=== PATIENT | female | born 1935 | race Caucasian/White ===

== ENCOUNTER 2017-07-21 16:20 | Inpatient (IN) | payer OTHER ==
[~2017-07-21] VITALS: Ht 165.1 cm; Wt 67.0 kg
[~2017-07-21 16:20] MED LIST: ADVIN25/60 INH; ASPI81TA28 PO; ATEN50TA8 PO; ATOR-22 PO; CALCTAB5 PO; CHOL1000 PO; DOCU100C31 PO; DTRSR/10 PO; FURO-85 PO; GABA-113 PO; LEVO25TA5 PO; MELATAB2 PO; VNTHFA/IN INH; VSC/5 PO
[2017-07-21] MEDS ORDERED: ASPI325T39 PO (16:37)
[2017-07-21] MEDS ORDERED: LPR25 PO (16:37)
[2017-07-21] MEDS ORDERED: PRED10TA PO (16:43)
[2017-07-21] MEDS ORDERED: AZIT250T PO (16:43)
[2017-07-21] MEDS ORDERED: WARF2.5T8 PO (16:43)
--- NOTE | 2017-07-21 16:44 | EMERGENCY ROOM VISIT NOTE ---
History Report prepared by Martin: Kenji Solis Under the Supervision of: Dr. Celio Brown M.D. First contact with patient: 16:26 Chief Complaint: REFERRED BY DOCTOR Stated Complaint: SENT FROM DR OFFICE. LOW SODIUM/HIGH POTASSIUM History of Present Illness The patient is an 82 year old white female with a past medical history of HTN, hyponatremia, stage 3 CKD, and COPD who presents to the ED with a cc of abnormal labs that were discovered prior to arrival. Positive hyponatremia, hyperkalemia. Negative AMS, pain, bowel issues, urinary symptoms, swelling. Per the patient's daughter, the patient was being seen by her PCP earlier today for a routine appt and had blood-work. The blood-work results yielded a sodium of 127, a potassium of 5.8, and a kidney function of 24.9. She was then referred to Dr. Carranza of cardiology after discovering that the patient had afib. She had an echo in the office, and then was referred here for evaluation for the abnormal labs. The patient will be put on Coumadin. Pt takes Levothyroxine and Lasix. 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 Review of Systems See HPI for pertinent positives and negatives. A total of ten systems were reviewed and were otherwise negative. Past Medical & Surgical Medical Problems: (1) CKD (chronic kidney disease), stage III (2) COPD (chronic obstructive pulmonary disease) (3) HLD (hyperlipidemia) (4) HTN (hypertension) (5) Hyponatremia (6) Right Hip DJD (7) Vulvar cancer Surgical Problems: (1) H/O carotid endarterectomy Family History Diabetes mellitus FH: cancer Social History Smoking Status: Former Smoker Drug Use: none Marital Status: Housing Status: lives alone Occupation Status: retired Current/Historical Medications Scheduled Aspirin (Aspirin Ec), 325 MG PO DAILY Atorvastatin (Lipitor), 20 MG PO QPM Azithromycin (Zithromax), 250 MG PO DIRECTED Calcium (Caltrate), 600 MG PO QAM Cholecalciferol (Vitamin D3), 2,000 INTER.UNIT PO DAILY Docusate Sodium (Docusate Sodium), 1 CAP PO BID Fluticasone Prop/Salmeterol (Advair Diskus 250/50 60 Dose), 1 PUFF INH Q12H Furosemide (Lasix), 20 MG PO DAILY Gabapentin (Neurontin), 300 MG PO QPM Levothyroxine Sodium (Levothyroxine Sodium), 25 MCG PO DAILY Melatonin (Melatonin Maximum Strengt), 1 TAB PO HS Metoprolol Tartrate (Lopressor), 25 MG PO BID Oxybutynin Chloride (Oxybutynin Chloride ER), 10 MG PO DAILY Prednisone (Prednisone), 10 MG PO DIRECTED Warfarin Sod (Jantoven), 2.5 MG PO DAILY Miscellaneous Medications Albuterol Hfa (Ventolin Hfa) Allergies Coded Allergies: Oxycodone (Unverified Allergy, Unknown, DIZZY ITCHING, 07/21/17) Simvastatin (Unverified Allergy, Unknown, RASH, 07/21/17) Tramadol (Unverified Allergy, Unknown, DIZZY, 07/21/17) Physical Exam Vital Signs Date Time Temp Pulse Resp B/P (MAP) Pulse Ox O2 Delivery O2 Flow Rate FiO2 07/21/17 18:43 96 20 171/103 96 Room Air 07/21/17 17:05 89 07/21/17 16:23 36.7 94 20 153/81 94 Room Air Physical Exam GENERAL: Awake, alert, well-appearing, NAD, hard of hearing. HENT: Normocephalic, atraumatic. Hearing aid in right ear, connected with metal clip to gown. EYES: Normal conjunctiva. Sclera non-icteric. NECK: Supple. No nuchal rigidity. FROM. RESPIRATORY: CTAB, no rhonchi, wheezing, crackles CARDIAC: Regular rate, irregular rhythm, no MRG ABDOMEN: Soft, NTND, BS+ MSK: No chest wall TTP, trace LE edema julio césar, no asymmetry NEURO: GCS 15, CN 2-12 intact, moves all 4s on command SKIN: No rash or jaundice noted. Medical Decision & Procedures ER Provider Diagnostic Interpretation: X-ray: Per my interpretation, radiologist review. SINGLE VIEW CHEST CLINICAL HISTORY: Hyponatremia. FINDINGS: An AP, portable, upright chest radiograph is compared to study dated 01/07/2016. The examination is degraded by portable technique and patient rotation. The heart is enlarged and there is atherosclerotic calcification of the thoracic aorta. There is mild congestion of the central pulmonary vasculature. Chronic interstitial thickening is similar to previous. No airspace consolidation or large pleural effusion is identified. No pneumothorax is seen. The skeletal structures are osteopenic. Advanced degenerative change is present in the shoulders and thoracic spine. IMPRESSION: 1. Cardiomegaly with mild pulmonary vascular congestion. 2. No airspace consolidation or large pleural effusion is seen. Electronically signed by: Terrell You M.D. 07/21/2017 4:58 PM Dictated Date/Time: 07/21/2017 4:57 PM Laboratory Results 07/21/17 17:05 Red Blood Count 3.62, Mean Corpuscular Volume 89.2, Mean Corpuscular Hemoglobin 31.2, Mean Corpuscular Hemoglobin Concent 35.0, Mean Platelet Volume 9.1, Neutrophils (%) (Auto) 62.7, Lymphocytes (%) (Auto) 22.5, Monocytes (%) (Auto) 10.6, Eosinophils (%) (Auto) 3.7, Basophils (%) (Auto) 0.3, Neutrophils # (Auto ) 3.91, Lymphocytes # (Auto) 1.40, Monocytes # (Auto) 0.66, Eosinophils # (Auto ) 0.23, Basophils # (Auto) 0.02 07/21/17 17:05 Test 07/21/17 17:05 White Blood Count 6.23 K/uL (4.8-10.8) Red Blood Count 3.62 M/uL (4.2-5.4) Hemoglobin 11.3 g/dL (12.0-16.0) Hematocrit 32.3 % (37-47) Mean Corpuscular Volume 89.2 fL (80-100) Mean Corpuscular Hemoglobin 31.2 pg (25-34) Mean Corpuscular Hemoglobin Concent 35.0 g/dl (32-36) Platelet Count 246 K/uL (130-400) Mean Platelet Volume 9.1 fL (7.4-10.4) Neutrophils (%) (Auto) 62.7 % Lymphocytes (%) (Auto) 22.5 % Monocytes (%) (Auto) 10.6 % Eosinophils (%) (Auto) 3.7 % Basophils (%) (Auto) 0.3 % Neutrophils # (Auto) 3.91 K/uL (1.4-6.5) Lymphocytes # (Auto) 1.40 K/uL (1.2-3.4) Monocytes # (Auto) 0.66 K/uL (0.11-0.59) Eosinophils # (Auto) 0.23 K/uL (0-0.5) Basophils # (Auto) 0.02 K/uL (0-0.2) RDW Standard Deviation 43.4 fL (36.4-46.3) RDW Coefficient of Variation 13.1 % (11.5-14.5) Immature Granulocyte % (Auto) 0.2 % Immature Granulocyte # (Auto) 0.01 K/uL (0.00-0.02) Prothrombin Time 10.7 SECONDS (9.0-12.0) Prothromb Time International Ratio 1.0 (0.9-1.1) Activated Partial Thromboplast Time 27.2 SECONDS (21.0-31.0) Partial Thromboplastin Ratio 1.0 Anion Gap 8.0 mmol/L (3-11) Est Creatinine Clear Calc Drug Dose 50.4 ml/min Estimated GFR () 77.3 Estimated GFR (Non- 66.7 BUN/Creatinine Ratio 28.0 (10-20) Osmolality 270 mOsm/kg (280-300) Calcium Level 9.3 mg/dl (8.5-10.1) Phosphorus Level 3.1 mg/dl (2.5-4.9) Magnesium Level 1.8 mg/dl (1.8-2.4) Total Bilirubin 0.4 mg/dl (0.2-1) Direct Bilirubin 0.1 mg/dl (0-0.2) Aspartate Amino Transf (AST/SGOT) 17 U/L (15-37) Alanine Aminotransferase (ALT/SGPT) 15 U/L (12-78) Alkaline Phosphatase 54 U/L (45-117) Pro-B-Type Natriuretic Peptide 6302 pg/ml (0-1800) Total Protein 7.1 gm/dl (6.4-8.2) Albumin 3.4 gm/dl (3.4-5.0) Thyroid Stimulating Hormone (TSH) 2.320 uIu/ml (0.300-4.500) Laboratory results reviewed by me ECG Indication: other (irregularly irregular, ventricular rate) Rate (beats per minute): 88 Rhythm: normal sinus Findings: other (normal QRS interval, no sts changes or TWI) ED Course 1629: Review of EMR: most recent labs here: BUN of 57, creatinine of 1.3, sodium of 142, potassium of 3.6. 1630: The patient was evaluated in room A9B. A complete history and physical exam was performed. 1814: The patient's walk test was 90-93%. 1827: I discussed the patient with Nayana Baker- she will evaluate the patient for further treatment. 1833: Upon reexamination, the patient was resting comfortably. I discussed the test results and treatment plan with her. She expressed understanding and agreement of the treatment plan. The patient will be evaluated for further management. Medical Decision The patient is an 82 year old white female with a past medical history of HTN, hyponatremia, stage 3 CKD, and COPD who presents to the ED with a cc of abnormal labs that were discovered prior to arrival. Positive hyponatremia, hyperkalemia. Negative AMS, pain, bowel issues, urinary symptoms, swelling. Differential diagnosis: SIADH, kidney dysfunction, diuretic use, medication side effect, thyroid disorder, CHF, kidney dysfunction, liver dysfunction Patient was seen and evaluated at the bedside. Patient very well-appearing although hard of hearing. Patient was referred given concern for hyponatremia and hyperkalemia. Blood work was completed. Patient did have an elevated BNP with mild vascular congestion seen on chest x-ray. Patient did have an ambulatory test and her oxygen saturation maintained 90-93%. Patient only had trace lower extremity edema. Patient did have a recent change in medications was was started on metoprolol as well as Coumadin given recent diagnosis of atrial fibrillation. Patient denies any complaints of chest pain or shortness of breath. I spoke with the hospitalist given the concern for the acute change in her sodium and they agreed the patient would benefit from additional workup. Patient admitted Medication Reconcilliation Current Medication List: was personally reviewed by me Blood Pressure Screening Patient's blood pressure: Elevated blood pressure Blood pressure disposition: Referred to PCP Consults Time Called: 1823 Consulting Physician: Nayana Baker Returned Call: 1826 I discussed the patient with Nayana Baker- she will evaluate the patient for further treatment. Impression Primary Impression: Hyponatremia Additional Impression: Atrial fibrillation Scribe Attestation The scribe's documentation has been prepared under my direction and personally reviewed by me in its entirety. I confirm that the note above accurately reflects all work, treatment, procedures, and medical decision making performed by me. Departure Information Dispostion Being Evaluated By Hospitalist Montrell Mcgee M.D. (PCP) Patient Instructions My [facility] Problem Qualifiers Additional Impression: Atrial fibrillation Atrial fibrillation type: unspecified Qualified Codes: I48.91 - Unspecified atrial fibrillation
--- NOTE | 2017-07-21 16:59 | DIAGNOSTIC IMAGING REPORT ---
SINGLE VIEW CHEST CLINICAL HISTORY: Hyponatremia. FINDINGS: An AP, portable, upright chest radiograph is compared to study dated 01/07/2016. The examination is degraded by portable technique and patient rotation. The heart is enlarged and there is atherosclerotic calcification of the thoracic aorta. There is mild congestion of the central pulmonary vasculature. Chronic interstitial thickening is similar to previous. No airspace consolidation or large pleural effusion is identified. No pneumothorax is seen. The skeletal structures are osteopenic. Advanced degenerative change is present in the shoulders and thoracic spine. IMPRESSION: 1. Cardiomegaly with mild pulmonary vascular congestion. 2. No airspace consolidation or large pleural effusion is seen. Electronically signed by: Terrell You M.D. 07/21/2017 4:58 PM Dictated Date/Time: 07/21/2017 4:57 PM
[2017-07-21 17:20] LABS: BASO % 0.3 %; BASO ABS # 0.02 K/uL (0-0.2); COMPLETE YES; EOS % 3.7 %; HEMATOCRIT 32.3 % (37-47); IG% 0.2 %; LYMPH % 22.5 %; MEAN CELL VOLUME 89.2 fL (80-100); MEAN CORPUSCULAR HEMOGLOBIN 31.2 pg (25-34); MEAN PLATELET VOLUME 9.1 fL (7.4-10.4); MONO % 10.6 %; NEUT % 62.7 %; PLATELET COUNT 246 K/uL (130-400); RED BLOOD COUNT 3.62 M/uL (4.2-5.4); WHITE BLOOD COUNT 6.23 K/uL (4.8-10.8)
[2017-07-21 17:32] LABS: PROTHROMBIN TIME (PATIENT) 10.7 SECONDS (9.0-12.0)
[2017-07-21 17:37] LABS: CALCIUM 9.3 mg/dl (8.5-10.1); CREATININE 0.81 mg/dl (0.60-1.20); MAGNESIUM 1.8 mg/dl (1.8-2.4); POTASSIUM 4.6 mmol/L (3.5-5.1)
[2017-07-21 17:49] LABS: PHOSPHORUS 3.1 mg/dl (2.5-4.9); THYROID STIMULATING HORMONE 2.32 uIu/ml (0.300-4.500)
[2017-07-21] MEDS ORDERED: ACETAMINOPHEN 325 MG TAB PO PRN (19:15)
[2017-07-21] MEDS ORDERED: ONDANSETRON INJ 2 MG/ML 2 ML VIAL IV PRN (19:15)
[2017-07-21 19:45] VITALS: BP 169/87; PULSE 99; TEMP 36.7; O2SAT 92; Ht 165.1 cm; Wt 67.0 kg
[2017-07-21] MEDS ORDERED: DOCUSATE SODIUM 100 MG CAP PO PRN (19:45)
--- NOTE | 2017-07-21 20:04 | History and Physical ---
History & Physical Date & Time of Service: Jul 21, 2017 ~ 18:45 Chief Complaint: Sent From Dr Office. Low Sodium/High Potassium Primary Care Physician: Montrell Gloria M.D. History of Present Illness 82 year old female who was referred to the ED by outpatient cardiology for evaluation of hyperkalemia and hyponatremia that was found on outpatient labs. Yesterday during a routine clinic visit with her PCP, patient was found to be atrial fibrillation. Patient had an isolated episode of atrial fibrillation during a stress test last year however has had no further documented episodes. She was evaluated by cardiology today who obtained a routine chemistry panel that showed K+ 5.8 and Na+ 127. Patient reports she has been feeling well recently. She denies any chest pain, palpitations or shortness of breath. Over the past week she has noted an occasional cough productive for clear sputum. She denies lightheadedness, dizziness, diaphoresis, and syncopal events. No abdominal pain, nausea, vomiting, or diarrhea. She denies fever and chills. No urinary symptoms. She denies any weight gain or worsening lower extremity edema. She reports her appetite fluctuates between being good and fair. She denies any dramatic changes in her diet. She reports she drinks two cups of coffee in the morning and about one bottle of water per day. She has been taking all of her medicines as prescribed and denies needing to take any additional Lasix tabs. In the ED, patient's Na+ is 126 and K+ is normal at 4.6. Past Medical/Surgical History Medical Problems: (1) Abnormal echocardiography Permanent Comment: 2016 - EF 60-64%, grade I diastolic dysfunction, mild - mod MR, mild TR Status: Chronic (2) Atrial fibrillation Status: Chronic (3) CKD (chronic kidney disease), stage III Status: Chronic (4) COPD (chronic obstructive pulmonary disease) Status: Chronic (5) HLD (hyperlipidemia) Status: Chronic (6) HTN (hypertension) Status: Chronic (7) Hypothyroidism Status: Chronic (8) Osteoporosis Status: Chronic (9) Vulvar cancer Permanent Comment: Carcinoma in situ, treated with laser Status: Chronic Surgical Problems: (1) H/O carotid endarterectomy Permanent Comment: 2003 Status: Chronic (2) History of total right hip arthroplasty Status: Chronic Family History non contributory due to patient's advanced age Social History Smoking Status: Former Smoker Alcohol Use: occasionally Immunizations History of Influenza Vaccine: Yes Influenza Vaccine Date: Jul 20, 2017 History of Tetanus Vaccine?: Yes Tetanus Immunization Date: Jun 21, 2008 History of Pneumococcal: Yes Pneumococcal Date: Aug 06, 2015 Multi-Drug Resistant Organisms History of MDRO: No Allergies Coded Allergies: Oxycodone (Unverified Allergy, Unknown, DIZZY ITCHING, 07/21/17) Simvastatin (Unverified Allergy, Unknown, RASH, 07/21/17) Tramadol (Unverified Allergy, Unknown, DIZZY, 07/21/17) Home Medications Scheduled Aspirin (Aspirin Ec), 325 MG PO DAILY Atorvastatin (Lipitor), 20 MG PO QPM Azithromycin (Zithromax), 250 MG PO DIRECTED Calcium (Caltrate), 600 MG PO QAM Cholecalciferol (Vitamin D3), 2,000 INTER.UNIT PO DAILY Fluticasone Prop/Salmeterol (Advair Diskus 250/50 60 Dose), 1 PUFF INH Q12H Furosemide (Lasix), 20 MG PO DAILY Gabapentin (Neurontin), 300 MG PO QPM Levothyroxine Sodium (Levothyroxine Sodium), 25 MCG PO DAILY Melatonin (Melatonin Maximum Strengt), 1 TAB PO HS Metoprolol Tartrate (Lopressor), 25 MG PO BID Oxybutynin Chloride (Oxybutynin Chloride ER), 10 MG PO DAILY Prednisone (Prednisone), 10 MG PO DIRECTED Warfarin Sod (Jantoven), 2.5 MG PO DAILY Scheduled PRN Albuterol Hfa (Ventolin Hfa), 2 PUFFS INH QID PRN for SOB/Wheezing Docusate Sodium (Docusate Sodium), 1 CAP PO BID PRN for Constipation Review of Systems ROS per HPI, all other systems reviewed and negative Physical Exam Vital Signs Date Time Temp Pulse Resp B/P (MAP) Pulse Ox O2 Delivery O2 Flow Rate FiO2 07/21/17 19:33 93 20 161/93 94 Room Air 07/21/17 18:43 96 20 171/103 96 Room Air 07/21/17 17:05 89 07/21/17 16:23 36.7 94 20 153/81 94 Room Air General Appearance: no apparent distress Head: normocephalic, atraumatic Eyes: normal inspection, sclerae normal ENT: + pertinent finding ([place]) Neck: supple, no JVD Respiratory/Chest: no respiratory distress, + decreased breath sounds Cardiovascular: normal peripheral pulses, + irregularly irregular (rate controlled), + pertinent finding (trace edema BLLE) Abdomen/GI: normal bowel sounds, non tender, soft Extremities/Musculoskelatal: normal inspection, no calf tenderness Neurologic/Psych: no motor/sensory deficits, alert, normal mood/affect, oriented x 3 Skin: normal color, warm/dry Diagnostics Laboratory Results Results Past 24 Hours Test 07/21/17 17:05 07/21/17 19:19 Range/Units White Blood Count 6.23 4.8-10.8 K/uL Red Blood Count 3.62 4.2-5.4 M/uL Hemoglobin 11.3 12.0-16.0 g/dL Hematocrit 32.3 37-47 % Mean Corpuscular Volume 89.2 80-100 fL Mean Corpuscular Hemoglobin 31.2 25-34 pg Mean Corpuscular Hemoglobin Concent 35.0 32-36 g/dl Platelet Count 246 130-400 K/uL Mean Platelet Volume 9.1 7.4-10.4 fL Neutrophils (%) (Auto) 62.7 % Lymphocytes (%) (Auto) 22.5 % Monocytes (%) (Auto) 10.6 % Eosinophils (%) (Auto) 3.7 % Basophils (%) (Auto) 0.3 % Neutrophils # (Auto) 3.91 1.4-6.5 K/uL Lymphocytes # (Auto) 1.40 1.2-3.4 K/uL Monocytes # (Auto) 0.66 0.11-0.59 K/uL Eosinophils # (Auto) 0.23 0-0.5 K/uL Basophils # (Auto) 0.02 0-0.2 K/uL RDW Standard Deviation 43.4 36.4-46.3 fL RDW Coefficient of Variation 13.1 11.5-14.5 % Immature Granulocyte % (Auto) 0.2 % Immature Granulocyte # (Auto) 0.01 0.00-0.02 K/uL Prothrombin Time 10.7 9.0-12.0 SECONDS Prothromb Time International Ratio 1.0 0.9-1.1 Activated Partial Thromboplast Time 27.2 21.0-31.0 SECONDS Partial Thromboplastin Ratio 1.0 Sodium Level 126 136-145 mmol/L Potassium Level 4.6 3.5-5.1 mmol/L Chloride Level 93 98-107 mmol/L Carbon Dioxide Level 25 21-32 mmol/L Anion Gap 8.0 3-11 mmol/L Blood Urea Nitrogen 23 7-18 mg/dl Creatinine 0.81 0.60-1.20 mg/dl Est Creatinine Clear Calc Drug Dose 50.4 ml/min Estimated GFR () 77.3 Estimated GFR (Non- 66.7 BUN/Creatinine Ratio 28.0 10-20 Random Glucose 100 70-99 mg/dl Osmolality 270 280-300 mOsm/kg Calcium Level 9.3 8.5-10.1 mg/dl Phosphorus Level 3.1 2.5-4.9 mg/dl Magnesium Level 1.8 1.8-2.4 mg/dl Total Bilirubin 0.4 0.2-1 mg/dl Direct Bilirubin 0.1 0-0.2 mg/dl Aspartate Amino Transf (AST/SGOT) 17 15-37 U/L Alanine Aminotransferase (ALT/SGPT) 15 12-78 U/L Alkaline Phosphatase 54 45-117 U/L Pro-B-Type Natriuretic Peptide 6302 0-1800 pg/ml Total Protein 7.1 6.4-8.2 gm/dl Albumin 3.4 3.4-5.0 gm/dl Thyroid Stimulating Hormone (TSH) 2.320 0.300-4.500 uIu/ml Diagnostic Radiology CXR IMPRESSION: 1. Cardiomegaly with mild pulmonary vascular congestion. 2. No airspace consolidation or large pleural effusion is seen. Impression Assessment and Plan HYPOTONIC HYPOVOLEMIC HYPONATREMIA - admit to tele - patient referred from outpatient cardiology office when she was found to be hyponatremic and hyperkalemic on outpatient labs; patient asymptomatic - K+ normal in the ED at 4.6, Na+ 126 - suspect hypovolemia from poor PO intake at times in combination with diuretic use - also supported with elevated BUN - will hold furosemide and give 1L NSS @ 100ml/hr and recheck Na+ 4 hours into infusion - make adjustments accordingly ATRIAL FIBRILLATION - recently diagnosed as an outpatient on routine clinic visit; asymptomatic - patient was to change atenolol to metoprolol - so will start metoprolol tomorrow; also was to start Coumadin so will give first dose tonight - obtain echo DIASTOLIC DYSFUNCTION, MILD VALVULAR DISEASE - echo 2016 - EF 60-64%, grade I diastolic dysfunction, mild - mod MR, mild TR - patient currently with mild dehydration and hyponatremia so holding diuretics - CXR read as mild congestion however no crackles noted on exam HLD - continue statin HYPOTHYROIDISM - continue levothyroxine - TSH WNL DVT PROPHYLAXIS - SQ heparin until INR > 2.0 CODE STATUS - Patient is a full code as per my discussion with her. DISPO - In my clinical judgment this beneficiary meets acute admission criteria, established by [facility], that includes being hospitalized through two midnights. ADDENDUM: I have seen and evaluated the patient and agree with the assessment and plan as stated. Waldemar, DO Level of Care Telemetry Resuscitation Status FULL RESUSCITATION VTE Prophylaxis VTE Risk Assessment Done? Y/N: Yes Risk Level: Moderate Given or contraindicated: Unfractionated heparin SQ
[2017-07-21] MEDS ORDERED: SODIUM CHLORIDE 0.9% 1000ML 1,000 ML IV SCH (21:00)
[2017-07-21] MEDS: FLUTICASONE/SALMETEROL 250/50 (ADVAIR) 14 PUFF/1 INHALER INH SCH (22:42)
[2017-07-21] MEDS: WARFARIN SOD 2.5 MG TAB PO SCH (22:43)
[2017-07-21] MEDS: ATORVASTATIN 20 MG TAB PO SCH (22:43)
[2017-07-21] MEDS: GABAPENTIN 300 MG CAP PO SCH (22:43)
[2017-07-21 23:55] VITALS: BP 156/86; PULSE 99; TEMP 36.6; O2SAT 91
[2017-07-22] VITALS (7 sets, daily range): BP systolic 128–146; BP diastolic 61–79; PULSE 53–102; TEMP 36.6–36.8; O2SAT 90–96
[2017-07-22 00:48] LABS: BUN/CREATININE RATIO 25.5 (10-20); CALCIUM 8.5 mg/dl (8.5-10.1); CREATININE 0.75 mg/dl (0.60-1.20); POTASSIUM 4.3 mmol/L (3.5-5.1)
[2017-07-22] MEDS: HEPARIN SOD 5000 UNIT/0.5 ML CARP SQ SCH ×3 (05:58→21:37)
[2017-07-22] MEDS: LEVOTHYROXINE 25 MCG TAB PO SCH (05:59)
[2017-07-22 07:03] LABS: HEMATOCRIT 31.5 % (37-47); MEAN CELL VOLUME 89.2 fL (80-100); MEAN CORPUSCULAR HEMOGLOBIN 30.6 pg (25-34); MEAN CORPUSCULAR HGB CONC 34.3 g/dl (32-36); PLATELET COUNT 232 K/uL (130-400); RED BLOOD COUNT 3.53 M/uL (4.2-5.4); WHITE BLOOD COUNT 5.59 K/uL (4.8-10.8)
[2017-07-22 07:10] LABS: PROTHROMBIN TIME (PATIENT) 11.2 SECONDS (9.0-12.0)
[2017-07-22 07:27] LABS: BUN/CREATININE RATIO 24.3 (10-20); CALCIUM 8.9 mg/dl (8.5-10.1); CREATININE 0.67 mg/dl (0.60-1.20); POTASSIUM 4.4 mmol/L (3.5-5.1)
[2017-07-22] MEDS: OXYBUTYNIN CHLORIDE 5 MG TABCR PO SCH (08:14)
[2017-07-22] MEDS: CALCIUM 600MG + VIT D 400 IU TAB PO SCH (08:14)
[2017-07-22] MEDS: ASPIRIN 325 MG ECTAB PO SCH (08:14)
[2017-07-22] MEDS: METOPROLOL TARTRATE 25 MG TAB PO SCH ×2 (08:14→21:35)
[2017-07-22] MEDS: FLUTICASONE/SALMETEROL 250/50 (ADVAIR) 14 PUFF/1 INHALER INH SCH ×2 (08:14→21:34)
[2017-07-22] MEDS: CHOLECALCIFEROL 1000 INTER.UNIT TAB PO SCH (08:14)
--- NOTE | 2017-07-22 08:35 | ECHOCARDIOGRAM REPORT ---
*NOTICE TO RECEIVING [employer] This information is strictly Confidential and protected under [place] law. [place] law prohibits you from making any further disclosure of this information unless further disclosure is expressly permitted by the written consent of the person to whom it pertains or is authorized by law. A general authorization for the release of medical or other information is not sufficient for this purpose. Hospital accepts no responsibility if the information is made available to any other person, INCLUDING THE PATIENT. Interpretation Summary * Echocardiogram Report * Name: GRACIELA COWAN Study Date: 07/22/2017 07:26 AM BP: 129/67 mmHg * Patient Location: [facility] HR: 91 * : 1935 (M/d/yyyy) Gender: Female Height: 65 in * Age: 82 yrs Ethnicity: CA Weight: 152 lb * Ordering Physician: Nayana Kahn * Referring Physician: Self, Referred * Performed By: Rocco Johnson RCS * * Reason For Study: A-FIB * BSA: 1.8 m2 * The study was technically difficult. * The study was technically limited. * -- Conclusions -- * The left ventricular wall motion is normal. * The LV Ejection Fraction = 60-65%. * The left atrium is severely dilated. * The right atrium is mildly dilated. * There is mild mitral annular calcification. * There is moderate mitral regurgitation. * There is moderate to severe tricuspid regurgitation. * There is severe pulmonary hypertension. * The pulmonary artery systolic pressure is calculated to be 64 mm Hg. Procedure Details * A complete two-dimensional transthoracic echocardiogram was performed (2D, M-mode, Doppler and color flow Doppler). Left Ventricle * The left ventricle is normal in size. * There is normal left ventricular wall thickness. * Left ventricular systolic function is normal. * Ejection Fraction = 60-65%. * The left ventricular wall motion is normal. Right Ventricle * The right ventricle is normal size. * The right ventricular systolic function is normal as assessed by tricuspid annular plane systolic excursion (TAPSE) (normal >1.5 cm). Atria * The left atrium is severely dilated. * The right atrium is mildly dilated. * There is no evidence of atrial septal defect, but resolution does not allow assessment for a patent foramen ovale. Mitral Valve * There is mild mitral annular calcification. * There is no mitral valve stenosis. * There is moderate mitral regurgitation. Tricuspid Valve * The tricuspid valve is normal. * There is no tricuspid stenosis. * There is moderate to severe tricuspid regurgitation. * There is severe pulmonary hypertension. The pulmonary artery systolic pressure is calculated to be 64 mm Hg. Aortic Valve * The aortic valve is trileaflet. * Aortic stenosis is absent. * There is no significant aortic regurgitation. Pulmonic Valve * The pulmonary valve is not well seen, but the Doppler examination is normal without significant regurgitation or stenosis. Great Vessels * The aortic root and proximal ascending aorta are normal sized. Pericardium/Pleural * There is no pericardial effusion. Great Vessels * Normal inferior vena cava diameter and respiratory variation suggests normal central venous pressure. Left Ventricular Diastolic Function * The LV diastolic function is abnormal bases on left atrial dilatation. MMode 2D Measurements and Calculations IVSd 0.77 cm LVIDd 4.3 cm LVIDs 2.4 cm LVPWd 0.99 cm IVS/LVPW 0.78 FS 42.5 % EDV(Teich) 81.2 ml ESV(Teich) 21.2 ml EF(Teich) 73.9 % EDV(cubed) 77.2 ml ESV(cubed) 14.7 ml EF(cubed) 81.0 % LV mass(C)d 118.2 grams LV mass(C)dI 67.1 grams/m\S\2 SV(Teich) 60.0 ml SI(Teich) 34.1 ml/m\S\2 SV(cubed) 62.5 ml SI(cubed) 35.5 ml/m\S\2 Ao root diam 2.8 cm Ao root area 6.0 cm\S\2 LVOT diam 2.0 cm LVOT area 3.0 cm\S\2 LVAd ap4 25.0 cm\S\2 LVLd ap4 7.3 cm EDV(MOD-sp4) 69.8 ml EDV(sp4-el) 72.7 ml LVAs ap4 13.4 cm\S\2 LVLs ap4 6.0 cm ESV(MOD-sp4) 25.2 ml ESV(sp4-el) 25.4 ml EF(MOD-sp4) 63.8 % EF(sp4-el) 65.1 % LVAd ap2 21.9 cm\S\2 LVLd ap2 7.1 cm EDV(MOD-sp2) 56.8 ml EDV(sp2-el) 57.4 ml LVAs ap2 13.0 cm\S\2 LVLs ap2 6.1 cm ESV(MOD-sp2) 24.2 ml ESV(sp2-el) 23.6 ml EF(MOD-sp2) 57.4 % EF(sp2-el) 58.9 % LVLd %diff -2.46 % EDV(MOD-bp) 62.0 ml LVLs %diff 1.1 % ESV(MOD-bp) 24.9 ml EF(MOD-bp) 59.9 % SV(MOD-sp4) 44.6 ml SI(MOD-sp4) 25.3 ml/m\S\2 SV(MOD-sp2) 32.6 ml SI(MOD-sp2) 18.5 ml/m\S\2 SV(MOD-bp) 37.1 ml SI(MOD-bp) 21.1 ml/m\S\2 SV(sp4-el) 47.3 ml SI(sp4-el) 26.9 ml/m\S\2 SV(sp2-el) 33.8 ml SI(sp2-el) 19.2 ml/m\S\2 Doppler Measurements and Calculations Ao V2 max 135.3 cm/sec Ao max PG 7.3 mmHg Ao max PG (full) 5.8 mmHg KELLEY(V,A) 1.4 cm\S\2 KELLEY(V,D) 1.4 cm\S\2 LV V1 max PG 1.5 mmHg LV V1 max 61.1 cm/sec TR max hoa 358.4 cm/sec
[2017-07-22] MEDS ORDERED: CALCIUM 600MG + VIT D 400 IU TAB PO SCH (09:00)
--- NOTE | 2017-07-22 13:16 | Cardiology Consultation ---
Cardiology Consultation Date of Consultation: Jul 22, 2017 History of Present Illness Lucero Jay is an 82 year old female seen in cardiology consultation per the request of Dr Fernando Milton for the evaluation of atrial fibrillation, tricuspid regurgitation, pulmonary hypertension, and hyponatremia. The patient's primary care provider is Dr Gloria. She lives alone with help from care givers. Her niece who is her POA accompanies her at the bedside. The patient had been seen in cardiology clinic by Dr Katelyn Carranza of our practice yesterday for consultation regarding newly diagnosed atrial fibrillation. On 07/20/17 she was seen in routine follow up by Dr Gloria of family medicine and she was noted to have an irregular heart rhythm on examination. EKG confirmed presence of atrial fibrillation. Patient denies any palpitation or awareness of her heart rate. She had dobutamine stress echo performed as an outpatient last year. At that time stress EKG demonstrated sustained atrial fibrillation which spontaneously converted to normal sinus rhythm by the following day. No further cardiac monitoring or testing was performed. She is extremely hard of hearing. She denies chest discomfort, unusual shortness of breath, lightheadedness, dizziness, syncope, near syncope, lower extremity edema , or claudication. She ambulates with use of a walker. No recent falls or injuries. She had fallen and broke her hip in September,. Hip repair was performed in April,. Dr Carranza recommended labs, a resting transthoracic echocardiogram, and metoprolol. Labs performed included findings of new hyponatremia and also hyperkalemia with a sodium of 127mmol/l and elevated potassium of 5.8. Sodium was 138 in 01/2017. TSH was normal yesterday at 3.04 miu/L. Patient was referred to the hospital for further treatment. Past Medical/Surgical History Problem List: Medical Problems: (1) Abnormal echocardiography (2) Atrial fibrillation (3) CKD (chronic kidney disease), stage III (4) COPD (chronic obstructive pulmonary disease) (5) HLD (hyperlipidemia) (6) HTN (hypertension) (7) Hypothyroidism (8) Osteoporosis (9) Vulvar cancer Surgical Problems: (1) H/O carotid endarterectomy (2) History of total right hip arthroplasty History Social History: Patient lives at home with patent caregivers Family History: Noncontributory. Review Of Systems See above for pertinent positives & negatives. A total of 10 systems reviewed and were otherwise negative. Allergies Coded Allergies: Oxycodone (Unverified Allergy, Unknown, DIZZY ITCHING, 07/21/17) Simvastatin (Unverified Allergy, Unknown, RASH, 07/21/17) Tramadol (Unverified Allergy, Unknown, DIZZY, 07/21/17) Medications Reported Home Medications Medications Dose Route/Sig Max Daily Dose Days Date Category Dose Instructions Jantoven (Warfarin Sodium) 2.5 Mg Tab 2.5 Mg PO DAILY 07/21/17 Reported Prednisone 10 Mg Tab 10 Mg PO DIRECTED 07/21/17 Reported COPD RESCUE KIT Zithromax (Azithromycin) 250 Mg Tab 250 Mg PO DIRECTED 07/21/17 Reported COPD RESCUE KIT Lopressor (Metoprolol Tartrate) 25 Mg Tab 25 Mg PO BID 07/21/17 Reported Aspirin Ec (Aspirin) 325 Mg Tab 325 Mg PO DAILY 07/21/17 Reported Ventolin Hfa (Albuterol) 200 Puffs/64357 Mcg Aers 2 Puffs INH QID PRN 10/19/16 Reported Oxybutynin Chloride ER (Oxybutynin Chloride) 10 Mg Tabcr 10 Mg PO DAILY 10/19/16 Reported Levothyroxine Sodium 25 Mcg Tab 25 Mcg PO DAILY 10/19/16 Reported Melatonin Maximum Strengt (Melatonin) 5 Mg Tab 1 Tab PO HS 30 03/28/16 Reported Neurontin (Gabapentin) 300 Mg Cap 300 Mg PO QPM 03/28/16 Reported Docusate Sodium 100 Mg Cap 1 Cap PO BID PRN 30 03/28/16 Reported Advair Diskus 250/50 60 Dose (Fluticasone Prop/Salmeterol) 1 Ea Aerp 1 Puff INH Q12H 01/07/16 Reported Lasix (Furosemide) 20 Mg Tab 20 Mg PO DAILY 01/07/16 Reported TAKE 20 MG DAILY, MAY TAKE UP TO 60 MG DAILY IF NEEDED Lipitor (Atorvastatin Calcium) 20 Mg Tab 20 Mg PO QPM 01/07/16 Reported Vitamin D3 (Cholecalciferol) 1,000 Unit Tab 2,000 Inter.unit PO DAILY 90 01/07/16 Reported Caltrate (Calcium) 600 Mg Tab 600 Mg PO QAM 01/07/16 Reported Physical Exam Vital Signs (Last 8hrs): Last 8 Hrs Date Time Temp Pulse Resp B/P (MAP) Pulse Ox O2 Delivery O2 Flow Rate FiO2 07/22/17 11:30 36.6 53 18 131/75 (93) 96 07/22/17 08:30 Room Air 07/22/17 07:09 36.7 91 20 134/79 (97) 94 Room Air General Appearance: Alert and Oriented x3. NAD. Hard of hearing Head: Normocephalic Atraumatic. Eyes: PERRLA, EOMI, conjunctiva and sclera clear Neck: Supple. No carotid bruits noted. No JVD. No HJD. Respiratory: Breath sounds clear to auscultation bilaterally. No w/r/r. Cardiovascular: irregular rhythm, 2/6 SM Abdomen: Normal bowel sounds, soft nontender. no abdominal bruits. Extremities: No edema, no clubbing or cyanosis. distal pulses 2/4 bilaterally. Neuro: No focal deficits. Data Last Resulted 07/22/17 06:46 Last Resulted 07/22/17 06:46 Past 24 Hours Test 07/21/17 17:05 07/22/17 06:46 Range/Units Prothromb Time International Ratio 1.0 1.0 0.9-1.1 Prothrombin Time 10.7 11.2 9.0-12.0 SECONDS CXR: per radiology report, mild interstitial edema EKG performed 07/21/17 and reviewed independently: AF at 88 bpm, no significant ST changed. Telemetry reviewed: TTecho performed at [place] on 07/22/17 and reviewed personally by the undersigned: * The left ventricular wall motion is normal. * The LV Ejection Fraction = 60-65%. * The left atrium is severely dilated. * The right atrium is mildly dilated. * There is mild mitral annular calcification. * There is moderate mitral regurgitation. * There is moderate to severe tricuspid regurgitation. * There is severe pulmonary hypertension. * The pulmonary artery systolic pressure is calculated to be 64 mm Hg. Dobutamine stress echocardiography 01/2016, at [facility] [place]: The stress echo is negative for inducible ischemia. Sustained atrial fibrillation was noted during stress and recovery. Patient asymptomatic. Resting Study: The qualitative LV ejection fraction is 60-64% (normal). The left atrium is moderately enlarged. The left ventricular diastolic function is mildly abnormal (grade I). Mild to moderate mitral regurgitation. Mild tricuspid regurgitation is present. The estimated pulmonary artery systolic pressure is 40mm Hg. Assessment & Plan Impression: 82 year old female 1. Newly recognized atrial fibrillation, asymptomatic 2. Normal left ventricular ejection fraction, echocardiogram findings suggestive of diastolic dysfunction, with chart history of mild COPD -The patient's outpatient chart reflects a history of mild COPD. Her current echocardiogram performed today reveals progression of the tricuspid regurgitation which was graded as being mild in 2016 and is now moderate to severe, with mild elevation in the pulmonary artery systolic pressure 40 mmHg in 2016 as compared to 64 mmHg on the present study. -The pulmonary hypertension may be reflective of underlying COPD, versus reflective of chronic diastolic dysfunction with elevated left-sided filling pressures causing elevated right-sided filling pressures. 3. Euvolemic hyponatremia Discussion/recommendation: The patient's potassium was normal on repeat blood work when she came to the hospital, and perhaps this was laboratory error. Hyponatremia persists after receiving IV fluids last evening. At present, although her BNP is elevated and the radiology report describes mild interstitial changes suggestive point edema, the patient does not examine as if she is volume overloaded. I however agree with stopping her IV fluids as I think she will be at risk for volume overload if we continue normal saline. Long-term, I think she would benefit from being on her furosemide, I think this should be held for the time being and we should monitor her sodium. I do not believe she is symptomatic from a hyponatremia standpoint. This appears to of been an incidental laboratory finding when a chemistry panel was performed for further evaluation of her recently diagnosed atrial fibrillation. I agree with Dr. Carranza's plan to place the patient on Coumadin. Although she is frail, walks with walker, she is at significant risk for cardioembolic stroke, and I think a trial of anticoagulation is indicated, and her niece who is her power of litigation attorney associate is agreeable. I have notified our office that her echocardiogram was performed here and it does not need to be scheduled at [facility] as previously planned. Agree with nephrology input regarding hyponatremia. Patient does not require bridge therapy, can just proceed with coumadin initiation. James Gustafson,
--- NOTE | 2017-07-22 13:47 | Progress Note ---
Internal Med Progress Note Date of Service: Jul 22, 2017. Provider Documentation: SUBJECTIVE: patient has difficulty with hearing, use to have functional hearing aids. denies pain. denies shortness of breath OBJECTIVE: General Appearance: no apparent distress Head: normocephalic, atraumatic Eyes: normal inspection, sclerae normal Neck: supple, no JVD Respiratory/Chest: no respiratory distress, + decreased breath sounds Cardiovascular: normal peripheral pulses, + irregularly irregular (rate controlled), trace edema BLLE Abdomen/GI: normal bowel sounds, non tender, soft Extremities: normal inspection, no calf tenderness Neurologic/Psych: no motor/sensory deficits, alert, normal mood/affect, oriented x 3 Skin: normal color, warm/dry ASSESSMENT & PLAN: 82 yo F with history of COPD, atrial fibrillation and recently started on coumadin who was sent from clinic to hospital for evaluation of hyponatremia which was 126 on admission 07/21/17. Lasix was held and patient received IV fluids with normal saline and serum sodium improved to 129. Is clinically euvolemic but had elevated BNP. Because of cardiac history an echo was performed with normal ejection fraction and severe pulmonary hypertension with dilated atria and valvular regurgitation. Cardiology and Nephrology consulted as patient has above cardiac history and was on Lasix at home for diuresis with this hyponatremia. The consensus based on consultation with the specialists is to stop IV fluids, implement fluid restriction, restart Lasix. Will trend serum sodium. Will continue to give coumadin daily and trend INR Echo on this admission The left ventricular wall motion is normal. * The LV Ejection Fraction = 60-65%. * The left atrium is severely dilated. * The right atrium is mildly dilated. * There is mild mitral annular calcification. * There is moderate mitral regurgitation. * There is moderate to severe tricuspid regurgitation. * There is severe pulmonary hypertension. * The pulmonary artery systolic pressure is calculated to be 64 mm Hg. Dobutamine stress echocardiography 01/2016, at [facility] [place]: The stress echo is negative for inducible ischemia. Sustained atrial fibrillation was noted during stress and recovery. Patient asymptomatic. Resting Study: The qualitative LV ejection fraction is 60-64% (normal). The left atrium is moderately enlarged. The left ventricular diastolic function is mildly abnormal (grade I). Mild to moderate mitral regurgitation. Mild tricuspid regurgitation is present. The estimated pulmonary artery systolic pressure is 40mm Hg. HYPOTONIC HYPOVOLEMIC HYPONATREMIA - patient referred from outpatient cardiology office when she was found to be hyponatremic and hyperkalemic on outpatient labs; patient asymptomatic - K+ normal in the ED at 4.6, Na+ 126 - Lasix was held on admission and patient received IV fluids with normal saline and serum sodium improved to 129 - based on consultation with the cardiology and nephrology: stop IV fluids, implement fluid restriction, restart Lasix - monitor electrolytes, serum potassium stable ATRIAL FIBRILLATION -continue coumadin 2.5 mg daily, trend INR -beta lazara DIASTOLIC DYSFUNCTION, VALVULAR REGURGITATION, DILATED ATRIA, SEVERE PULMONARY HTN -restart Lasix HLD - continue statin HYPOTHYROIDISM - continue levothyroxine - TSH WNL DVT PROPHYLAXIS - SQ heparin until INR > 2.0 CODE STATUS - Patient is a full code Disposition: likely discharge home tomorrow if serum sodium remains stable or improves Vital Signs: Date Time Temp Pulse Resp B/P (MAP) Pulse Ox O2 Delivery O2 Flow Rate FiO2 07/22/17 12:00 Room Air 07/22/17 11:30 36.6 53 18 131/75 (93) 96 07/22/17 08:30 Room Air 07/22/17 07:09 36.7 91 20 134/79 (97) 94 Room Air 07/22/17 04:07 36.6 93 20 129/67 (87) 92 Room Air 07/22/17 04:00 Room Air 07/22/17 00:00 Room Air 07/21/17 23:55 36.6 99 20 156/86 (109) 91 Room Air 07/21/17 19:45 36.7 99 22 169/87 92 Room Air 07/21/17 19:33 93 20 161/93 94 Room Air 07/21/17 18:43 96 20 171/103 96 Room Air 07/21/17 17:05 89 07/21/17 16:23 36.7 94 20 153/81 94 Room Air Lab Results: Results Past 24 Hours Test 07/21/17 17:05 07/22/17 00:19 07/22/17 02:25 07/22/17 06:46 Range/Units White Blood Count 6.23 5.59 4.8-10.8 K/uL Red Blood Count 3.62 3.53 4.2-5.4 M/uL Hemoglobin 11.3 10.8 12.0-16.0 g/dL Hematocrit 32.3 31.5 37-47 % Mean Corpuscular Volume 89.2 89.2 80-100 fL Mean Corpuscular Hemoglobin 31.2 30.6 25-34 pg Mean Corpuscular Hemoglobin Concent 35.0 34.3 32-36 g/dl Platelet Count 246 232 130-400 K/uL Mean Platelet Volume 9.1 9.0 7.4-10.4 fL Neutrophils (%) (Auto) 62.7 % Lymphocytes (%) (Auto) 22.5 % Monocytes (%) (Auto) 10.6 % Eosinophils (%) (Auto) 3.7 % Basophils (%) (Auto) 0.3 % Neutrophils # (Auto) 3.91 1.4-6.5 K/uL Lymphocytes # (Auto) 1.40 1.2-3.4 K/uL Monocytes # (Auto) 0.66 0.11-0.59 K/uL Eosinophils # (Auto) 0.23 0-0.5 K/uL Basophils # (Auto) 0.02 0-0.2 K/uL RDW Standard Deviation 43.4 43.0 36.4-46.3 fL RDW Coefficient of Variation 13.1 13.1 11.5-14.5 % Immature Granulocyte % (Auto) 0.2 % Immature Granulocyte # (Auto) 0.01 0.00-0.02 K/uL Prothrombin Time 10.7 11.2 9.0-12.0 SECONDS Prothromb Time International Ratio 1.0 1.0 0.9-1.1 Activated Partial Thromboplast Time 27.2 21.0-31.0 SECONDS Partial Thromboplastin Ratio 1.0 Sodium Level 126 129 129 136-145 mmol/L Potassium Level 4.6 4.3 4.4 3.5-5.1 mmol/L Chloride Level 93 96 97 98-107 mmol/L Carbon Dioxide Level 25 26 24 21-32 mmol/L Anion Gap 8.0 7.0 8.0 3-11 mmol/L Blood Urea Nitrogen 23 19 16 7-18 mg/dl Creatinine 0.81 0.75 0.67 0.60-1.20 mg/dl Est Creatinine Clear Calc Drug Dose 50.4 50.2 56.2 ml/min Estimated GFR () 77.3 84.8 93.6 Estimated GFR (Non- 66.7 73.2 80.7 BUN/Creatinine Ratio 28.0 25.5 24.3 10-20 Random Glucose 100 109 94 70-99 mg/dl Osmolality 270 280-300 mOsm/kg Calcium Level 9.3 8.5 8.9 8.5-10.1 mg/dl Phosphorus Level 3.1 2.5-4.9 mg/dl Magnesium Level 1.8 1.8-2.4 mg/dl Total Bilirubin 0.4 0.2-1 mg/dl Direct Bilirubin 0.1 0-0.2 mg/dl Aspartate Amino Transf (AST/SGOT) 17 15-37 U/L Alanine Aminotransferase (ALT/SGPT) 15 12-78 U/L Alkaline Phosphatase 54 45-117 U/L Pro-B-Type Natriuretic Peptide 6302 0-1800 pg/ml Total Protein 7.1 6.4-8.2 gm/dl Albumin 3.4 3.4-5.0 gm/dl Thyroid Stimulating Hormone (TSH) 2.320 0.300-4.500 uIu/ml Urine Osmolality 361 500-800 mOms/kg Urine Random Sodium 54 mEq/L Urine Random Potassium 38.4 mEq/L Urine Random Chloride 59 mEq/L Test 07/22/17 11:28 Range/Units Osmolality 265 280-300 mOsm/kg
[2017-07-22] MEDS ORDERED: FUROSEMIDE 20 MG TAB PO STA (13:49)
[2017-07-22] MEDS: WARFARIN SOD 2.5 MG TAB PO SCH (16:08)
[2017-07-22] MEDS: GABAPENTIN 300 MG CAP PO SCH (21:34)
[2017-07-22] MEDS: ATORVASTATIN 20 MG TAB PO SCH (21:34)
[2017-07-23 02:25] VITALS: BP 168/86; PULSE 99; TEMP 37; O2SAT 93
[2017-07-23 04:00] VITALS: O2SAT 93
[2017-07-23] MEDS: HEPARIN SOD 5000 UNIT/0.5 ML CARP SQ SCH ×3 (05:54→14:40)
[2017-07-23] MEDS: LEVOTHYROXINE 25 MCG TAB PO SCH (05:55)
[2017-07-23 06:44] LABS: BASO % 0.2 %; BASO ABS # 0.01 K/uL (0-0.2); COMPLETE YES; HEMATOCRIT 31.3 % (37-47); LYMPH % 22.7 %; LYMPH ABS # 1.21 K/uL (1.2-3.4); MEAN CELL VOLUME 90.5 fL (80-100); MEAN CORPUSCULAR HEMOGLOBIN 30.1 pg (25-34); MEAN CORPUSCULAR HGB CONC 33.2 g/dl (32-36); MONO % 10.2 %; NEUT % 63.9 %; PLATELET COUNT 224 K/uL (130-400); RED BLOOD COUNT 3.46 M/uL (4.2-5.4); WHITE BLOOD COUNT 5.32 K/uL (4.8-10.8)
[2017-07-23 07:02] LABS: INR 1.1 (0.9-1.1); PROTHROMBIN TIME (PATIENT) 11.9 SECONDS (9.0-12.0)
[2017-07-23 07:17] VITALS: BP 166/84; PULSE 98; TEMP 37; O2SAT 93
[2017-07-23 07:28] LABS: BUN/CREATININE RATIO 19.1 (10-20); CALCIUM 8.5 mg/dl (8.5-10.1); CREATININE 0.75 mg/dl (0.60-1.20); POTASSIUM 4.1 mmol/L (3.5-5.1)
[2017-07-23 07:30] LABS: ALB/GLOB RATIO 0.9 (0.9-2)
[2017-07-23] MEDS: FLUTICASONE/SALMETEROL 250/50 (ADVAIR) 14 PUFF/1 INHALER INH SCH (07:53)
[2017-07-23] MEDS: METOPROLOL TARTRATE 25 MG TAB PO SCH (07:53)
[2017-07-23] MEDS: OXYBUTYNIN CHLORIDE 5 MG TABCR PO SCH (07:54)
[2017-07-23] MEDS: ASPIRIN 325 MG ECTAB PO SCH (07:54)
[2017-07-23] MEDS: CALCIUM 600MG + VIT D 400 IU TAB PO SCH (07:54)
[2017-07-23] MEDS: CHOLECALCIFEROL 1000 INTER.UNIT TAB PO SCH (07:54)
--- NOTE | 2017-07-23 08:13 | NEPHROLOGY CONSULTATION ---
DATE OF CONSULTATION: 07/23/2017 DATE OF CONSULTATION: 07/23/2017 ATTENDING OF RECORD: Dr. Milton. REASON FOR CONSULTATION: Hyponatremia. HISTORY OF PRESENT ILLNESS: This is 82-year-old female who has history of pulmonary hypertension with mild to moderate MR and pulmonary systolic pressure of 40 who is on Lasix as an outpatient and lives alone and had outpatient lab work showing a potassium of 5.8 and a sodium level 127. In the ER, sodium was 126. The patient's Lasix was held and patient was given a liter of fluids. The patient is feeling better now and inquiring about going home. Sodium level went from 126 up to 129. Thyroid levels were good at 2.3. Urine osms were in the 300s. PAST MEDICAL HISTORY: Afib, CKD stage III with a creatinine under 1, COPD, hypertension, hypothyroidism, history of vulvar carcinoma in situ, pulmonary hypertension. 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 FAMILY HISTORY: No renal disease in family. SOCIAL HISTORY: Former smoker, occasional alcohol, no drugs. Lives alone but has help. HOME MEDICATIONS: Significant for Lasix 20 mg daily. REVIEW OF SYSTEMS: No diarrhea or constipation. No shortness of breath with exertion. No chest pain. No headaches. No lightheadedness. No swelling. No rash or itching. The patient relatively asymptomatic and states she feels good. CURRENT MEDICATIONS: Lasix 20 mg a day, aspirin 325 mg daily, vitamin D 2000 units daily, Lopressor 25 mg p.o. b.i.d., Ditropan 10 mg daily, Caltrate 1 tab daily, Synthroid 25 mcg daily, heparin 5000 units subQ q. 8, Lipitor 20 mg daily, Advair inhaler twice a day, Neurontin 300 mg at night, Coumadin 2.5 mg daily. PHYSICAL EXAMINATION: VITAL SIGNS: Temperature 37, pulse 99, respiratory rate 16, blood pressure is 168/86 this morning, satting 93% on room air. GENERAL: Awake, alert, oriented x3, hard of hearing. EYES: No scleral icterus. EARS, NOSE, THROAT: Moist mucous membranes. NECK: Supple. PULMONARY: Clear to auscultation. CARDIAC: 2/6 systolic murmur with ectopy. ABDOMEN: Bowel sounds positive, soft, nontender. EXTREMITIES: No clubbing, cyanosis or edema. NEUROLOGICALLY: Nonfocal. DERMATOLOGIC: No rash or ulcers noted. LABORATORY DATA: Pending for today. Last sodium 129, potassium 4.4, chloride 97, bicarbonate is 24, BUN 16, creatinine 0.67. Serum osmolality was low at 265. Calcium is 8.9. White count is 5.3, H&H 10 and 31, platelet count is 224. Chest x-ray showed cardiomegaly with mild pulmonary vascular congestion. ASSESSMENT AND PLAN: Hyponatremia. Difficult to tram operator volume status in this elderly female. To me she looks euvolemic. However, patient came in on low dose Lasix 20 mg a day to help with her pulmonary hypertension and severe TR with moderate MR, however, does not have edema in her legs. No abdominal distention. Perhaps she may have had an element of volume depletion given the urine osm is above 300 which improved with normal saline. However, difficult situation given her significant poor cardiac echo findings and the need to optimize her heart as best as possible. Would like to discuss further with cardiology. Currently on low dose Lasix 20 mg a day and currently recommending a 1500 mL fluid restriction. Given the severity of her pulmonary hypertension would expect some swelling in her lower extremities and make me think that she may be on the dry side. We will see what her sodium levels are this morning. Ideally would see if we could lower the dose of Lasix from 20 mg a day to 20 mg every other day with concomitant fluid restriction to see if we can keep the sodium levels up while still optimizing the heart. However, if medically necessary to continue the Lasix, would do so in the setting of 1500 mL fluid restriction and follow labs as an outpatient. If sodium levels are stable at 129 to 130 today okay from the renal standpoint to be discharged with repeat BMP next week to follow sodium levels. However, I feel that the patient did present with an element of volume depletion and from a sodium standpoint would likely benefit from stopping the diuretic if possible, although a complicated situation as we all agree. Appreciate consultation.
[2017-07-23] MEDS ORDERED: FUROSEMIDE 20 MG TAB PO SCH (09:00)
[2017-07-23 11:18] VITALS: BP 165/79; PULSE 107; TEMP 36.8; O2SAT 95
--- NOTE | 2017-07-23 15:03 | Progress Note ---
Internal Med Progress Note Date of Service: Jul 23, 2017. Provider Documentation: SUBJECTIVE: patient denies chest pain or shortness of breath. patient's family niece at the bedside Ms. Wallace [phone] who also collaborates that patient did not have head trauma and is the same mental status baseline despite hyponatremia. OBJECTIVE: General Appearance: no apparent distress Head: normocephalic, atraumatic Eyes: normal inspection, sclerae normal Neck: supple, no JVD Respiratory/Chest: no respiratory distress, clear to auscultation Cardiovascular: normal peripheral pulses, + irregularly irregular (rate controlled), trace edema BLLE Abdomen/GI: normal bowel sounds, non tender, soft Extremities: normal inspection, no calf tenderness Neurologic/Psych: no motor/sensory deficits, alert, normal mood/affect, oriented x 3 Skin: normal color, warm/dry ASSESSMENT & PLAN: 82 yo F with history of COPD, atrial fibrillation and recently started on coumadin who was sent from clinic to hospital for evaluation of hyponatremia which was 126 on admission 07/21/17. Lasix was held and patient received IV fluids with normal saline and serum sodium improved to 129. Is clinically euvolemic but had elevated BNP. Because of cardiac history an echo was performed with normal ejection fraction and severe pulmonary hypertension with dilated atria and valvular regurgitation. Cardiology and Nephrology consulted as patient has above cardiac history and was on Lasix at home for diuresis with this hyponatremia. The consensus based on initial consultation with the specialists is to stop IV fluids, implement fluid restriction, restart Lasix. Subsequently stable serum soidum 129. Echo on this admission The left ventricular wall motion is normal. * The LV Ejection Fraction = 60-65%. * The left atrium is severely dilated. * The right atrium is mildly dilated. * There is mild mitral annular calcification. * There is moderate mitral regurgitation. * There is moderate to severe tricuspid regurgitation. * There is severe pulmonary hypertension. * The pulmonary artery systolic pressure is calculated to be 64 mm Hg. Dobutamine stress echocardiography 01/2016, at [facility] [place]: The stress echo is negative for inducible ischemia. Sustained atrial fibrillation was noted during stress and recovery. Patient asymptomatic. Resting Study: The qualitative LV ejection fraction is 60-64% (normal). The left atrium is moderately enlarged. The left ventricular diastolic function is mildly abnormal (grade I). Mild to moderate mitral regurgitation. Mild tricuspid regurgitation is present. The estimated pulmonary artery systolic pressure is 40mm Hg. HYPOTONIC HYPOVOLEMIC HYPONATREMIA - patient referred from outpatient cardiology office when she was found to be hyponatremic and hyperkalemic on outpatient labs; patient asymptomatic - K+ normal in the ED at 4.6, Na+ 126 - Lasix was held on admission and patient received IV fluids with normal saline and serum sodium improved to 129 - based on consultation with the cardiology and nephrology: stop IV fluids, implement fluid restriction, restart Lasix - monitor electrolytes, serum potassium stable at 129 -as per nephrology consult on 07/23/17: Currently on low dose Lasix 20 mg a day and currently recommending a 1500 mL fluid restriction. Ideally would lower the dose of Lasix from 20 mg a day to 20 mg every other day with concomitant fluid restriction to see if we can keep the sodium levels up while still optimizing the heart. However, if medically necessary to continue the Lasix, would do so in the setting of 1500 mL fluid restriction and follow labs as an outpatient. If sodium levels are stable at 129 to 130 today okay from the renal standpoint to be discharged with repeat BMP next week to follow sodium levels. ATRIAL FIBRILLATION -continue coumadin 2.5 mg daily, trend INR -beta lazara DIASTOLIC DYSFUNCTION, VALVULAR REGURGITATION, DILATED ATRIA, SEVERE PULMONARY HTN -restart Lasix HLD - continue statin HYPOTHYROIDISM - continue levothyroxine - TSH WNL DVT PROPHYLAXIS - SQ heparin until INR > 2.0 while inpatient CODE STATUS - Patient is a full code Disposition: discharge home with follow up to primary medical doctor for further followup of serum sodium and titration of diuresis [facility], Montrell Trivedi MD [phone] on Thursday at 10:45 AM other discharge appointments: 07/24/2017 6:15 PM [facility] 2:15 PM Montrell Alarcon PA-C Cardiology, [facility] Vital Signs: Date Time Temp Pulse Resp B/P (MAP) Pulse Ox O2 Delivery O2 Flow Rate FiO2 07/23/17 12:00 Room Air 07/23/17 11:18 36.8 107 18 165/79 (107) 95 07/23/17 08:00 Room Air 07/23/17 07:17 37.0 98 18 166/84 (111) 93 07/23/17 04:00 93 Room Air 07/23/17 02:25 37.0 99 16 168/86 (113) 93 Room Air 07/22/17 23:59 93 Room Air 07/22/17 23:45 36.8 102 20 128/61 (83) 93 Room Air 07/22/17 20:00 Room Air 07/22/17 19:00 93 18 143/76 (98) 94 Room Air 07/22/17 16:00 Room Air 07/22/17 15:45 36.7 84 20 146/71 (96) 90 Room Air Lab Results: Results Past 24 Hours Test 07/22/17 18:31 07/23/17 06:23 Range/Units Urine Osmolality 322 500-800 mOms/kg Urine Random Sodium 73 mEq/L White Blood Count 5.32 4.8-10.8 K/uL Red Blood Count 3.46 4.2-5.4 M/uL Hemoglobin 10.4 12.0-16.0 g/dL Hematocrit 31.3 37-47 % Mean Corpuscular Volume 90.5 80-100 fL Mean Corpuscular Hemoglobin 30.1 25-34 pg Mean Corpuscular Hemoglobin Concent 33.2 32-36 g/dl Platelet Count 224 130-400 K/uL Mean Platelet Volume 9.0 7.4-10.4 fL Neutrophils (%) (Auto) 63.9 % Lymphocytes (%) (Auto) 22.7 % Monocytes (%) (Auto) 10.2 % Eosinophils (%) (Auto) 3.0 % Basophils (%) (Auto) 0.2 % Neutrophils # (Auto) 3.40 1.4-6.5 K/uL Lymphocytes # (Auto) 1.21 1.2-3.4 K/uL Monocytes # (Auto) 0.54 0.11-0.59 K/uL Eosinophils # (Auto) 0.16 0-0.5 K/uL Basophils # (Auto) 0.01 0-0.2 K/uL RDW Standard Deviation 43.5 36.4-46.3 fL RDW Coefficient of Variation 13.2 11.5-14.5 % Immature Granulocyte % (Auto) 0.0 % Immature Granulocyte # (Auto) 0.00 0.00-0.02 K/uL Prothrombin Time 11.9 9.0-12.0 SECONDS Prothromb Time International Ratio 1.1 0.9-1.1 Sodium Level 129 136-145 mmol/L Potassium Level 4.1 3.5-5.1 mmol/L Chloride Level 97 98-107 mmol/L Carbon Dioxide Level 24 21-32 mmol/L Anion Gap 8.0 3-11 mmol/L Blood Urea Nitrogen 14 7-18 mg/dl Creatinine 0.75 0.60-1.20 mg/dl Est Creatinine Clear Calc Drug Dose 50.2 ml/min Estimated GFR () 84.8 Estimated GFR (Non- 73.2 BUN/Creatinine Ratio 19.1 10-20 Random Glucose 90 70-99 mg/dl Calcium Level 8.5 8.5-10.1 mg/dl Total Bilirubin 0.5 0.2-1 mg/dl Aspartate Amino Transf (AST/SGOT) 12 15-37 U/L Alanine Aminotransferase (ALT/SGPT) 11 12-78 U/L Alkaline Phosphatase 45 45-117 U/L Total Protein 6.0 6.4-8.2 gm/dl Albumin 2.9 3.4-5.0 gm/dl Globulin 3.1 2.5-4.0 gm/dl Albumin/Globulin Ratio 0.9 0.9-2
--- NOTE | 2017-07-23 15:24 | Discharge Instructions ---
Discharge Instructions Date of Service Jul 23, 2017. Admission Reason for Admission: Hyponatremia Discharge Discharge Diagnosis / Problem: hyponatramia, atrialfibrillation on coumadin, pulmonary hypertension Discharge Goals Goal(s): Prevent Disease Progression Activity Recommendations Activity Limitations: per Instructions/Follow-up section Lifting Limitations: until after follow-up appointment Exercise/Sports Limitations: until after follow-up appointment Shower/Bathe: no limitations . Instructions / Follow-Up Instructions / Follow-Up Disposition: discharge home with follow up to primary medical doctor for further followup of serum sodium and titration of diuresis [facility] [phone] on Thursday at 10:45 AM other discharge appointments: 07/24/2017 6:[address] [facility] 08/06/2017 2:15 PM Montrell Alarcon PA-C Cardiology, [facility] Please seek medical attention if patient develops confusion, shortness of breath , chest pain, vomiting Current Hospital Diet Patient's current hospital diet: AHA Diet (Heart Healthy) Discharge Diet Recommended Diet: AHA Diet (Heart Healthy) Pending Studies Studies pending at discharge: no Laboratory Results 07/23/17 06:23 Red Blood Count 3.46, Mean Corpuscular Volume 90.5, Mean Corpuscular Hemoglobin 30.1, Mean Corpuscular Hemoglobin Concent 33.2, Mean Platelet Volume 9.0, Neutrophils (%) (Auto) 63.9, Lymphocytes (%) (Auto) 22.7, Monocytes (%) (Auto) 10.2, Eosinophils (%) (Auto) 3.0, Basophils (%) (Auto) 0.2, Neutrophils # (Auto ) 3.40, Lymphocytes # (Auto) 1.21, Monocytes # (Auto) 0.54, Eosinophils # (Auto ) 0.16, Basophils # (Auto) 0.01 07/23/17 06:23 Test 07/21/17 17:05 07/22/17 02:25 07/22/17 11:28 07/22/17 18:31 Activated Partial Thromboplast Time 27.2 SECONDS (21.0-31.0) Partial Thromboplastin Ratio 1.0 Phosphorus Level 3.1 mg/dl (2.5-4.9) Magnesium Level 1.8 mg/dl (1.8-2.4) Direct Bilirubin 0.1 mg/dl (0-0.2) Pro-B-Type Natriuretic Peptide 6302 pg/ml (0-1800) Thyroid Stimulating Hormone (TSH) 2.320 uIu/ml (0.300-4.500) Urine Random Sodium 54 mEq/L 73 mEq/L Urine Random Potassium 38.4 mEq/L Urine Random Chloride 59 mEq/L Osmolality 265 mOsm/kg (280-300) Urine Osmolality 322 mOms/kg (500-800) Test 07/23/17 06:23 White Blood Count 5.32 K/uL (4.8-10.8) Red Blood Count 3.46 M/uL (4.2-5.4) Hemoglobin 10.4 g/dL (12.0-16.0) Hematocrit 31.3 % (37-47) Mean Corpuscular Volume 90.5 fL (80-100) Mean Corpuscular Hemoglobin 30.1 pg (25-34) Mean Corpuscular Hemoglobin Concent 33.2 g/dl (32-36) Platelet Count 224 K/uL (130-400) Mean Platelet Volume 9.0 fL (7.4-10.4) Neutrophils (%) (Auto) 63.9 % Lymphocytes (%) (Auto) 22.7 % Monocytes (%) (Auto) 10.2 % Eosinophils (%) (Auto) 3.0 % Basophils (%) (Auto) 0.2 % Neutrophils # (Auto) 3.40 K/uL (1.4-6.5) Lymphocytes # (Auto) 1.21 K/uL (1.2-3.4) Monocytes # (Auto) 0.54 K/uL (0.11-0.59) Eosinophils # (Auto) 0.16 K/uL (0-0.5) Basophils # (Auto) 0.01 K/uL (0-0.2) RDW Standard Deviation 43.5 fL (36.4-46.3) RDW Coefficient of Variation 13.2 % (11.5-14.5) Immature Granulocyte % (Auto) 0.0 % Immature Granulocyte # (Auto) 0.00 K/uL (0.00-0.02) Prothrombin Time 11.9 SECONDS (9.0-12.0) Prothromb Time International Ratio 1.1 (0.9-1.1) Anion Gap 8.0 mmol/L (3-11) Est Creatinine Clear Calc Drug Dose 50.2 ml/min Estimated GFR () 84.8 Estimated GFR (Non- 73.2 BUN/Creatinine Ratio 19.1 (10-20) Calcium Level 8.5 mg/dl (8.5-10.1) Total Bilirubin 0.5 mg/dl (0.2-1) Aspartate Amino Transf (AST/SGOT) 12 U/L (15-37) Alanine Aminotransferase (ALT/SGPT) 11 U/L (12-78) Alkaline Phosphatase 45 U/L (45-117) Total Protein 6.0 gm/dl (6.4-8.2) Albumin 2.9 gm/dl (3.4-5.0) Globulin 3.1 gm/dl (2.5-4.0) Albumin/Globulin Ratio 0.9 (0.9-2) Medical Emergencies . Who to Call and When: Medical Emergencies: If at any time you feel your situation is an emergency, please call 911 immediately. . Non-Emergent Contact Non-Emergency issues call your: Primary Care Provider . . "Provider Documentation" section prepared by Izaiah Milton. . VTE Core Measure Inpt VTE Proph given/why not?: Unfractionated heparin SQ
--- NOTE | 2017-07-23 15:26 | Discharge Summary ---
Discharge Summary Date of Service Jul 23, 2017. Discharge Summary Admission Date: Jul 21, 2017 at 19:10 Discharge Date: Jul 23, 2017 Discharge Disposition: Home Principal Diagnosis: hyponatremia, atrial fibrillation on Coumadin, pulmonary hypertension Procedures: transthoracic echo Consultations: nephrology, cardiology Medication Reconciliation Continued Medications: Albuterol Hfa (Ventolin Hfa) 200 Puffs/76125 Mcg Aers 2 PUFFS INH QID PRN for SOB/Wheezing, #18 Aspirin (Aspirin Ec) 325 Mg Tab 325 MG PO DAILY Atorvastatin (Lipitor) 20 Mg Tab 20 MG PO QPM, TAB Azithromycin (Zithromax) 250 Mg Tab 250 MG PO DIRECTED, #4 TAB COPD RESCUE KIT Calcium (Caltrate) 600 Mg Tab 600 MG PO QAM, TAB Cholecalciferol (Vitamin D3) 1,000 Unit Tab 2000 INTER.UNIT PO DAILY for 90 Days, TAB 3 Refills Docusate Sodium (Docusate Sodium) 100 Mg Cap 1 CAP PO BID PRN for Constipation for 30 Days, #60 CAP Fluticasone Prop/Salmeterol (Advair Diskus 250/50 60 Dose) 1 Ea Aerp 1 PUFF INH Q12H, INHALER Furosemide (Lasix) 20 Mg Tab 20 MG PO DAILY TAKE 20 MG DAILY, MAY TAKE UP TO 60 MG DAILY IF NEEDED Gabapentin (Neurontin) 300 Mg Cap 300 MG PO QPM, CAP Levothyroxine Sodium (Levothyroxine Sodium) 25 Mcg Tab 25 MCG PO DAILY, #90 Melatonin (Melatonin Maximum Strengt) 5 Mg Tab 1 TAB PO HS for 30 Days, #30 TAB Metoprolol Tartrate (Lopressor) 25 Mg Tab 25 MG PO BID, #60 Oxybutynin Chloride (Oxybutynin Chloride ER) 10 Mg Tabcr 10 MG PO DAILY, #90 Prednisone (Prednisone) 10 Mg Tab 10 MG PO DIRECTED, TAB COPD RESCUE KIT Warfarin Sod (Jantoven) 2.5 Mg Tab 2.5 MG PO DAILY, TAB Admission Information HPI (per Admitting provider): 82 year old female who was referred to the ED by outpatient cardiology for evaluation of hyperkalemia and hyponatremia that was found on outpatient labs. Yesterday during a routine clinic visit with her PCP, patient was found to be atrial fibrillation. Patient had an isolated episode of atrial fibrillation during a stress test last year however has had no further documented episodes. She was evaluated by cardiology today who obtained a routine chemistry panel that showed K+ 5.8 and Na+ 127. Patient reports she has been feeling well recently. She denies any chest pain, palpitations or shortness of breath. Over the past week she has noted an occasional cough productive for clear sputum. She denies lightheadedness, dizziness, diaphoresis, and syncopal events. No abdominal pain, nausea, vomiting, or diarrhea. She denies fever and chills. No urinary symptoms. She denies any weight gain or worsening lower extremity edema. She reports her appetite fluctuates between being good and fair. She denies any dramatic changes in her diet. She reports she drinks two cups of coffee in the morning and about one bottle of water per day. She has been taking all of her medicines as prescribed and denies needing to take any additional Lasix tabs. In the ED, patient's Na+ is 126 and K+ is normal at 4.6. Physical Exam (per Admitting): General Appearance: no apparent distress Head: normocephalic, atraumatic Eyes: normal inspection, sclerae normal ENT: + pertinent finding (CHILKOOT) Neck: supple, no JVD Respiratory/Chest: no respiratory distress, + decreased breath sounds Cardiovascular: normal peripheral pulses, + irregularly irregular (rate controlled), + pertinent finding (trace edema BLLE) Abdomen/GI: normal bowel sounds, non tender, soft Extremities/Musculoskelatal: normal inspection, no calf tenderness Neurologic/Psych: no motor/sensory deficits, alert, normal mood/affect, oriented x 3 Skin: normal color, warm/dry Hospital Course 82 yo F with history of COPD, atrial fibrillation and recently started on coumadin who was sent from clinic to hospital for evaluation of hyponatremia which was 126 on admission 07/21/17. Lasix was held and patient received IV fluids with normal saline and serum sodium improved to 129. Is clinically euvolemic but had elevated BNP. Because of cardiac history an echo was performed with normal ejection fraction and severe pulmonary hypertension with dilated atria and valvular regurgitation. Cardiology and Nephrology consulted as patient has above cardiac history and was on Lasix at home for diuresis with this hyponatremia. The consensus based on initial consultation with the specialists is to stop IV fluids, implement fluid restriction, restart Lasix. Subsequently stable serum soidum 129. Echo on this admission The left ventricular wall motion is normal. * The LV Ejection Fraction = 60-65%. * The left atrium is severely dilated. * The right atrium is mildly dilated. * There is mild mitral annular calcification. * There is moderate mitral regurgitation. * There is moderate to severe tricuspid regurgitation. * There is severe pulmonary hypertension. * The pulmonary artery systolic pressure is calculated to be 64 mm Hg. Dobutamine stress echocardiography 01/2016, at [facility] [place]: The stress echo is negative for inducible ischemia. Sustained atrial fibrillation was noted during stress and recovery. Patient asymptomatic. Resting Study: The qualitative LV ejection fraction is 60-64% (normal). The left atrium is moderately enlarged. The left ventricular diastolic function is mildly abnormal (grade I). Mild to moderate mitral regurgitation. Mild tricuspid regurgitation is present. The estimated pulmonary artery systolic pressure is 40mm Hg. HYPOTONIC HYPOVOLEMIC HYPONATREMIA - patient referred from outpatient cardiology office when she was found to be hyponatremic and hyperkalemic on outpatient labs; patient asymptomatic - K+ normal in the ED at 4.6, Na+ 126 - Lasix was held on admission and patient received IV fluids with normal saline and serum sodium improved to 129 - based on consultation with the cardiology and nephrology: stop IV fluids, implement fluid restriction, restart Lasix - monitor electrolytes, serum potassium stable at 129 -as per nephrology consult on 07/23/17: Currently on low dose Lasix 20 mg a day and currently recommending a 1500 mL fluid restriction. Ideally would lower the dose of Lasix from 20 mg a day to 20 mg every other day with concomitant fluid restriction to see if we can keep the sodium levels up while still optimizing the heart. However, if medically necessary to continue the Lasix, would do so in the setting of 1500 mL fluid restriction and follow labs as an outpatient. If sodium levels are stable at 129 to 130 today okay from the renal standpoint to be discharged with repeat BMP next week to follow sodium levels. ATRIAL FIBRILLATION -continue coumadin 2.5 mg daily, trend INR -beta lazara DIASTOLIC DYSFUNCTION, VALVULAR REGURGITATION, DILATED ATRIA, SEVERE PULMONARY HTN -restart Lasix HLD - continue statin HYPOTHYROIDISM - continue levothyroxine - TSH WNL DVT PROPHYLAXIS - SQ heparin until INR > 2.0 while inpatient CODE STATUS - Patient is a full code Disposition: discharge home with follow up to primary medical doctor for further followup of serum sodium and titration of diuresis [facility], Montrell S, MD [phone] on Thursday at 10:45 AM other discharge appointments: 07/24/2017 6:15 PM [facility] [place] 08/06/2017 2:15 PM Montrell Alarcon PA-C Cardiology, [facility] Total time spent on discharge = This includes examination of the patient, discharge planning, medication reconciliation, and communication with other providers. Discharge Instructions Disposition: discharge home with follow up to primary medical doctor for further followup of serum sodium and titration of diuresis [facility], Montrell Alvarez MD [phone] on Thursday at 10:45 AM other discharge appointments: 07/24/2017 6:15 PM [facility] [place] [facility] [place] 08/06/2017 2:15 PM Montrell Alarcon PA-C Cardiology, [facility] Please seek immediate medical attenion if patient develops confusion, shortness of breath, chest pain, vomiting
[2017-07-23 15:47] VITALS: BP 171/77; PULSE 95; TEMP 36.8; O2SAT 92
[2017-07-23 16:08] VITALS: BP 156/88
[2017-07-23] MEDS: WARFARIN SOD 2.5 MG TAB PO SCH (16:14)
== END 2017-07-23 17:03 | disposition home or self-care (01) | DRG 641 ==
LOC: C.EDB 16:21 → C.MED 19:10 → ENRESERV 19:20
PROVIDERS: ADMIT Hospitalist; ATTEND Hospitalist
DX: E87.1 Hypo-osmolality and hyponatremia (principal); I48.91 Unspecified atrial fibrillation; I12.9 Hypertensive chronic kidney disease with stage 1 through stage 4 chronic kidney disease, or unspecified chronic kidney disease; N18.3 Chronic kidney disease, stage 3 (moderate); E03.9 Hypothyroidism, unspecified; J44.9 Chronic obstructive pulmonary disease, unspecified; E78.5 Hyperlipidemia, unspecified; Z87.891 Personal history of nicotine dependence; Z79.82 Long term (current) use of aspirin; Z79.01 Long term (current) use of anticoagulants; Z80.9 Family history of malignant neoplasm, unspecified; Z83.3 Family history of diabetes mellitus

== ENCOUNTER → 2017-07-30 | Outpatient (CLI) | payer OTHER ==
[~2017-07-30] MED LIST changes: +ASPI325T39 PO; -ASPI81TA28 PO; -ATEN50TA8 PO; +AZIT250T PO; +LPR25 PO; +PRED10TA PO; -VSC/5 PO; +WARF2.5T8 PO
--- NOTE | 2017-07-30 12:29 | MAMMOGRAPHY REPORT ---
BILATERAL DIGITAL SCREENING MAMMOGRAM WITH CAD: 07/30/2017 TECHNIQUE: Current study was also evaluated with a Computer Aided Detection (CAD) system. Bilateral CC and MLO views were obtained. COMPARISON: Comparison is made to exams dated: 07/29/2016 mammogram, 07/25/2015 mammogram, 07/24/2014 m ammogram, 07/21/2013 mammogram, 07/01/2012 mammogram, and 06/30/2011 mammogram - [facility] enter. BREAST COMPOSITION: The tissue of both breasts is heterogeneously dense, which may obscure small mas ses. FINDINGS: No suspicious masses, calcifications, or areas of architectural distortion are noted in ei ther breast. There has been no significant interval change compared to prior exams. Scattered bilater al benign-appearing calcifications are not significantly changed. Focal asymmetry in the right upper outer quadrant is stable compared to multiple prior exams. Nodular asymmetry in the left superior p osterior breast on the MLO view is similar to prior exams including the 2007 and 2010 exams. IMPRESSION: ACR BI-RADS CATEGORY 2: BENIGN There is no mammographic evidence of malignancy. A 1 year screening mammogram is recommended. The pa tient will receive written notification of the results. Approximately 10% of breast cancers are not detected with mammography. A negative mammographic report should not delay biopsy if a clinically suggestive mass is present. Starla Harding M.D. /:07/30/2017 09:33:09 Rail Assembler: Aby VICENTE)([place]), [facility] letter sent: Normal 1/2 BI-RADS Code: ACR BI-RADS Category 2: Benign
== END | disposition home or self-care (01) ==
LOC: C.MAMM 08:49
PROVIDERS: ATTEND Family Medicine
DX: Z12.31 Encounter for screening mammogram for malignant neoplasm of breast (principal)

== ENCOUNTER → 2017-10-28 | Outpatient (CLI) | payer OTHER ==
[~2017-10-28] MED LIST changes: +ACET-1256 PO; +ASPI81TA28 PO; +CMD/25 PO; +FURO20TA PO; +LIDO16CR TOP; +LORA-741 PO; +METO100T14 PO; +WARF5TAB7 PO
[2017-10-28 09:15] LABS: INR 1.8 (0.9-1.1)
== END | disposition home or self-care (01) ==
LOC: C.LABSPEC 08:50
PROVIDERS: ATTEND Pharmacist Pharmacist Clinician (PhC)/ Clinical Pharmacy Specialist
DX: I48.91 Unspecified atrial fibrillation (principal)

== ENCOUNTER → 2017-11-11 | Outpatient (CLI) | payer OTHER ==
[~2017-11-11] MED LIST changes: -ACET-1256 PO; -ASPI81TA28 PO; -CMD/25 PO; -FURO20TA PO; -LIDO16CR TOP; -LORA-741 PO; -METO100T14 PO; -WARF5TAB7 PO
[2017-11-11 08:55] LABS: INR 1.5 (0.9-1.1)
--- NOTE | 2017-11-20 08:36 | CODING QUERY NO DIAGNOSIS ---
TREATMENT RENDERED WITHOUT A DIAGNOSIS : 1935 To promote full compliance with coding requirements relating to patient care, physician participation is requested in all cases of wine bottle inspector uncertainty. Please assist us with providing a diagnosis/symptom for the test(s) below: A diagnosis/symptom was not documented on your Order. A valid diagnosis/symptom is required to bill all insurances. Please remember that we are unable to code a diagnosis of rule out, probable, possible, questionable, or suspected. Tests that require a diagnosis: DOS: 11/11/17 * PROTHROMBIN TIME PRO DIAGNOSIS: Provider Signature: Date: Provider Name: Thank you Zayra Leroy [employer] Once completed, please kindly fax back to [phone] For questions please call [phone]
== END | disposition home or self-care (01) ==
LOC: C.LABSPEC 08:15
PROVIDERS: ATTEND Family Medicine
DX: I48.91 Unspecified atrial fibrillation (principal)

== ENCOUNTER → 2017-11-25 | Outpatient (CLI) | payer OTHER ==
[2017-11-25 10:25] LABS: INR 1.4 (0.9-1.1)
== END | disposition home or self-care (01) ==
LOC: C.LABSPEC 09:03
PROVIDERS: ATTEND Family Medicine
DX: I48.91 Unspecified atrial fibrillation (principal)

== ENCOUNTER → 2017-12-09 | Outpatient (CLI) | payer OTHER ==
[2017-12-09 08:49] LABS: INR 1.6 (0.9-1.1)
== END | disposition home or self-care (01) ==
LOC: C.LABSPEC 08:10
PROVIDERS: ATTEND Family Medicine
DX: I48.91 Unspecified atrial fibrillation (principal)

== ENCOUNTER → 2017-12-16 | Outpatient (CLI) | payer OTHER ==
[2017-12-16 10:37] LABS: INR 2.8 (0.9-1.1)
== END ==
LOC: C.LABSPEC 10:01
PROVIDERS: ATTEND Family Medicine
DX: I48.91 Unspecified atrial fibrillation (principal); Z79.01 Long term (current) use of anticoagulants

== ENCOUNTER → 2017-12-23 | Outpatient (CLI) | payer OTHER ==
[~2017-12-23] MED LIST changes: +ACET-1256 PO; +ASPI81TA28 PO; +CMD/25 PO; +FURO20TA PO; +LIDO16CR TOP; +LORA-741 PO; +METO100T14 PO; +WARF5TAB7 PO
[2017-12-23 08:37] LABS: INR 3.7 (0.9-1.1)
== END | disposition home or self-care (01) ==
LOC: C.LABSPEC 07:40
PROVIDERS: ATTEND Family Medicine
DX: I48.91 Unspecified atrial fibrillation (principal)

== ENCOUNTER → 2018-01-06 | Outpatient (CLI) | payer OTHER ==
[2018-01-06 09:26] LABS: INR 8.4 (0.9-1.1)
--- NOTE | 2018-01-21 06:59 | CODING QUERY MEDICAL NECESSITY ---
SUPPORTING DIAGNOSIS NEEDED A supporting diagnosis is required for the test/procedure performed on this patient in order for us to be reimbursed by the patient's insurance. Please provide a supporting diagnosis for the following test/procedure listed below next to the test name along with your signature. *If there is no additional diagnosis for this patient that would support the following test/procedure please document that below next to the test/procedure. Test(s)/Procedure(s) that require a supporting diagnosis: DOS: 01/06/18 * PT/INR DIAGNOSIS: Provider Signature: Date: Thank you Lauren [place] [employer] Once completed, please kindly fax back to [phone] For questions please call [phone]
== END | disposition home or self-care (01) ==
LOC: C.LABSPEC 08:36
PROVIDERS: ATTEND Family Medicine
DX: I48.91 Unspecified atrial fibrillation (principal)

== ENCOUNTER 2018-01-08 08:45 | Emergency (ER) | payer OTHER ==
[~2018-01-08] VITALS: Ht 162.6 cm; Wt 65.0 kg
[~2018-01-08 08:45] MED LIST changes: -ACET-1256 PO; -ASPI81TA28 PO; -CMD/25 PO; -FURO20TA PO; -LIDO16CR TOP; -LORA-741 PO; -METO100T14 PO; -WARF5TAB7 PO
[2018-01-08 08:53] VITALS: TEMP 37.4; Ht 162.6 cm; Wt 65.0 kg
[2018-01-08] MEDS ORDERED: SODIUM CHLORIDE 0.9% 500ML 500 ML IV STA (08:59)
--- NOTE | 2018-01-08 09:05 | EMERGENCY ROOM VISIT NOTE ---
History Report prepared by Martin: Triny Green Under the Supervision of: Dr. Billy Trujillo M.D. 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 As per nursing staff, she does not know why she is here and denies having any pain. She is from [facility]. When asked, she denies any wrist pain. She is accompanied by her niece who reports that she was "totally out of it" and was having a difficult time eating," so [facility] called her. She also notes she was also told her aunt has a high Coumadin level. 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 Review of Systems See HPI for pertinent positives & negatives. A total of 10 systems reviewed and were otherwise negative. Past Medical & Surgical Medical Problems: (1) Abnormal echocardiography (2) Atrial fibrillation (3) CKD (chronic kidney disease), stage III (4) COPD (chronic obstructive pulmonary disease) (5) HLD (hyperlipidemia) (6) HTN (hypertension) (7) Hypothyroidism (8) Osteoporosis (9) Vulvar cancer Surgical Problems: (1) H/O carotid endarterectomy (2) History of total right hip arthroplasty Family History Diabetes mellitus FH: cancer Social History Smoking Status: Former Smoker Housing Status: lives alone Current/Historical Medications Scheduled Aspirin (Aspirin Ec), 81 MG PO DAILY Atorvastatin (Lipitor), 20 MG PO QPM Azithromycin (Zithromax), 250 MG PO DIRECTED Cholecalciferol (Vitamin D3), 1,000 INTER.UNIT PO DAILY Fluticasone Prop/Salmeterol (Advair Diskus 250/50 60 Dose), 1 PUFF INH Q12H Furosemide (Lasix), 20 MG PO Q2D Gabapentin (Neurontin), 300 MG PO QPM Levothyroxine Sodium (Levothyroxine Sodium), 25 MCG PO DAILY Lorazepam (Ativan), 0.5 MG PO BID Melatonin (Melatonin Maximum Strengt), 5 MG PO HS Metoprolol Tartrate (Lopressor) (Lopressor), 100 MG PO BID Oxybutynin Chloride (Oxybutynin Chloride ER), 10 MG PO DAILY Prednisone (Prednisone), 10 MG PO DIRECTED Warfarin Sod (Jantoven), 5 MG PO DAILY Scheduled PRN Albuterol Hfa (Ventolin Hfa), 2 PUFFS INH QID PRN for SOB/Wheezing Allergies Coded Allergies: Oxycodone (Unverified Allergy, Unknown, DIZZY ITCHING, 01/08/18) Simvastatin (Unverified Allergy, Unknown, RASH, 01/08/18) Tramadol (Unverified Allergy, Unknown, DIZZY, 01/08/18) Physical Exam Vital Signs Date Time Temp Pulse Resp B/P (MAP) Pulse Ox O2 Delivery O2 Flow Rate FiO2 01/08/18 11:15 88 16 119/60 96 Room Air 01/08/18 10:33 87 16 133/66 94 Room Air 01/08/18 09:41 94 Room Air 01/08/18 09:41 94 Room Air 01/08/18 09:41 96 16 111/62 94 Room Air 84 121/69 92 118/70 01/08/18 09:10 85 01/08/18 08:53 37.4 86 16 97/60 94 Room Air Physical Exam GENERAL: Awake, alert, well-appearing, in no acute distress HENT: Normocephalic, atraumatic. Oropharynx unremarkable. EYES: Normal conjunctiva. Sclera non-icteric. NECK: Supple. No nuchal rigidity. FROM. No JVD. RESPIRATORY: Clear to auscultation. CARDIAC: Regular rate, normal rhythm. Extremities warm and well perfused. Pulses equal. ABDOMEN: Soft, non-distended. No tenderness to palpation. No rebound or guarding. No masses. RECTAL: Deferred. MUSCULOSKELETAL: Chest examination reveals no tenderness. The back is symmetrical on inspection without obvious abnormality. There is no CVA tenderness to palpation. No joint edema. LOWER EXTREMITIES: Calves are equal size bilaterally and non-tender. No edema. No discoloration. NEURO: Neurovascularly intact. SKIN: Contusion to the left wrist area. Good ROM, no pain, no tenderness. Medical Decision & Procedures ER Provider Diagnostic Interpretation: Radiology results as stated below per my review and radiologist interpretation: HEAD WITHOUT CONTRAST (CT) CT DOSE: 537.48 mGy.cm HISTORY: Mental status change. Confusion. Pt c/o AMS TECHNIQUE: Multiaxial CT images of the head were performed without the use of intravenous contrast. A dose lowering technique was utilized adhering to the principles of ALARA. Comparison: None. Findings: Moderate mucosal thickening visualized components of the right maxillary sinus.. Surgical placement of a right antral window. Opacified left mastoid air cells. Right mastoid is clear. The calvarium and skull base are intact. The ventricles and sulci are within normal limits. There is no mass, hematoma, midline shift, or acute infarct. Impression: 1. No acute intracranial abnormality. 2. Moderate mucosal thickening right maxillary sinus. 3. Opacified left mastoid air cells. SINGLE VIEW CHEST CLINICAL HISTORY: Change in mental status. Fall. FINDINGS: An AP, portable, upright chest radiograph is compared to study dated 07/21/2017. The examination is degraded by portable technique and patient rotation. The heart is enlarged and there is atherosclerotic calcification of the thoracic aorta. The pulmonary vasculature is noncongested. There are low lung volumes and bibasilar atelectasis. No airspace consolidation or large pleural effusion is identified. No pneumothorax is seen. The skeletal structures are osteopenic. Advanced arthritic change is seen in the shoulders and thoracic spine. IMPRESSION: 1. Cardiomegaly with no acute cardiopulmonary abnormality. 2. Low lung volumes with bibasilar atelectasis. Electronically signed by: Terrell You M.D. 01/08/2018 9:49 AM Dictated Date/Time: 01/08/2018 9:48 AM L WRIST MIN 3 VIEWS ROUTINE CLINICAL HISTORY: Pt c/o left wrist pain COMPARISON: None. DISCUSSION: Severe degenerative change of the intercarpal joints primarily at the base of the thumb and distal navicular. Mild soft tissue edema. No evidence for fracture or dislocation. IMPRESSION: Significant degenerative change primarily at the intercarpal and first carpometacarpal joint. No acute bony abnormality. Soft tissue edema. The above report was generated using voice recognition software. It may contain grammatical, syntax or spelling errors. Electronically signed by: Montrell De Dios M.D. 01/08/2018 9:54 AM Dictated Date/Time: 01/08/2018 9:50 AM Laboratory Results 01/08/18 08:55 Red Blood Count 4.16, Mean Corpuscular Volume 81.3, Mean Corpuscular Hemoglobin 26.4, Mean Corpuscular Hemoglobin Concent 32.5, Mean Platelet Volume 8.9, Neutrophils (%) (Auto) 81.7, Lymphocytes (%) (Auto) 9.4, Monocytes (%) (Auto) 7.9, Eosinophils (%) (Auto) 0.6, Basophils (%) (Auto) 0.1, Neutrophils # (Auto) 10.64, Lymphocytes # (Auto) 1.22, Monocytes # (Auto) 1.03, Eosinophils # (Auto) 0.08, Basophils # (Auto) 0.01 01/08/18 08:55 Test 01/08/18 08:55 01/08/18 09:12 01/08/18 10:10 01/08/18 10:15 White Blood Count 13.02 K/uL (4.8-10.8) Red Blood Count 4.16 M/uL (4.2-5.4) Hemoglobin 11.0 g/dL (12.0-16.0) Hematocrit 33.8 % (37-47) Mean Corpuscular Volume 81.3 fL (80-100) Mean Corpuscular Hemoglobin 26.4 pg (25-34) Mean Corpuscular Hemoglobin Concent 32.5 g/dl (32-36) Platelet Count 277 K/uL (130-400) Mean Platelet Volume 8.9 fL (7.4-10.4) Neutrophils (%) (Auto) 81.7 % Lymphocytes (%) (Auto) 9.4 % Monocytes (%) (Auto) 7.9 % Eosinophils (%) (Auto) 0.6 % Basophils (%) (Auto) 0.1 % Neutrophils # (Auto) 10.64 K/uL (1.4-6.5) Lymphocytes # (Auto) 1.22 K/uL (1.2-3.4) Monocytes # (Auto) 1.03 K/uL (0.11-0.59) Eosinophils # (Auto) 0.08 K/uL (0-0.5) Basophils # (Auto) 0.01 K/uL (0-0.2) RDW Standard Deviation 50.1 fL (36.4-46.3) RDW Coefficient of Variation 16.7 % (11.5-14.5) Immature Granulocyte % (Auto) 0.3 % Immature Granulocyte # (Auto) 0.04 K/uL (0.00-0.02) Prothrombin Time 45.2 SECONDS (9.0-12.0) Prothromb Time International Ratio 4.4 (0.9-1.1) Anion Gap 5.0 mmol/L (3-11) Est Creatinine Clear Calc Drug Dose 32.9 ml/min Estimated GFR () 53.4 Estimated GFR (Non- 46.1 BUN/Creatinine Ratio 16.5 (10-20) Calcium Level 8.6 mg/dl (8.5-10.1) Total Bilirubin 0.7 mg/dl (0.2-1) Direct Bilirubin 0.2 mg/dl (0-0.2) Aspartate Amino Transf (AST/SGOT) 14 U/L (15-37) Alanine Aminotransferase (ALT/SGPT) 16 U/L (12-78) Alkaline Phosphatase 60 U/L (45-117) Total Creatine Kinase 27 U/L (26-192) Creatine Kinase MB 1.0 ng/ml (0.5-3.6) Creatine Kinase MB Ratio 3.7 (0-3.0) Troponin I < 0.015 ng/ml (0-0.045) Total Protein 6.5 gm/dl (6.4-8.2) Albumin 2.7 gm/dl (3.4-5.0) Thyroid Stimulating Hormone (TSH) 2.600 uIu/ml (0.300-4.500) Bedside Glucose 115 mg/dl (70-90) Influenza Type A Antigen Neg for Influ A (NEG) Influenza Type B Antigen Neg for Influ B (NEG) Urine Color YELLOW Urine Appearance CLEAR (CLEAR) Urine pH 7.5 (4.5-7.5) Urine Specific [place] 1.013 (1.000-1.030) Urine Protein NEG (NEG) Urine Glucose (UA) NEG (NEG) Urine Ketones NEG (NEG) Urine Occult Blood NEG (NEG) Urine Nitrite NEG (NEG) Urine Bilirubin NEG (NEG) Urine Urobilinogen NEG (NEG) Urine Leukocyte Esterase NEG (NEG) Labs reviewed by ED physician. 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 The patient was evaluated in room B2. A complete history and physical examination was performed. 0859: Sodium Chloride 500 ml @ 999 mls/hr IV 1100: Upon reexamination the patient is agreeable. I discussed results and treatment plan with the patient. She verbalizes agreement and understanding. The patient is ready for discharge. Medical Decision Differential diagnosis: Etiologies such as metabolic, infection, hypo/hyperglycemia, electrolyte abnormalities, cardiac sources, intracerebral event, toxicologic, neurologic, as well as others were entertained. This is an 82-year-old female who was sent in from her group home over concerns of an altered mental status. Upon arrival to the emergency department the patient's niece is here who notes that the patient is at her baseline. The patient is complaining of a bruise to her left wrist. X-rays do not show any evidence of fracture. Patient also does not have any evidence of a UTI she was given a liter fluid here in the emergency department. Repeat examination revealed improvement in the patient's symptoms. I recommended the patient follow-up with her primary care physician. I do feel she is well enough to be discharged back. Patient and family were in agreement with the treatment plan. Medication Reconcilliation Current Medication List: was personally reviewed by me Blood Pressure Screening Patient's blood pressure: Low blood pressure Blood pressure disposition: Did not require urgent referral Impression Primary Impression: Dehydration Additional Impression: Supratherapeutic INR Scribe Attestation The scribe's documentation has been prepared under my direction and personally reviewed by me in its entirety. I confirm that the note above accurately reflects all work, treatment, procedures, and medical decision making performed by me. Departure Information Dispostion Home / Self-Care Referrals [facility] (PCP) Forms HOME CARE DOCUMENTATION FORM, IMPORTANT VISIT INFORMATION, WORK / SCHOOL INSTRUCTIONS Patient Instructions My [facility] Additional Instructions Hold Coumadin for two days Follow up with DR Atwood's office for continued wrist pain You have been examined and treated today on an emergency basis only. This is not a substitute for, or an effort to provide, complete comprehensive medical care. It is impossible to recognize and treat all injuries or illnesses in a single emergency department visit. It is therefore important that you follow up closely with your PCP. Call as soon as possible for an appointment. Thank you for your time and consideration. I look forward to speaking with you again soon. Please don't hesitate to call us if you have any questions. Problem Qualifiers
[2018-01-08 09:20] LABS: BASO % 0.1 %; BASO ABS # 0.01 K/uL (0-0.2); EOS % 0.6 %; EOS ABS # 0.08 K/uL (0-0.5); HEMATOCRIT 33.8 % (37-47); IG# 0.04 K/uL (0.00-0.02); LYMPH % 9.4 %; LYMPH ABS # 1.22 K/uL (1.2-3.4); MEAN CELL VOLUME 81.3 fL (80-100); MEAN CORPUSCULAR HEMOGLOBIN 26.4 pg (25-34); MEAN CORPUSCULAR HGB CONC 32.5 g/dl (32-36); MEAN PLATELET VOLUME 8.9 fL (7.4-10.4); MONO % 7.9 %; MONO ABS # 1.03 K/uL (0.11-0.59); NEUT % 81.7 %; NEUT ABS # 10.64 K/uL (1.4-6.5); PLATELET COUNT 277 K/uL (130-400); RED CELL DISTRIBUTION WIDTH CV 16.7 % (11.5-14.5); RED CELL DISTRIBUTION WIDTH SD 50.1 fL (36.4-46.3); WHITE BLOOD COUNT 13.02 K/uL (4.8-10.8)
[2018-01-08] MEDS ORDERED: METO100T14 PO (09:27)
[2018-01-08] MEDS ORDERED: LORA-741 PO (09:27)
[2018-01-08] MEDS ORDERED: ASPI81TA28 PO (09:27)
[2018-01-08] MEDS ORDERED: WARF5TAB7 PO (09:27)
--- NOTE | 2018-01-08 09:32 | DIAGNOSTIC IMAGING REPORT ---
HEAD WITHOUT CONTRAST (CT) CT DOSE: 537.48 mGy.cm HISTORY: Mental status change. Confusion. Pt c/o AMS TECHNIQUE: Multiaxial CT images of the head were performed without the use of intravenous contrast. A dose lowering technique was utilized adhering to the principles of ALARA. Comparison: None. Findings: Moderate mucosal thickening visualized components of the right maxillary sinus.. Surgical placement of a right antral window. Opacified left mastoid air cells. Right mastoid is clear. The calvarium and skull base are intact. The ventricles and sulci are within normal limits. There is no mass, hematoma, midline shift, or acute infarct. Impression: 1. No acute intracranial abnormality. 2. Moderate mucosal thickening right maxillary sinus. 3. Opacified left mastoid air cells. The above report was generated using voice recognition software. It may contain grammatical, syntax or spelling errors. Electronically signed by: Montrell De Dios M.D. 01/08/2018 9:31 AM Dictated Date/Time: 01/08/2018 9:29 AM
[2018-01-08 09:35] LABS: BLOOD UREA NITROGEN 18 mg/dl (7-18); GLUCOSE 103 mg/dl (70-99)
[2018-01-08 09:36] LABS: ALBUMIN 2.7 gm/dl (3.4-5.0); ALT/SGPT 16 U/L (12-78); CALCIUM 8.6 mg/dl (8.5-10.1); CARBON DIOXIDE 28 mmol/L (21-32); POTASSIUM 4.4 mmol/L (3.5-5.1); SODIUM 127 mmol/L (136-145)
[2018-01-08 09:41] VITALS: O2SAT 94
[2018-01-08 09:42] LABS: INR 4.4 (0.9-1.1)
[2018-01-08 09:46] LABS: ALKALINE PHOSPHATASE 60 U/L (45-117); AST/SGOT 14 U/L (15-37); TOTAL PROTEIN 6.5 gm/dl (6.4-8.2)
--- NOTE | 2018-01-08 09:50 | DIAGNOSTIC IMAGING REPORT ---
SINGLE VIEW CHEST CLINICAL HISTORY: Change in mental status. Fall. FINDINGS: An AP, portable, upright chest radiograph is compared to study dated 07/21/2017. The examination is degraded by portable technique and patient rotation. The heart is enlarged and there is atherosclerotic calcification of the thoracic aorta. The pulmonary vasculature is noncongested. There are low lung volumes and bibasilar atelectasis. No airspace consolidation or large pleural effusion is identified. No pneumothorax is seen. The skeletal structures are osteopenic. Advanced arthritic change is seen in the shoulders and thoracic spine. IMPRESSION: 1. Cardiomegaly with no acute cardiopulmonary abnormality. 2. Low lung volumes with bibasilar atelectasis. Electronically signed by: Terrell You M.D. 01/08/2018 9:49 AM Dictated Date/Time: 01/08/2018 9:48 AM
--- NOTE | 2018-01-08 09:55 | DIAGNOSTIC IMAGING REPORT ---
L WRIST MIN 3 VIEWS ROUTINE CLINICAL HISTORY: Pt c/o left wrist pain COMPARISON: None. DISCUSSION: Severe degenerative change of the intercarpal joints primarily at the base of the thumb and distal navicular. Mild soft tissue edema. No evidence for fracture or dislocation. IMPRESSION: Significant degenerative change primarily at the intercarpal and first carpometacarpal joint. No acute bony abnormality. Soft tissue edema. The above report was generated using voice recognition software. It may contain grammatical, syntax or spelling errors. Electronically signed by: Montrell De Dios M.D. 01/08/2018 9:54 AM Dictated Date/Time: 01/08/2018 9:50 AM
[2018-01-08 10:50] LABS: INFLUENZA B ANTIGEN Neg for Influ B (NEG)
[2018-01-08 11:15] VITALS: BP 119/60; PULSE 88; O2SAT 96
[2018-01-09] MEDS ORDERED: LIDO16CR TOP (05:57)
[2018-01-09] MEDS ORDERED: CMD/25 PO (05:58)
[2018-01-09] MEDS ORDERED: ACET-1256 PO (06:02)
[2018-01-09] MEDS ORDERED: FURO20TA PO (06:03)
== END 2018-01-08 11:27 | disposition home or self-care (01) ==
LOC: EDBD 08:45 → C.EDB 08:46
DX: E86.0 Dehydration (principal); R79.1 Abnormal coagulation profile; I48.91 Unspecified atrial fibrillation; N18.3 Chronic kidney disease, stage 3 (moderate); J44.9 Chronic obstructive pulmonary disease, unspecified; E78.5 Hyperlipidemia, unspecified; I12.9 Hypertensive chronic kidney disease with stage 1 through stage 4 chronic kidney disease, or unspecified chronic kidney disease; E03.9 Hypothyroidism, unspecified; M81.0 Age-related osteoporosis without current pathological fracture; Z85.44 Personal history of malignant neoplasm of other female genital organs; Z83.3 Family history of diabetes mellitus; Z80.9 Family history of malignant neoplasm, unspecified; Z87.891 Personal history of nicotine dependence; Z79.82 Long term (current) use of aspirin; Z79.01 Long term (current) use of anticoagulants; Z79.899 Other long term (current) drug therapy; Z88.5 Allergy status to narcotic agent; Z88.8 Allergy status to other drugs, medicaments and biological substances
CPT/HCPCS: 29125; P9612

== ENCOUNTER 2018-01-09 03:53 | Emergency (ER) | payer OTHER ==
[~2018-01-09] VITALS: Ht 165.1 cm; Wt 67.9 kg
[2018-01-09 03:53] VITALS: Ht 165.1 cm; Wt 67.9 kg
[~2018-01-09 03:53] MED LIST changes: +ASPI81TA28 PO; +LORA-741 PO; +METO100T14 PO; +WARF5TAB7 PO
--- NOTE | 2018-01-09 04:11 | EMERGENCY ROOM VISIT NOTE ---
History Report prepared by Martin: Amandeep Beyer Under the Supervision of: Dr. Theo Jones M.D. First contact with patient: 03:59 Chief Complaint: FALL Stated Complaint: FALL History of Present Illness The patient is a 82 year old female who presents to the Emergency Room with complaints of head injury s/p mechanical fall that began 2 hours ago. Per EMS, the nursing staff had seen the patient at midnight and stated that the patient was fine. They state that her fall must have occurred between midnight and 0200. The patient states that she was going to get up out of bed and change her watch, but missed a chair and struck the back of her head on the corner of a night stand. Rather than call for help, she grabbed a pillow and slept on the ground. Of note, the patient's blood thinner were stopped yesterday because her INR was 4.5. The patient was admitted yesterday for altered mental status felt to be due to dehydration. She denies hip pain, leg pain, bruising on her buttocks, SOB, and double vision. Source of History: patient, EMS, nursing staff Onset: 2 hours ago Position: head Quality: other (bleeding laceration) Timing: constant Associated Symptoms: No SOB Note: Patient denies hip pain, leg pain, bruising on her buttocks, and double vision. Review of Systems See HPI for pertinent positives & negatives. A total of 10 systems reviewed and were otherwise negative. Past Medical & Surgical Medical Problems: (1) Abnormal echocardiography (2) Atrial fibrillation (3) CKD (chronic kidney disease), stage III (4) COPD (chronic obstructive pulmonary disease) (5) HLD (hyperlipidemia) (6) HTN (hypertension) (7) Hypothyroidism (8) Osteoporosis (9) Vulvar cancer Surgical Problems: (1) H/O carotid endarterectomy (2) History of cataract surgery (3) History of total right hip arthroplasty Family History Diabetes mellitus FH: cancer Social History Smoking Status: Never Smoker Housing Status: lives alone Current/Historical Medications Scheduled Aspirin (Aspirin Ec), 81 MG PO DAILY Atorvastatin (Lipitor), 20 MG PO QPM Cholecalciferol (Vitamin D3), 1,000 INTER.UNIT PO DAILY Fluticasone Prop/Salmeterol (Advair Diskus 250/50 60 Dose), 1 PUFF INH Q12H Furosemide (Lasix), 20 MG PO Q2D Gabapentin (Neurontin), 300 MG PO QPM Levothyroxine Sodium (Levothyroxine Sodium), 25 MCG PO DAILY Melatonin (Melatonin Maximum Strengt), 5 MG PO HS Metoprolol Tartrate (Lopressor) (Lopressor), 100 MG PO BID Oxybutynin Chloride (Oxybutynin Chloride ER), 10 MG PO DAILY Warfarin Sod (Jantoven), 5 MG PO DAILY Warfarin Sod (Coumadin), 2.5 MG PO 2XWK Scheduled PRN Acetaminophen (Tylenol), 1,000 MG PO Q6 PRN for Pain or Fever Albuterol Hfa (Ventolin Hfa), 2 PUFFS INH QID PRN for SOB/Wheezing Azithromycin (Zithromax), 250 MG PO DIRECTED PRN for copd rescue kit Furosemide (Lasix), 20 MG PO DAILY PRN for wt gain >3 lb in 24 hours Lidocaine (Aspercreme W/Lidocaine), 1 APPLN TOP TID PRN for Pain Lorazepam (Ativan), 0.5 MG PO BID PRN for Anxiety/Agitation Prednisone (Prednisone), 10 MG PO DIRECTED PRN for copd rescue kit Allergies Coded Allergies: Oxycodone (Unverified Allergy, Unknown, DIZZY ITCHING, 01/09/18) Simvastatin (Unverified Allergy, Unknown, RASH, 01/09/18) Tramadol (Unverified Allergy, Unknown, DIZZY, 01/09/18) Physical Exam Vital Signs Date Time Temp Pulse Resp B/P (MAP) Pulse Ox O2 Delivery O2 Flow Rate FiO2 01/09/18 06:35 37.1 103 17 118/65 92 01/09/18 05:54 103 118/65 92 Room Air 01/09/18 03:53 37.1 117 17 140/78 93 Room Air Physical Exam GENERAL: Patient is elderly appearing and in no acute distress. EYES: No scleral icterus, unremarkable pupils. HENT: Large hematoma of right posterior scalp with overlying 2.5 cm laceration that is actively bleeding. Mucous membranes moist, no nasal congestion. NECK: No masses appreciated, no meningismus, trachea is midline. RESPIRATORY: No dyspnea. Clear to auscultation and equal bilaterally. No wheeze , no rhonchi. CARDIOVASCULAR: Regular rate and rhythm. No murmurs, rubs, gallops appreciated. GASTROINTESTINAL: Abdomen soft, nontender, no peritonitis. Bowel sounds positive. No masses appreciated. BACK: No midline tenderness, no CVA tenderness EXTREMITIES: Normal motion all extremities, no cyanosis, no edema. NEUROLOGIC: Hard of hearing, otherwise normal. Alert and oriented, no acute motor or sensory deficits, no focal weakness, cranial nerves grossly intact. SKIN: Bruising over left wrist with wrist brace in place. No rash, no jaundice, no diaphoresis. Medical Decision & Procedures ER Provider Diagnostic Interpretation: [facility] Radiologist Read: Images and Reads Reviewed by Me: CT HEAD: Comparison is made to prior CT head on 01/08/2018. No acute intracranial abnormality identified. New right posterior scalp hematoma and laceration with interval placement of skin ford. No skull fracture. Bilateral lens implants. Fluid opacification of the left mastoid air cells. This is stable compared to prior exam. Stable mucosal thickening in the hypoplastic right maxillary sinus with similar hyperostosis of the sinus post. Atherosclerotic calcifications of the intracranial vasculature. Radiologist: Alejandra Green M.D. CT C SPINE: No acute traumatic abnormality identified. Multilevel degenerative changes of the cervical spine. Emphysematous changes in the lung apices. Atherosclerotic ossifications in the carotid arteries. Radiologist: Alejandra Green M.D. Procedure Location: right posterior scalp Total length: 2cm Complexity: simple Verbal consent was obtained after the risks and benefits were explained, including but not limited to bleeding, scarring, infection, pain, and bone/joint /nerve damage. At this time, the risks of the procedure are less than the risks of NOT performing the procedure. A time out was taken and the correct patient and site identified. The skin was prepped with betadine. Copious irrigation was performed using saline and betadine. The skin was re-prepped with Betadine. The wound was explored for foreign bodies and none found. There was a large hematoma underneath laceration with continuous venous bleeding. Examination revealed no injury to deep structures such as tendons, bone, or significant blood vessels. Debridement was not performed. The wound edges were approximated using 10 ford. Hemaderm applied to area, abd over, and then compression with devang wrap. Hemostasis achieved. Wound care instructions and signs and symptoms of infection reviewed with the patient's daughter. No complications and the patient tolerated the procedure well. ED Course 0359: The patient was evaluated in room B7. A complete history and physical exam was performed. 0414: I placed 7 ford on the back of the patient's scalp laceration She continues to bleed. 0422: I checked on the patient and she is bleeding through her dressing. 0530: I wrapped the patient's laceration with a compression dressing. 0600: Reevaluated the patient. Discussed results and discharge instructions: She verbalized understanding and agreement. The patient is ready for discharge. Medical Decision 82 yr old female arrives for evaluation of posterior scalp laceration. She tripped and fell getting object off night stand this morning. Large hematoma over posterior scalp with 2 cm laceration which is bleeding quite a bit consistent with her INR that was 4.4 earlier in the evening. After second attempt able to control bleeding with ford, hemostatic agent and compression (compression held until CT negative). CT head/cervical negative fortunately. Patient neuro intact. Daughter agrees she is at her baseline. She is happy and in no distress. Monitored for several hours without any issues. Given cessation of bleeding I feel that reversal INR not indicated at this time. Given she has close monitoring at senior living I feel she does not require obs here for head injury while on INR. She has no evidence of other fractures/ injuries on full examination. She has no TTP of abdomen, no respiratory issues and she is quite comfortable. I have advised she have follow up with PCP in next few days for repeat evaluation, and given labs earlier today repeat some of these per PCP. [place] out in 10 days. Discussed compression if further bleeding, etc. Reviewed at length symptoms requiring RTED and risks of delayed bleeding in patient on coumadin with head injury. Head Trauma GCS Score: 15 Medication Reconcilliation Current Medication List: was personally reviewed by me Blood Pressure Screening Patient's blood pressure: Normal blood pressure Blood pressure disposition: Did not require urgent referral Impression Primary Impression: Fall Additional Impressions: Occipital scalp laceration Traumatic hematoma of scalp Supratherapeutic INR Head injury, closed Scribe Attestation The scribe's documentation has been prepared under my direction and personally reviewed by me in its entirety. I confirm that the note above accurately reflects all work, treatment, procedures, and medical decision making performed by me. Departure Information Dispostion Home / Self-Care Referrals Tommy Gallego,Stef (PCP) Patient Instructions My [facility] Additional Instructions [place] will need to be removed in 10 days. Leave Dressing in place for the next 12-24 hours. The gently remove. Expect some bleeding to occur. The area can be gently washed with soap and water. Monitor for evidence of infection and return if fevers, swelling, drainage, redness or other concerning symptoms develop. Post head injury it is important to keep well hydrated and eat well. Avoid further falls/injury thus it may be necessary to use Wheel Chair the next few days. Follow up with Primary Provider in a few days for recheck. Call 911 if altered mental status, stroke like symptoms, seizures, difficulty breathing or other concerns. Bandage can be adjusted if it becomes uncomfortable. Problem Qualifiers
[2018-01-09] MEDS ORDERED: LIDO16CR TOP (05:57)
[2018-01-09] MEDS ORDERED: CMD/25 PO (05:58)
--- NOTE | 2018-01-09 05:59 | DIAGNOSTIC IMAGING REPORT ---
HEAD WITHOUT CONTRAST (CT) CLINICAL HISTORY: 82 years-old Female with posterior head injury on coumadin. Acute posterior head injury TECHNIQUE: Multiple axial CT images of the head were obtained without contrast. A dose lowering technique was utilized adhering to the principles of ALARA. CT DOSE: 1048.15 mGy.cm COMPARISON: CT head 01/08/2018. FINDINGS: No acute intracranial hemorrhage, midline shift, intracranial mass, hydrocephalus, territorial ischemia or abnormal extra-axial collection. Mild atrophy. Ill-defined areas of low-attenuation within the subcortical and periventricular white matter suggests chronic microvascular ischemic changes. Cerebral vascular calcifications are seen at the level of the skull base. The calvarium is intact. Large left mastoid effusion with mastoid air cells completely opacified. Note is also noted within the left middle ear cavity. Marked bony wall thickening of the right maxillary sinus with right maxillary volume loss. Mucosal thickening of the right maxillary sinus is noted along with mild right frontal and bilateral ethmoid sinus disease. Posterior right parietal scalp hematoma measures 4.1 x 0.7 cm with overlying skin ford and foci of subcutaneous emphysema compatible with laceration. No opaque foreign body. IMPRESSION: 1. No acute intracranial abnormality or calvarial fracture. 2. 4.1 cm right posterior parietal scalp hematoma with laceration and skin ford. No opaque foreign body. The above report was generated using voice recognition software. It may contain grammatical, syntax or spelling errors. Electronically signed by: Nikolay Jaramillo M.D. 01/09/2018 5:58 AM Dictated Date/Time: 01/09/2018 5:54 AM
[2018-01-09] MEDS ORDERED: ACET-1256 PO (06:02)
[2018-01-09] MEDS ORDERED: FURO20TA PO (06:03)
[2018-01-09 06:35] VITALS: BP 118/65; PULSE 103; TEMP 37.1; O2SAT 92
--- NOTE | 2018-01-09 06:53 | DIAGNOSTIC IMAGING REPORT ---
CERVICAL SPINE W/O CLINICAL HISTORY: 82 years-old Female with posterior head injury on coumadin. Acute head injury status post fall COMPARISON: CT head of same day. TECHNIQUE: Multiple axial CT images of the cervical spine were obtained without contrast. A dose lowering technique was utilized adhering to the principles of ALARA. FINDINGS: The bones appear moderately demineralized. No acute fracture or subluxation is identified. Large left mastoid effusion with fluid also noted within the left middle ear cavity. Right mastoid air cells are clear. Multilevel intervertebral disc space narrowing, moderate to severe at C3-C4 through C6-C7. Multilevel moderate endplate spurring with moderate to severe left-sided facet arthrosis at C2-C3 and C3-C4. Multilevel moderate facet arthropathy. 2 mm anterolisthesis C3 on C4 is likely secondary to long-standing facet disease. No definite high-grade central canal narrowing identified. There is severe left-sided foraminal stenosis at C3-C4 and severe right foraminal narrowing at C4-C5 and severe bilateral foraminal narrowing at C5-C6. Emphysematous changes of the imaged lung apices. 4 mm pleural-based solid nodule of the apical posterior segment left upper lobe. Atherosclerosis of the carotid bulbs, right greater than left. IMPRESSION: 1. No acute cervical spine fracture identified. 2. 2 mm anterolisthesis C3 on C4 is likely secondary to long-standing facet arthrosis. There is multilevel intervertebral disc space narrowing, endplate spurring and facet arthropathy as above. 3. Emphysema with 4 mm pleural-based solid nodule of the apical posterior segment left upper lobe. 4. Large left mastoid effusion with fluid also seen within the left middle ear cavity. Correlate clinically to exclude otomastoiditis. The above report was generated using voice recognition software. It may contain grammatical, syntax or spelling errors. Electronically signed by: Nikolay Jaramillo M.D. 01/09/2018 6:51 AM Dictated Date/Time: 01/09/2018 6:45 AM
== END 2018-01-09 06:36 | disposition home or self-care (01) ==
LOC: EDBD 03:53 → C.EDB 03:55
DX: S01.01XA Laceration without foreign body of scalp, initial encounter (principal); R79.1 Abnormal coagulation profile; W06.XXXA Fall from bed, initial encounter; W22.09XA Striking against other stationary object, initial encounter; I48.91 Unspecified atrial fibrillation; I12.9 Hypertensive chronic kidney disease with stage 1 through stage 4 chronic kidney disease, or unspecified chronic kidney disease; N18.3 Chronic kidney disease, stage 3 (moderate); J44.9 Chronic obstructive pulmonary disease, unspecified; E78.5 Hyperlipidemia, unspecified; E03.9 Hypothyroidism, unspecified; M81.0 Age-related osteoporosis without current pathological fracture; Z85.44 Personal history of malignant neoplasm of other female genital organs; Z96.641 Presence of right artificial hip joint; Z98.49 Cataract extraction status, unspecified eye; Z98.890 Other specified postprocedural states; Z83.3 Family history of diabetes mellitus; Z79.01 Long term (current) use of anticoagulants; Z79.82 Long term (current) use of aspirin; Z79.899 Other long term (current) drug therapy

== ENCOUNTER → 2018-01-13 | Outpatient (CLI) | payer OTHER ==
[~2018-01-13] MED LIST changes: +ACET-1256 PO; -ASPI325T39 PO; -CALCTAB5 PO; +CMD/25 PO; -DOCU100C31 PO; +FURO20TA PO; +LIDO16CR TOP; -LPR25 PO; -WARF2.5T8 PO
[2018-01-13 10:45] LABS: INR 1.3 (0.9-1.1)
== END | disposition home or self-care (01) ==
LOC: C.LABSPEC 10:14
PROVIDERS: ATTEND Family Medicine
DX: I48.91 Unspecified atrial fibrillation (principal)

== ENCOUNTER 2018-01-19 11:54 | Emergency (ER) | payer OTHER ==
[2018-01-19 11:57] VITALS: BP 124/80; PULSE 80; TEMP 36.5; O2SAT 94; Ht 165.1 cm
--- NOTE | 2018-01-19 12:44 | EMERGENCY ROOM VISIT NOTE ---
History First contact with patient: 12:04 Chief Complaint: SUTURE/STAPLE REMOVAL Stated Complaint: REMOVE FORD Nursing Triage Summary: patient fell 10 days ago here to have ford removed. she refused to have hair washed. very large matted area of dry blood on the scalp. History of Present Illness The patient is a 82 year old female who presents to the Emergency Room with her daughter for staple removal from a scalp laceration that was repaired in our department 11 days ago. The patient denies any other symptoms, headache or neck pain. Review of Systems Noncontributory Past Medical/Surgical History Medical Problems: (1) Abnormal echocardiography (2) Atrial fibrillation (3) CKD (chronic kidney disease), stage III (4) COPD (chronic obstructive pulmonary disease) (5) HLD (hyperlipidemia) (6) HTN (hypertension) (7) Hypothyroidism (8) Osteoporosis (9) Vulvar cancer Surgical Problems: (1) H/O carotid endarterectomy (2) History of cataract surgery (3) History of total right hip arthroplasty Family History Diabetes mellitus FH: cancer Social History Smoking Status: Former Smoker Housing Status: lives alone Current/Historical Medications Scheduled Aspirin (Aspirin Ec), 81 MG PO DAILY Atorvastatin (Lipitor), 20 MG PO QPM Cholecalciferol (Vitamin D3), 1,000 INTER.UNIT PO DAILY Fluticasone Prop/Salmeterol (Advair Diskus 250/50 60 Dose), 1 PUFF INH Q12H Furosemide (Lasix), 20 MG PO Q2D Gabapentin (Neurontin), 300 MG PO QPM Levothyroxine Sodium (Levothyroxine Sodium), 25 MCG PO DAILY Melatonin (Melatonin Maximum Strengt), 5 MG PO HS Metoprolol Tartrate (Lopressor) (Lopressor), 100 MG PO BID Oxybutynin Chloride (Oxybutynin Chloride ER), 10 MG PO DAILY Warfarin Sod (Jantoven), 5 MG PO DAILY Warfarin Sod (Coumadin), 2.5 MG PO 2XWK Scheduled PRN Acetaminophen (Tylenol), 1,000 MG PO Q6 PRN for Pain or Fever Albuterol Hfa (Ventolin Hfa), 2 PUFFS INH QID PRN for SOB/Wheezing Azithromycin (Zithromax), 250 MG PO DIRECTED PRN for copd rescue kit Furosemide (Lasix), 20 MG PO DAILY PRN for wt gain >3 lb in 24 hours Lidocaine (Aspercreme W/Lidocaine), 1 APPLN TOP TID PRN for Pain Lorazepam (Ativan), 0.5 MG PO BID PRN for Anxiety/Agitation Prednisone (Prednisone), 10 MG PO DIRECTED PRN for copd rescue kit Physical Exam Vital Signs Date Time Temp Pulse Resp B/P (MAP) Pulse Ox O2 Delivery O2 Flow Rate FiO2 01/19/18 11:57 36.5 80 18 124/80 94 Room Air Physical Exam HEENT: Examination of the occiput shows a heavily crusted scab. After nursing staff was able to clean all dried blood off of the wound, there is no underlying erythema, fluctuance or drainage. All ford were removed without any complications or diastases. Medical Decision & Procedures ED Course Additional verbal wound care instructions were provided to the patient and daughter. Medical Decision Impression Primary Impression: Encounter for removal of ford Additional Impression: Occipital scalp laceration Departure Information Referrals Montrell Gloria M.D. (PCP) Patient Instructions [facility] Problem Qualifiers Additional Impression: Occipital scalp laceration Encounter type: subsequent encounter Qualified Codes: S01.01XD - Laceration without foreign body of scalp, subsequent encounter
== END 2018-01-19 12:49 | disposition home or self-care (01) ==
LOC: C.EDB 11:56 → C.EDD 12:49
DX: S01.01XD Laceration without foreign body of scalp, subsequent encounter (principal); X58.XXXD Exposure to other specified factors, subsequent encounter; I48.91 Unspecified atrial fibrillation; I12.9 Hypertensive chronic kidney disease with stage 1 through stage 4 chronic kidney disease, or unspecified chronic kidney disease; N18.3 Chronic kidney disease, stage 3 (moderate); J44.9 Chronic obstructive pulmonary disease, unspecified; E78.5 Hyperlipidemia, unspecified; E03.9 Hypothyroidism, unspecified; M81.0 Age-related osteoporosis without current pathological fracture; Z85.44 Personal history of malignant neoplasm of other female genital organs; Z96.641 Presence of right artificial hip joint; Z87.891 Personal history of nicotine dependence; Z79.82 Long term (current) use of aspirin; Z79.01 Long term (current) use of anticoagulants; Z83.3 Family history of diabetes mellitus

== ENCOUNTER → 2018-01-20 | Outpatient (CLI) | payer OTHER ==
[2018-01-20 09:34] LABS: INR 2.3 (0.9-1.1)
== END | disposition home or self-care (01) ==
LOC: C.LABSPEC 08:56
PROVIDERS: ATTEND Family Medicine
DX: I48.91 Unspecified atrial fibrillation (principal)

== ENCOUNTER → 2018-01-27 | Outpatient (CLI) | payer OTHER ==
[2018-01-27 10:30] LABS: INR 3.8 (0.9-1.1)
== END | disposition home or self-care (01) ==
LOC: C.LABSPEC 09:55
PROVIDERS: ATTEND Family Medicine
DX: I48.91 Unspecified atrial fibrillation (principal)

== ENCOUNTER → 2018-02-03 | Outpatient (CLI) | payer OTHER | END | disposition home or self-care (01) | LOC: C.LABSPEC 09:37 | PROVIDERS: ATTEND Family Medicine | DX: I48.91 Unspecified atrial fibrillation (principal) ==

== ENCOUNTER → 2018-02-24 | Outpatient (CLI) | payer OTHER ==
[2018-02-24 09:51] LABS: BLOOD UREA NITROGEN 26 mg/dl (7-18); CARBON DIOXIDE 28 mmol/L (21-32); GLUCOSE 72 mg/dl (70-99); POTASSIUM 4.6 mmol/L (3.5-5.1); SODIUM 132 mmol/L (136-145)
== END | disposition home or self-care (01) ==
LOC: C.LABSPEC 08:57
PROVIDERS: ATTEND Family Medicine
DX: I48.91 Unspecified atrial fibrillation (principal); E55.9 Vitamin D deficiency, unspecified; I10 Essential (primary) hypertension

== ENCOUNTER → 2018-03-03 | Outpatient (CLI) | payer OTHER ==
[2018-03-03 09:44] LABS: INR 2.2 (0.9-1.1)
== END | disposition home or self-care (01) ==
LOC: C.LABSPEC 08:32
PROVIDERS: ATTEND Family Medicine
DX: I48.91 Unspecified atrial fibrillation (principal)

== ENCOUNTER → 2018-03-17 | Outpatient (CLI) | payer OTHER ==
[2018-03-17 09:30] LABS: INR 2.7 (0.9-1.1)
== END | disposition home or self-care (01) ==
LOC: C.LABSPEC 08:50
PROVIDERS: ATTEND Family Medicine
DX: I48.91 Unspecified atrial fibrillation (principal)

== ENCOUNTER → 2018-05-26 | Outpatient (CLI) | payer OTHER ==
[2018-05-26 09:05] LABS: INR 4.9 (0.9-1.1)
== END | disposition home or self-care (01) ==
LOC: C.LABSPEC 08:34
PROVIDERS: ATTEND Family Medicine
DX: Z01.89 Encounter for other specified special examinations (principal)

== ENCOUNTER → 2018-06-09 | Outpatient (CLI) | payer OTHER ==
[2018-06-09 10:16] LABS: INR 3.7 (0.9-1.1)
== END | disposition home or self-care (01) ==
LOC: C.LABSPEC 08:37
PROVIDERS: ATTEND Family Medicine
DX: I48.91 Unspecified atrial fibrillation (principal)

== ENCOUNTER → 2018-06-23 | Outpatient (CLI) | payer OTHER ==
[2018-06-23 08:40] LABS: INR 2.6 (0.9-1.1)
== END | disposition home or self-care (01) ==
LOC: C.LABSPEC 08:06
PROVIDERS: ATTEND Family Medicine
DX: I48.91 Unspecified atrial fibrillation (principal); Z79.01 Long term (current) use of anticoagulants

== ENCOUNTER 2018-12-25 00:12 | Inpatient (IN) ==
[2018-12-25 00:40] LABS: Basophils # (auto) 0.01 K/uL (0-0.2); Basophils % (auto) 0.1 %; Eosinophils # (auto) 0.24 K/uL (0-0.5); Eosinophils % (auto) 3.4 %; Hematocrit (blood only) 37.1 % (37-47); Immature Granulocytes # (auto) 0.01 K/uL (0.00-0.02); Immature Granulocytes % (auto) 0.1 %; Lymphocytes # (auto) 1.14 K/uL (1.2-3.4); Lymphocytes % (auto) 16.1 %; Mean Corpuscular Hgb Conc 32.3 g/dL (32-36); Mean Corpuscular Volume 101.4 fL (80-100); Mean Platelet Volume 10.1 fL (7.4-10.4); Monocytes # (auto) 0.53 K/uL (0.11-0.59); Monocytes % (auto) 7.5 %; Neutrophils # (auto) 5.16 K/uL (1.4-6.5); Neutrophils % (auto) 72.8 %; Platelet Count 175 K/uL (130-400); RDW Coefficient of Variation 14.9 % (11.5-14.5); Red Blood Count 3.66 M/uL (4.2-5.4); White Blood Count 7.09 K/uL (4.8-10.8)
[2018-12-25 00:57] LABS: Alanine Aminotransferase 27 U/L (12-78); Albumin Level 3.6 gm/dl (3.4-5.0); Aspartate Aminotransferase 29 U/L (15-37); BUN Creatinine Ratio 20.4 (10-20); Blood Urea Nitrogen 19 mg/dl (7-18); Calcium 8.7 mg/dl (8.5-10.1); Carbon Dioxide 26 mmol/L (21-32); Chloride 103 mmol/L (98-107); Creatinine Clr Calc Pharmacy 39.4 ml/min; Est GFR (African American) 64.1; Est GFR (Non-African American) 55.3; Glucose 120 mg/dl (70-99); Potassium 4.8 mmol/L (3.5-5.1); Sodium 135 mmol/L (136-145)
[2018-12-25 00:59] LABS: INR 3.5 (0.9-1.1); Partial Thromboplastin Ratio 1.4; Prothrombin Time 32.6 Seconds (9.0-12.0)
[2018-12-25 01:02] LABS: Alkaline Phosphatase 72 U/L (45-117); Globulin 3.7 gm/dl (2.5-4.0); Total Protein 7.3 gm/dl (6.4-8.2); Troponin I < 0.015 ng/ml (0-0.045)
[2018-12-25 01:24] LABS: Influenza A virus by PCR Neg for Influ A (Neg); Influenza B virus by PCR Neg for Influ B (Neg)
[2018-12-25] MEDS ORDERED: DEXAMETHASONE **PF** INJ 10 MG/ML VIAL IV ONE (01:24)
[2018-12-25] MEDS ORDERED: FUROSEMIDE 40 MG/4 ML VIAL IV STA (01:24)
[2018-12-25] MEDS ORDERED: ALBUT/IPRATROP 3MG/0.5MG NEB 3 ML VIAL NEB STA (01:24)
--- NOTE | 2018-12-25 02:38 | Emergency Department Note ---
Entered by Miriam Booker acting as a scribe for History of Present Illness General Chief complaint: Shortness of Breath/Dyspnea Time Seen by Provider: 12/25/18 00:14 Source: patient History of Present Illness Onset (ago): hour(s) (today) Location: chest Pain Consistency: + other (worsening) Quality: + other (shortness of breath) Associated symptoms: + other (positive runny nose; negative pain); no cough and no fever/chills The patient is a 83 year old female who presents to the Emergency Room with complaints of worsening shortness of breath that began today. The patient denies cough, fever, and pain. The patient states that she has had runny nose today. The patient states that she does not use her oxygen at home. The patient' s history and physical are limited secondary to hearing. Home Medications Home Medications Medication Instructions Recorded Confirmed Type acetaminophen [Tylenol Extra 1,000 mg PO AMPM 07/11/18 12/25/18 History Strength] acetaminophen [Tylenol Extra 1,000 mg PO BID PRN MDD 3000 07/11/18 12/25/18 History Strength] GRAM/24 HOURS albuterol sulfate [Ventolin HFA] 2 puff INHALATION QID PRN 07/11/18 12/25/18 History aspirin 81 mg PO DAILY 07/11/18 12/25/18 History atorvastatin 20 mg PO DAILY 07/11/18 12/25/18 History cholecalciferol (vitamin D3) 1,000 unit PO DAILY 07/11/18 12/25/18 History fluticasone-salmeterol [Advair 1 inh INHALATION Q12H 07/11/18 12/25/18 History Diskus] food supplemt, lactose-reduced 1 btl PO BID 07/11/18 12/25/18 History [Ensure] gabapentin 300 mg PO HS 07/11/18 12/25/18 History levothyroxine 25 mcg PO DAILYBB 07/11/18 12/25/18 History melatonin 5 mg PO HS 07/11/18 12/25/18 History metoprolol tartrate 100 mg PO BID 07/11/18 12/25/18 History prednisone 10 mg PO DIRECTED PRN 07/11/18 12/25/18 History propylene glycol [Systane Balance] 1 drp OPB BID 07/11/18 12/25/18 History carbamide peroxide [Debrox] 5 - 10 drp OTIC (EAR) DAILY PRN 12/25/18 12/25/18 History furosemide [Lasix] 20 mg PO DAILY PRN 12/25/18 12/25/18 History lidocaine HCl [Aspercreme 1 applic TOPICAL TID PRN 12/25/18 12/25/18 History (lidocaine)] warfarin 2.5 mg PO 6XWK 12/25/18 12/25/18 History warfarin 5 mg PO WK 12/25/18 12/25/18 History Allergies Allergy/AdvReac Type Severity Reaction Status Date / Time oxycodone Allergy Intermediate DIZZY Verified 12/25/18 01:04 ITCHING tramadol Allergy Intermediate DIZZY Verified 12/25/18 01:04 simvastatin Allergy Mild RASH Verified 12/25/18 01:04 Past Med/Surg History Family History Other No pertinent family history Social History marital status: / Current Living Situation: Jail Current Living Situation Comment: [facility] Feels Safe at Home: Yes Smoking Status: Current every day smoker Hx Alcohol Use: No Hx Substance Use: No Beliefs That Will Affect Care: None Preferred Language: Lithuanian Communication Ability: Impaired Visual Impairment: Limited Hearing Ability: Hard of Hearing Review of Systems The patient's history and physical are limited secondary to hearing. Physical Exam Vital Signs Vital Signs - 24 hr 12/25/18 00:17 12/25/18 00:20 12/25/18 00:22 Temperature 36.4 C L Temperature Source Oral Sepsis Recent Fever Within 48 Hours No Sepsis Action Taken by Nursing No Action Required Pulse Rate 93 H 100 H 97 H Pulse Rate from SpO2 Sensor 94 H 95 H Respiratory Rate 21 20 16 Respiratory Effort / Characteristics Non-Labored Spontaneous Respiratory Depth Normal Respiratory Pattern Regular Blood Pressure 172/115 H 156/85 H Blood Pressure Mean 134 108 Pulse Oximetry 99 92 99 Oxygen Delivery Method Room Air Oxygen Flow Rate 12/25/18 00:30 12/25/18 00:31 12/25/18 00:33 Temperature Temperature Source Sepsis Recent Fever Within 48 Hours Sepsis Action Taken by Nursing Pulse Rate 91 H Pulse Rate from SpO2 Sensor 96 H Respiratory Rate 18 19 Respiratory Effort / Characteristics Non-Labored Spontaneous Respiratory Depth Normal Respiratory Pattern Regular Blood Pressure Blood Pressure Mean Pulse Oximetry 100 99 Oxygen Delivery Method Nasal Cannula Nasal Cannula Oxygen Flow Rate 3 12/25/18 01:00 12/25/18 01:29 12/25/18 01:30 Temperature Temperature Source Sepsis Recent Fever Within 48 Hours Sepsis Action Taken by Nursing Pulse Rate 103 H 89 97 H Pulse Rate from SpO2 Sensor 102 H 90 97 H Respiratory Rate 26 H 15 14 Respiratory Effort / Characteristics Respiratory Depth Respiratory Pattern Blood Pressure 168/91 H Blood Pressure Mean 116 Pulse Oximetry 98 99 99 Oxygen Delivery Method Oxygen Flow Rate 12/25/18 02:04 Temperature Temperature Source Sepsis Recent Fever Within 48 Hours Sepsis Action Taken by Nursing Pulse Rate Pulse Rate from SpO2 Sensor Respiratory Rate Respiratory Effort / Characteristics Respiratory Depth Respiratory Pattern Blood Pressure Blood Pressure Mean Pulse Oximetry 87 L Oxygen Delivery Method Room Air Oxygen Flow Rate GENERAL: Awake, alert, well-appearing, in no distress. Extremely hard of hearing. HENT: Normocephalic, atraumatic. Oropharynx unremarkable. EYES: Normal conjunctiva. Sclera non-icteric. NECK: Supple. No nuchal rigidity. RESPIRATORY: Coarse lung sounds, diminished bases. Normal respiratory effort. CARDIAC: Normal rate. Normal rhythm. Extremities warm and well perfused. GI: Soft, non-distended. No tenderness to palpation. No rebound or guarding. RECTAL: Deferred. MUSCULOSKELETAL: Atraumatic. Chest examination reveals no tenderness. LOWER EXTREMITIES: Calves are equal size bilaterally and non-tender. Trace bilateral pedal edema. NEURO: Normal sensorium. No sensory or motor deficits noted. No facial droop. SKIN: Warm and dry. No rash or jaundice noted. Course 0020: Past medical records reviewed. The patient was evaluated in room C9, and a complete history and physical examination were performed. 0212: I discussed the case with the patient's facility, and they state that the patient does not wear oxygen at home. 0241: I discussed the case with Dr. Maria Del Rosario Mondragon who will further evaluate the patient. Consultations Consultation #1: I discussed the case with Dr. Maria Del Rosario Mondragon who will further evaluate the patient. Time: 02:41 Administered Medications Discontinued Medications Albuterol (Duoneb) 3 ml NEB NOW STA Stop: 12/25/18 01:25 Last Admin: 12/25/18 01:29 Dose: 3 ml Dexamethasone Sodium Phosphate (Decadron Pf) 5 mg IV NOW ONE Stop: 12/25/18 01:25 Last Admin: 12/25/18 01:29 Dose: 5 mg Furosemide (Lasix) 40 mg IV NOW STA Stop: 12/25/18 01:25 Last Admin: 12/25/18 01:29 Dose: 40 mg Medical Decision Making Differential Diagnosis Differential diagnosis: Etiologies such as infections, reactive airway disease, COPD, pneumonia, pleural effusion, pulmonary edema, ARDS, pneumothorax, CHF, cardiac ischemia, cardiac tamponade, dysrhythmia, anemia, pulmonary embolism, musculoskeletal, gastrointestinal process, as well as others were entertained. Medical Records Attestation: I reviewed the patient's medical records. Home Medications Current Medication List: was personally reviewed by me Laboratory Data Attestation: I reviewed the patient's lab results. Result diagrams: 12/25/18 00:29 12/25/18 00:29 Lab Results 12/25/18 12/25/18 12/25/18 Range/Units 00:24 00:29 00:29 WBC 7.09 (4.8-10.8) K/uL RBC 3.66 L (4.2-5.4) M/uL Hgb 12.0 (12.0-16.0) g/dL Hct 37.1 (37-47) % MCV 101.4 H (80-100) fL MCH 32.8 (25-34) pg MCHC 32.3 (32-36) g/dL RDW Std Deviation 55.0 H (36.4-46.3) fL RDW Coeff of Tru 14.9 H (11.5-14.5) % Plt Count 175 (130-400) K/uL MPV 10.1 (7.4-10.4) fL Immature Gran % (Auto) 0.1 % Neut % (Auto) 72.8 % Lymph % (Auto) 16.1 % Steele % (Auto) 7.5 % Eos % (Auto) 3.4 % Baso % (Auto) 0.1 % Immature Gran # (Auto) 0.01 (0.00-0.02) K/uL Neut # (Auto) 5.16 (1.4-6.5) K/uL Lymph # (Auto) 1.14 L (1.2-3.4) K/uL Steele # (Auto) 0.53 (0.11-0.59) K/uL Eos # (Auto) 0.24 (0-0.5) K/uL Baso # (Auto) 0.01 (0-0.2) K/uL PT 32.6 H (9.0-12.0) Seconds INR 3.5 H (0.9-1.1) APTT 39.0 H (21.0-31.0) Seconds PTT Ratio 1.4 Sodium (136-145) mmol/L Potassium (3.5-5.1) mmol/L Chloride (98-107) mmol/L Carbon Dioxide (21-32) mmol/L Anion Gap (3-11) BUN (7-18) mg/dl Creatinine (0.6-1.2) mg/dl Est Cr Clr Drug Dosing ml/min Est GFR ( Amer) Est GFR (Non-Af Amer) BUN/Creatinine Ratio (10-20) Glucose (70-99) mg/dl Calcium (8.5-10.1) mg/dl Total Bilirubin (0.2-1) mg/dl AST (15-37) U/L ALT (12-78) U/L Alkaline Phosphatase (45-117) U/L Troponin I (0-0.045) ng/ml Total Protein (6.4-8.2) gm/dl Albumin (3.4-5.0) gm/dl Globulin (2.5-4.0) gm/dl Albumin/Globulin Ratio (0.9-2) Influenza Type A (PCR) Neg for Influ A (Neg) Influenza Type B (PCR) Neg for Influ B (Neg) 12/25/18 Range/Units 00:29 WBC (4.8-10.8) K/uL RBC (4.2-5.4) M/uL Hgb (12.0-16.0) g/dL Hct (37-47) % MCV (80-100) fL MCH (25-34) pg MCHC (32-36) g/dL RDW Std Deviation (36.4-46.3) fL RDW Coeff of Tru (11.5-14.5) % Plt Count (130-400) K/uL MPV (7.4-10.4) fL Immature Gran % (Auto) % Neut % (Auto) % Lymph % (Auto) % Steele % (Auto) % Eos % (Auto) % Baso % (Auto) % Immature Gran # (Auto) (0.00-0.02) K/uL Neut # (Auto) (1.4-6.5) K/uL Lymph # (Auto) (1.2-3.4) K/uL Steele # (Auto) (0.11-0.59) K/uL Eos # (Auto) (0-0.5) K/uL Baso # (Auto) (0-0.2) K/uL PT (9.0-12.0) Seconds INR (0.9-1.1) APTT (21.0-31.0) Seconds PTT Ratio Sodium 135 L (136-145) mmol/L Potassium 4.8 (3.5-5.1) mmol/L Chloride 103 (98-107) mmol/L Carbon Dioxide 26 (21-32) mmol/L Anion Gap 6.0 (3-11) BUN 19 H (7-18) mg/dl Creatinine 0.94 (0.6-1.2) mg/dl Est Cr Clr Drug Dosing 39.4 ml/min Est GFR ( Amer) 64.1 Est GFR (Non-Af Amer) 55.3 BUN/Creatinine Ratio 20.4 H (10-20) Glucose 120 H (70-99) mg/dl Calcium 8.7 (8.5-10.1) mg/dl Total Bilirubin 1.0 (0.2-1) mg/dl AST 29 (15-37) U/L ALT 27 (12-78) U/L Alkaline Phosphatase 72 (45-117) U/L Troponin I < 0.015 (0-0.045) ng/ml Total Protein 7.3 (6.4-8.2) gm/dl Albumin 3.6 (3.4-5.0) gm/dl Globulin 3.7 (2.5-4.0) gm/dl Albumin/Globulin Ratio 1.0 (0.9-2) Influenza Type A (PCR) (Neg) Influenza Type B (PCR) (Neg) Imaging Data Attestation: I personally reviewed and interpreted this imaging study as follows : My Impression: CHEST X-RAY: Evidence of bilateral small pleural effusions. Slight CHF. Edema. No acute bony injuries. No pneumothorax. ECG Data Attestation: I personally reviewed and interpreted this ECG as follows: Indication: SOB/dyspnea Rate (beats per minute): 100 Rhythm: atrial fibrillation Findings: + other (normal axis ); no ST depression and no ST elevation Blood Pressure Blood Pressure Findings: Elevated blood pressure Blood Pressure Disposition: further management by hospitalist FERNANDO Narrative Patient is an 83-year-old female presenting today complaining of some shortness of breath. Endorses some URI symptoms. Denies significant pain. EKG and troponin were completed and reassuring and I doubt this is acute TX or ACS. Rate controlled A. fib. X-ray obtained to evaluate for possible pneumonia or fluid overload or pneumothorax. This was negative. Flu testing was sent along with basic laboratory studies. INR elevated 3.5. Patient was 92% on room air and is on anticoagulation lowering my suspicion for PE. Does have orders for oxygen at her personal care facility but not normally using it. Feel that she could use this for comfort. Does have a history of COPD. Some slight wheeze. No significant leukocytosis is noted. Kidney function appears at baseline without significant electrolyte abnormality. Chest x-ray does show some evidence of increased pulmonary vasculature and effusions concern for slight fluid overload. Given additional dose of diuretic here with some effect. Particular with any positioning or movement she does become hypoxic. Discussed with the personal fdc and she is not on oxygen her order on oxygen there. Given this will discussed with the hospital observation overnight for improvement of her respiratory status and diuresis. Impression & Plan Pulmonary edema, SOB (shortness of breath), Hypoxia Discharge Plan Visit Data Chief Complaint: Shortness of Breath/Dyspnea ED Provider: Noel Spicer Discharge Problem: Pulmonary edema, SOB (shortness of breath), Hypoxia Patient Disposition: Being Evaluated by Hospitalist Forms Stand Alone Forms: My [facility] [employer] Prescriptions Prescriptions: No Action fluticasone-salmeterol [Advair Diskus] 250-50 mcg/dose Blister With Device 1 inh INHALATION Q12H RF: 0 prednisone 10 mg Tablet 10 mg PO DIRECTED PRN (Reason: RESCUE KIT) RF: 0 atorvastatin 20 mg Tablet 20 mg PO DAILY RF: 0 metoprolol tartrate 100 mg Tablet 100 mg PO BID RF: 0 aspirin 81 mg Tablet,Delayed Release (Dr/Ec) 81 mg PO DAILY RF: 0 acetaminophen [Tylenol Extra Strength] 500 mg Tablet 1,000 mg PO AMPM RF: 0 acetaminophen [Tylenol Extra Strength] 500 mg Tablet 1,000 mg PO BID MDD 3000 GRAM/24 HOURS PRN (Reason: Fever Or Pain) RF: 0 levothyroxine 25 mcg Tablet 25 mcg PO DAILYBB RF: 0 gabapentin 300 mg Capsule 300 mg PO HS RF: 0 albuterol sulfate [Ventolin HFA] 90 mcg/actuation Hfa Aerosol Inhaler 2 puff INHALATION QID PRN (Reason: Shortness Of Breath) RF: 0 cholecalciferol (vitamin D3) 1,000 unit Capsule 1,000 unit PO DAILY RF: 0 food supplemt, lactose-reduced [Ensure] Liquid 1 btl PO BID RF: 0 melatonin 5 mg Tablet 5 mg PO HS RF: 0 propylene glycol [Systane Balance] 0.6 % Drops 1 drp OPB BID RF: 0 furosemide [Lasix] 40 mg Tablet 20 mg PO DAILY PRN (Reason: >5 LB WT GAIN) RF: 0 warfarin 2.5 mg Tablet 2.5 mg PO 6XWK RF: 0 warfarin 5 mg Tablet 5 mg PO WK RF: 0 carbamide peroxide [Debrox] 6.5 % Drops 5 - 10 drp OTIC (EAR) DAILY PRN (Reason: WAX BUILD UP) RF: 0 lidocaine HCl [Aspercreme (lidocaine)] 4 % Cream 1 applic TOPICAL TID PRN (Reason: Pain) RF: 0 [facility]errals [facility] - The scribe's documentation has been prepared under my direction and personally reviewed by me in its entirety. I confirm that the note above accurately reflects all work, treatment, procedures, and medical decision making performed by me.
--- NOTE | 2018-12-25 04:41 | History and Physical Report ---
DATE OF ADMISSION: 12/25/2018 CHIEF COMPLAINT: Shortness of breath. HISTORY OF PRESENT ILLNESS: This is an 83-year-old female with past medical history significant for COPD; hypothyroidism; hyperlipidemia; chronic atrial fibrillation, Coumadin was stopped because of her fall risk, but seems to be restarted again; chronic kidney disease stage III; carotid stenosis; renal hypertension; urge incontinence; Alzheimer dementia, who lives at [facility]. She was brought in because of shortness of breath. The patient is very hard to hear. Have to write on a paper and she can understand, she answers back appropriately. She states after supper she felt short of breath and she was also having cough with some whitish phlegm. Denies any fever, chills. No chest pain, no nausea, no vomiting, no abdominal pain, no headaches. Appetite is okay. Sleeps okay. Mostly wheelchair bound. Sometimes can walk with a walker. Normal bowel and bladder movements. No blood in the stools, no black stools. No burning micturition. The patient received nebs and Lasix in the ER and right now she is feeling better, hemodynamically stable. Initially was saturating only 82% on room air. She has oxygen at her personal halfway to use it as needed, but mostly does not use it. ALLERGIES: OXYCODONE, ACETAMINOPHEN, SIMVASTATIN, TRAMADOL. PAST MEDICAL HISTORY: As mentioned above. PAST SURGICAL HISTORY: Resection of the vulvar lesion, left carotid endarterectomy. MEDICATIONS: The patient is on Tylenol 1000 mg b.i.d., Lasix 20 mg p.o. daily, vitamin D 2000 units p.o. daily, levothyroxine 25 mcg p.o. daily, Advair Diskus 250/50 mcg 1 puff b.i.d., Lipitor 20 mg p.o. daily, lidocaine 4% cream as directed, Ensure 1 bottle b.i.d. propylene glycol 0.6% ophthalmic solution 1 drop into both eyes b.i.d., albuterol 2 puffs every 4 hours p.r.n., Lopressor 100 mg p.o. b.i.d., aspirin enteric coated 81 mg p.o. daily, melatonin 5 mg p.o. at bedtime. FAMILY HISTORY: Significant for brother had lung cancer, sister has breast cancer, grandmother paternal has diabetes. SOCIAL HISTORY: , currently living at [facility]. Quit smoking in 1996, smoked average 1 pack a day for 44 years. Alcohol, occasional beer. No drug use. REVIEW OF SYSTEMS: As per HPI. Rest of review of systems negative. PHYSICAL EXAMINATION: GENERAL: The patient is old and frail, not in acute distress, very hard to hear. VITAL SIGNS: Temperature 36.4, pulse 97, respiratory rate 14, blood pressure 168/91, and oxygen 87% room air. HEENT: No pallor, no icterus. Pupils equal, round, and reactive to light. NECK: No JVD, no neck masses, no carotid bruit. CARDIOVASCULAR: S1, S2 heard, regular rate and rhythm, no murmur, no gallop. RESPIRATORY SYSTEM: Normal AP diameter. No accessory muscle use. Mild bibasilar crackles. No wheezing. ABDOMEN: Soft, bowel sounds present. Nontender. No distention. CENTRAL NERVOUS SYSTEM: Cranial nerves II-XII grossly intact. Nonfocal. EXTREMITIES: Bilateral lower extremity, pedal edema +1 present, no erythema seen. LABORATORIES: WBC 7, hemoglobin 12, hematocrit 37.1, platelets 175. PT 32.6, INR 3.5, APTT 39. Sodium 135, potassium 4.8, chloride 103, bicarbonate 26, BUN 19, creatinine 0.9, serum glucose 120, calcium 8.7, total bilirubin 1, AST 29, ALT 27, alkaline phosphatase 102, troponin I less than 0.015. Influenza A and B PCR negative. IMAGING DATA: Chest x-ray, mild pulmonary congestion, mild bilateral pleural effusion seen. EKG: Atrial fibrillation with rate of 100, no acute ST changes seen. ASSESSMENT AND PLAN: This 83-year-old female presents with shortness of breath. 1. Shortness of breath, most likely [id number] diastolic congestive heart failure. Received IV Lasix in the ER. We will place on IV Lasix 20 b.i.d. Daily weights, I's and O's. Follow echocardiogram. Consult cardiology in a.m. for adjustment of her medications. 2. History of chronic obstructive pulmonary disease. Patient is supposed to use oxygen as needed, but not using. May need two step prior to discharge. Continue home inhalers and nebs p.r.n. seems stable 3. History of atrial fibrillation, rate under control, on Lopressor. back on Coumadin. INR is 3.5. We will follow the PT/INR. 4. History of hyperlipidemia, on statin. 5. History of hypertension, on Lopressor. We will monitor the blood pressure. 6. History of hypothyroidism, on Synthroid. 7. History of dementia. Will monitor for delirium. 8. Deep venous thrombosis prophylaxis. INR therapeutic. DISPOSITION: Admit to med/surg tele. Code status, level 1 full code. Social service to help with discharge planning. PT and OT prior to discharge. MTDD
[2018-12-25] MEDS ORDERED: XOPENEX/ATROVENT 1.25mg/0.5MG NEB COMBO NEB PRN (04:53)
[2018-12-25] MEDS ORDERED: POLYETHYLENE (MIRALAX) 17 GM PACK PO PRN (04:53)
[2018-12-25] MEDS ORDERED: ALBUTEROL HFA 8 GM INHALER INH PRN (04:53)
[2018-12-25] MEDS ORDERED: ACETAMINOPHEN 325 MG TAB PO PRN (04:53)
[2018-12-25] MEDS ORDERED: IPRATROPIUM BROMIDE NEB SOLN 0.02% 2.5 ML VIAL INH PRN (04:53)
[2018-12-25] MEDS ORDERED: NITROGLYCERIN SL 0.4 MG/TAB TAB SL PRN (04:53)
[2018-12-25] MEDS ORDERED: ONDANSETRON INJ 2 MG/ML 2 ML VIAL IV PRN (04:53)
[2018-12-25] MEDS ORDERED: TROLAMINE SALICYLATE 10% CRM 255 APPLN/85 GM TUBE EXT PRN (04:53)
[2018-12-25] MEDS ORDERED: LEVALBUTEROL 1.25MG/0.5ML NEB INH PRN (04:53)
[2018-12-25] MEDS: LEVOTHYROXINE SODIUM 25 MCG TABLET PO SCH (06:18)
--- NOTE | 2018-12-25 06:23 | XRay Report ---
XR chest 1V portable HISTORY: 83 years-old Female Dyspnea acute shortness of breath COMPARISON: Chest radiograph 07/19/2018, CT left shoulder 08/05/2018 TECHNIQUE: Portable AP view of the chest FINDINGS: Cardiac silhouette is enlarged, unchanged. Calcification of the thoracic aortic arch. No pneumothorax . Small pleural effusions are noted with pulmonary vascular congestion and mild interstitial coarseni ng. Moderate diaphragmatic elevation with bibasilar opacities. Degenerative changes of the shoulders and spine. Advanced osteoarthritis of the shoulders with fragmented subacute to chronic appearing fra cture about the proximal left humerus, partially imaged. IMPRESSION: 1. Cardiomegaly with mild pulmonary edema. 2. Small bilateral pleural effusions with bibasilar consolidation. The above report was generated using voice recognition software. It may contain grammatical, syntax o r spelling errors. Electronically signed by: Nikolay Jaramillo M.D. 12/25/2018 6:22 AM
[2018-12-25 08:03] LABS: Prothrombin Time 37.1 Seconds (9.0-12.0)
[2018-12-25] MEDS: METOPROLOL TARTRATE 100 MG TAB PO SCH ×2 (08:17→20:13)
[2018-12-25] MEDS: ASPIRIN 81 MG ECTAB PO SCH (08:17)
[2018-12-25] MEDS: ATORVASTATIN 20 MG TAB PO SCH (08:17)
[2018-12-25] MEDS: CHOLECALCIFEROL 1,000 UNITS TAB PO SCH (08:17)
[2018-12-25] MEDS: FLUTICASONE/SALMETEROL 250/50 (ADVAIR) 14 PUFF/1 INHALER INH SCH ×2 (08:18→20:12)
[2018-12-25] MEDS: FUROSEMIDE 20 MG in SYRINGE 0 ML IV SCH ×2 (08:18→16:58)
[2018-12-25] MEDS: ACETAMINOPHEN 500 MG TAB PO SCH ×2 (08:18→20:12)
[2018-12-25] MEDS ORDERED: HEPARIN SOD 5,000 UNIT/0.5 ML VIAL SQ SCH (09:00)
[2018-12-25] MEDS ORDERED: PROPYLENE GLYCOL OPB SCH (09:00)
[2018-12-25] MEDS ORDERED: FOOD SUPPLEMT LACTOSE REDUCED PO SCH (09:00)
[2018-12-25] MEDS ORDERED: FUROSEMIDE 40 MG/4 ML VIAL IV SCH (09:00)
--- NOTE | 2018-12-25 11:17 | Ultrasound Report ---
US effusion-chest/mediastinum HISTORY: 83 years-old Female pleural effusion acute shortness of breath with pleural effusions COMPARISON: Chest radiograph of same day TECHNIQUE: Multiple real-time sonographic images of the chest were obtained assessing grayscale appea carlos. FINDINGS: Right pleural effusion is noted, approximately 200 mL. Left pleural effusion is noted, proximal 78 mL . Bibasilar consolidation. IMPRESSION: Small right greater than left pleural effusions The above report was generated using voice recognition software. It may contain grammatical, syntax o r spelling errors. Electronically signed by: Nikolay Jaramillo M.D. 12/25/2018 11:15 AM
--- NOTE | 2018-12-25 14:34 | Cardiology Consultation ---
Date of Consultation December 25, 2018 Assessment & Plan (1) Acute on chronic heart failure with preserved ejection fraction: Chest x-ray performed this admission reveals small right greater than left pleural effusions, the pleural effusion on the right is certainly improved compared to the prior film from July 2018. She is already had an ultrasound of the mediastinum this admission revealing small bilateral pleural effusions right greater than left, they do not appear to be significant to warrant thoracentesis. Agree with furosemide 20 mg IV 2 times per day for now. Will need to proceed with caution, as she does have a history of hypovolemic hyponatremia. (2) Permanent atrial fibrillation: Currently she is rate controlled in the 80s, EKG revealed atrial fibrillation the range of 100 bpm earlier today. Continue aspirin 81 mg daily. All of the time for cardiology consult back in July and her most recent follow-up visit in November, it describe that she was off of anticoagulation due to fall risk, it appears she is back on Coumadin now. Her admitting INR was 3.5 and today the INR was 4 and therefore it is being held. Continue metoprolol for rate control. History of Present Illness Attending Physician: Jaimee Tesfaye MD History of Present Illness Lucero Jay is an 83 year old female seen in cardiology consultation per the request of Dr Cruz for evaluation of congestive heart failure.She has a history of dementia and lives in a personal [place] [facility]. She had been hospitalized in July 2018 with a mechanical fall and left humerus fracture that was treated conservatively without surgery. CXR during that admission revealed a large right and small left pleural effusion. PAST MEDICAL HISTORY: 1. Very hard of hearing even with hearing aids. 2. Chronic atrial fibrillation. 3. Alzheimer's disease. 4. History of mechanical falls. 5. History of hypovolemic hyponatremia. 6. Carotid stenosis. 7. Hypertension. 8. Hyperlipidemia. 9. COPD. 10. Stage III chronic kidney disease. 11. Hypotension. 12. Osteoarthritis. 13. Osteoporosis. Allergies Allergy/AdvReac Type Severity Reaction Status Date / Time oxycodone Allergy Intermediate DIZZY Verified 12/25/18 01:04 ITCHING tramadol Allergy Intermediate DIZZY Verified 12/25/18 01:04 simvastatin Allergy Mild RASH Verified 12/25/18 01:04 Home Medications Home Medications Medication Instructions Recorded Confirmed Type acetaminophen [Tylenol Extra 1,000 mg PO AMPM 07/11/18 12/25/18 History Strength] acetaminophen [Tylenol Extra 1,000 mg PO BID PRN MDD 3000 07/11/18 12/25/18 History Strength] GRAM/24 HOURS albuterol sulfate [Ventolin HFA] 2 puff INHALATION QID PRN 07/11/18 12/25/18 History aspirin 81 mg PO DAILY 07/11/18 12/25/18 History atorvastatin 20 mg PO DAILY 07/11/18 12/25/18 History cholecalciferol (vitamin D3) 1,000 unit PO DAILY 07/11/18 12/25/18 History fluticasone-salmeterol [Advair 1 inh INHALATION Q12H 07/11/18 12/25/18 History Diskus] food supplemt, lactose-reduced 1 btl PO BID 07/11/18 12/25/18 History [Ensure] gabapentin 300 mg PO HS 07/11/18 12/25/18 History levothyroxine 25 mcg PO DAILYBB 07/11/18 12/25/18 History melatonin 5 mg PO HS 07/11/18 12/25/18 History metoprolol tartrate 100 mg PO BID 07/11/18 12/25/18 History prednisone 10 mg PO DIRECTED PRN 07/11/18 12/25/18 History propylene glycol [Systane Balance] 1 drp OPB BID 07/11/18 12/25/18 History carbamide peroxide [Debrox] 5 - 10 drp OTIC (EAR) DAILY PRN 12/25/18 12/25/18 History furosemide [Lasix] 20 mg PO DAILY PRN 12/25/18 12/25/18 History lidocaine HCl [Aspercreme 1 applic TOPICAL TID PRN 12/25/18 12/25/18 History (lidocaine)] warfarin 2.5 mg PO [id number] 12/25/18 12/25/18 History warfarin 5 mg PO WK 12/25/18 12/25/18 History Patient History Family History Other No pertinent family history Social History marital status: / Current Living Situation: Personal Care Facility Current Living Situation Comment: [facility] Other Information That Helps Us Care for You: No Feels Safe at Home: Yes Smoking Status: Former smoker Hx Alcohol Use: No Hx Substance Use: No Beliefs That Will Affect Care: None Communication Ability: Impaired Physical Exam 2 Vital Signs (Past 24 Hours): Last Vital Signs Temp 36.7 C 12/25/18 12:04 Pulse 83 12/25/18 13:00 Resp 16 12/25/18 12:04 BP 136/77 12/25/18 12:04 Pulse Ox 98 12/25/18 12:04 Results & Data Laboratory Results Cardiac Enzymes 12/25/18 12/25/18 12/25/18 Range/Units 00:29 07:05 12:59 AST 29 (15-37) U/L Troponin I < 0.015 < 0.015 < 0.015 (0-0.045) ng/ml Coagulation 12/25/18 12/25/18 Range/Units 00:29 07:05 PT 32.6 H 37.1 H (9.0-12.0) Seconds APTT 39.0 H (21.0-31.0) Seconds CBC 12/25/18 Range/Units 00:29 WBC 7.09 (4.8-10.8) K/uL RBC 3.66 L (4.2-5.4) M/uL Hgb 12.0 (12.0-16.0) g/dL Hct 37.1 (37-47) % Plt Count 175 (130-400) K/uL Neut # (Auto) 5.16 (1.4-6.5) K/uL Lymph # (Auto) 1.14 L (1.2-3.4) K/uL [place] # (Auto) 0.53 (0.11-0.59) K/uL Eos # (Auto) 0.24 (0-0.5) K/uL Baso # (Auto) 0.01 (0-0.2) K/uL Comprehensive Metabolic Panel 12/25/18 Range/Units 00:29 Sodium 135 L (136-145) mmol/L Potassium 4.8 (3.5-5.1) mmol/L Chloride 103 (98-107) mmol/L Carbon Dioxide 26 (21-32) mmol/L BUN 19 H (7-18) mg/dl Creatinine 0.94 (0.6-1.2) mg/dl Glucose 120 H (70-99) mg/dl Calcium 8.7 (8.5-10.1) mg/dl AST 29 (15-37) U/L ALT 27 (12-78) U/L Alkaline Phosphatase 72 (45-117) U/L Total Protein 7.3 (6.4-8.2) gm/dl Albumin 3.6 (3.4-5.0) gm/dl Intake and Output 12/25/18 12/25/18 12/25/18 06:59 14:59 22:59 Intake Total 240 / 240 275 / 275 Output Total 550 / 550 1350 / 1350 Balance -310 / -310 -1075 / -1075 Intake: Oral 240 / 240 275 / 275 Output: Other 1350 / 1350 Urine Amount (Catheter) 550 / 550 External 550 / 550 Other: Weight 59.7 kg Diagnostic Findings EKG performed 12/25/18 revealed AF at 100 bpm unchanged compared to 07/11/18. Summary of echocardiogram performed at the [facility] dated : Check the ejection fraction is normal at 60-65% Left atrium is severely dilated Moderate mitral regurgitation is noted. moderate to severe tricuspid regurgitation There is severe pulmonary hypertension with calculated pulmonary artery systolic pressure of 64 mmHg Medications Administered Current Inpatient Medications Acetaminophen (Tylenol) 650 mg PO Q4H PRN PRN Reason: Pain or Fever Stop: 01/24/19 04:52 Acetaminophen (Tylenol) 1,000 mg PO BID [facility] Stop: 01/24/19 08:59 Last Admin: 12/25/18 08:18 Dose: 1,000 mg Albuterol (Ventolin Hfa) 2 puffs INH QID PRN PRN Reason: Shortness Of Breath Stop: 01/24/19 04:52 Aspirin (Ecotrin Ectab) 81 mg PO DAILY [facility] Stop: 01/24/19 08:59 Last Admin: 12/25/18 08:17 Dose: 81 mg Atorvastatin Calcium (Lipitor) 20 mg PO DAILY [facility] Stop: 01/24/19 08:59 Last Admin: 12/25/18 08:17 Dose: 20 mg Gabapentin (Neurontin) 300 mg PO HS [facility] Stop: 01/24/19 20:59 Furosemide 20 mg/ Syringe 2 mls @ 4 mls/min IV [id number] [facility] Stop: 01/24/19 08:59 Last Admin: 12/25/18 08:18 Dose: 4 mls/min Ipratropium [place] (Atrovent 0.02% 0.5mg/2.5ml) 0.5 mg INH Q4H PRN PRN Reason: Shortness Of Breath Or Wheezing Stop: 01/24/19 04:52 Levalbuterol HCl (Xopenex 1.25mg/0.5ml Neb) 1.25 mg INH Q4H PRN PRN Reason: Shortness Of Breath Or Wheezing Stop: 01/24/19 04:52 Levothyroxine Sodium (Synthroid) 25 mcg PO DAILYBB [facility] Stop: 01/24/19 06:29 Last Admin: 12/25/18 06:18 Dose: 25 mcg Metoprolol Tartrate (Lopressor) 100 mg PO BID [facility] Stop: 01/24/19 08:59 Last Admin: 12/25/18 08:17 Dose: 100 mg Nitroglycerin (Nitrostat) 0.4 mg SL UD PRN PRN Reason: Chest Pain Stop: 01/24/19 04:52 Ondansetron HCl (Zofran) 4 mg IV Q6H PRN PRN Reason: Nausea Stop: 01/24/19 04:52 Polyethylene Glycol (Miralax Powder Packet) 17 gm PO DAILY PRN PRN Reason: Constipation Stop: 01/24/19 04:52 Fluticasone/Salmeterol (Advair Diskus 250/50) 1 puffs INH Q12H [facility] Stop: 01/24/19 08:59 Last Admin: 12/25/18 08:18 Dose: 1 puffs Trolamine Salicylate (Myoflex) 1 appln EXT TID PRN PRN Reason: Pain Vitamin D (Vitamin D3) 1,000 units PO DAILY [facility] Stop: 01/24/19 08:59 Last Admin: 12/25/18 08:17 Dose: 1,000 units Warfarin Sodium (Coumadin) 2.5 mg PO SuMoTuThFrSa@1600 [facility] Stop: 01/24/19 15:59 Warfarin Sodium (Coumadin) 5 mg PO We@1600 [facility] Stop: 01/28/19 15:59
[2018-12-25] MEDS: WARFARIN SOD 2.5 MG TAB PO SCH (16:20)
--- NOTE | 2018-12-25 16:55 | Hospitalist Progress Note ---
Date of Service December 25, 2018 Assessment & Plan (1) Acute on chronic heart failure with preserved ejection fraction: Presented with increasing shortness of breath Chest x-ray performed this admission reveals small right greater than left pleural effusions-worse compared with prior Ultrasound did not document enough fluid to have thoracentesis Appreciate cardiology input and recommendation Received 20 of Lasix IV and will continue for now We will monitor kidney function (2) Permanent atrial fibrillation: Currently she is rate controlled in the 80s, EKG revealed atrial fibrillation the range of 100 Continue aspirin 81 mg daily. All of the time for cardiology consult back in July and her most recent follow-up visit in November, it describe that she was off of anticoagulation due to fall risk. It appears she is back on Coumadin now. Her admitting INR was 3.5 and today the INR was 4 and therefore it is being held. Continue metoprolol for rate control. History of fall Considered to be not a candidate for anticoagulation in the past Has been on Coumadin for now We will continue Deafness Patient is very deaf DVT prophylaxis On Coumadin Subjective She is an 83-year-old female with past medical history significant for COPD; hypothyroidism; hyperlipidemia; chronic atrial fibrillation, Coumadin was stopped because of her fall risk, but seems to be restarted again; chronic kidney disease stage III; carotid stenosis; renal hypertension; urge incontinence; Alzheimer dementia, who lives at [facility]. She was brought in because of shortness of breath. She was admitted with CHF. 12/25 The patient was seen and examined in medical telemetry unit She is very hard of hearing but denies any symptoms Denies any shortness of breath and/or palpitation, any nausea and/or vomiting Physical Exam 2 Vital Signs (Past 24 Hours): Last Vital Signs Temp 36.9 C 12/25/18 15:42 Pulse 77 12/25/18 15:57 Resp 16 12/25/18 15:42 BP 129/68 12/25/18 15:42 Pulse Ox 95 12/25/18 15:42 Physical Exam: No apparent distress at rest Constitutional: WD/WN, vitals as above Eyes: PERRL, conjunctivae normal, anicteric sclerae ENMT: external ear and nose normal, oropharynx normal Respiratory: normal respiratory effort; no respiratory distress and no labored breathing Auscultation: + diminished lung sounds and + crackles ( Minimal crackles at the bases) Cardiovascular: Rate/Rhythm: regular rate and regular rhythm Heart Sounds: normal S1 and normal S2 Gastrointestinal (Abdomen): Inspection/Auscultation: abdomen normal to inspection and normal bowel sounds Neurologic: Very deaf, alert, awake and oriented. No focal neuro deficit Results & Data Laboratory Results Short CBC 12/25/18 Range/Units 00:29 WBC 7.09 (4.8-10.8) K/uL Hgb 12.0 (12.0-16.0) g/dL Hct 37.1 (37-47) % Plt Count 175 (130-400) K/uL BMP 12/25/18 00:29 Sodium 135 L Potassium 4.8 Chloride 103 Carbon Dioxide 26 BUN 19 H Creatinine 0.94 Glucose 120 H Calcium 8.7 Cardiac Enzymes 12/25/18 12/25/18 12/25/18 Range/Units 00:29 07:05 12:59 Troponin I < 0.015 < 0.015 < 0.015 (0-0.045) ng/ml Liver Function 12/25/18 Range/Units 00:29 Total Bilirubin 1.0 (0.2-1) mg/dl AST 29 (15-37) U/L ALT 27 (12-78) U/L Alkaline Phosphatase 72 (45-117) U/L Albumin 3.6 (3.4-5.0) gm/dl Medications Administered Current Inpatient Medications Acetaminophen (Tylenol) 650 mg PO Q4H PRN PRN Reason: Pain or Fever Stop: 01/24/19 04:52 Acetaminophen (Tylenol) 1,000 mg PO BID [facility] Stop: 01/24/19 08:59 Last Admin: 12/25/18 08:18 Dose: 1,000 mg Albuterol (Ventolin Hfa) 2 puffs INH QID PRN PRN Reason: Shortness Of Breath Stop: 01/24/19 04:52 Aspirin (Ecotrin Ectab) 81 mg PO DAILY [facility] Stop: 01/24/19 08:59 Last Admin: 12/25/18 08:17 Dose: 81 mg Atorvastatin Calcium (Lipitor) 20 mg PO DAILY [facility] Stop: 01/24/19 08:59 Last Admin: 12/25/18 08:17 Dose: 20 mg Gabapentin (Neurontin) 300 mg PO HS [facility] Stop: 01/24/19 20:59 Furosemide 20 mg/ Syringe 2 mls @ 4 mls/min IV BID17 [facility] Stop: 01/24/19 08:59 Last Admin: 12/25/18 08:18 Dose: 4 mls/min Ipratropium [place] (Atrovent 0.02% 0.5mg/2.5ml) 0.5 mg INH Q4H PRN PRN Reason: Shortness Of Breath Or Wheezing Stop: 01/24/19 04:52 Levalbuterol HCl (Xopenex 1.25mg/0.5ml Neb) 1.25 mg INH Q4H PRN PRN Reason: Shortness Of Breath Or Wheezing Stop: 01/24/19 04:52 Levothyroxine Sodium (Synthroid) 25 mcg PO DAILYBB [facility] Stop: 01/24/19 06:29 Last Admin: 12/25/18 06:18 Dose: 25 mcg Metoprolol Tartrate (Lopressor) 100 mg PO BID [facility] Stop: 01/24/19 08:59 Last Admin: 12/25/18 08:17 Dose: 100 mg Nitroglycerin (Nitrostat) 0.4 mg SL UD PRN PRN Reason: Chest Pain Stop: 01/24/19 04:52 Ondansetron HCl (Zofran) 4 mg IV Q6H PRN PRN Reason: Nausea Stop: 01/24/19 04:52 Polyethylene Glycol (Miralax Powder Packet) 17 gm PO DAILY PRN PRN Reason: Constipation Stop: 01/24/19 04:52 Fluticasone/Salmeterol (Advair Diskus 250/50) 1 puffs INH Q12H [facility] Stop: 01/24/19 08:59 Last Admin: 12/25/18 08:18 Dose: 1 puffs Trolamine Salicylate (Myoflex) 1 appln EXT TID PRN PRN Reason: Pain Vitamin D (Vitamin D3) 1,000 units PO DAILY [facility] Stop: 01/24/19 08:59 Last Admin: 12/25/18 08:17 Dose: 1,000 units Warfarin Sodium (Coumadin) 2.5 mg PO SuMoTuThFrSa@1600 [facility] Stop: 01/24/19 15:59 Last Admin: 12/25/18 16:20 Dose: Not Given Warfarin Sodium (Coumadin) 5 mg PO We@1600 [facility] Stop: 01/28/19 15:59
[2018-12-25] MEDS: GABAPENTIN 300 MG CAP PO SCH (20:13)
[2018-12-25] MEDS ORDERED: NON-FORMULARY MEDICATION (Melatonin [Melatonin] 5 MG) PO SCH (21:00)
[2018-12-26] MEDS: LEVOTHYROXINE SODIUM 25 MCG TABLET PO SCH (05:33)
[2018-12-26 06:10] LABS: Prothrombin Time 36.1 Seconds (9.0-12.0)
[2018-12-26 06:18] LABS: BUN Creatinine Ratio 26.5 (10-20); Calcium 8.4 mg/dl (8.5-10.1); Est GFR (African American) 53.6; Est GFR (Non-African American) 46.3; Magnesium 1.6 mg/dl (1.8-2.4); Potassium 4.3 mmol/L (3.5-5.1)
[2018-12-26 06:46] LABS: INR 3.9 (0.9-1.1)
[2018-12-26] MEDS: FUROSEMIDE 20 MG in SYRINGE 0 ML IV SCH (08:12)
[2018-12-26] MEDS: FLUTICASONE/SALMETEROL 250/50 (ADVAIR) 14 PUFF/1 INHALER INH SCH ×2 (08:12→19:51)
[2018-12-26] MEDS: ATORVASTATIN 20 MG TAB PO SCH (08:13)
[2018-12-26] MEDS: ACETAMINOPHEN 500 MG TAB PO SCH ×2 (08:13→19:52)
[2018-12-26] MEDS: METOPROLOL TARTRATE 100 MG TAB PO SCH ×2 (08:13→19:53)
[2018-12-26] MEDS: ASPIRIN 81 MG ECTAB PO SCH (08:13)
[2018-12-26] MEDS: CHOLECALCIFEROL 1,000 UNITS TAB PO SCH (08:13)
--- NOTE | 2018-12-26 14:35 | Hospitalist Progress Note ---
Date of Service December 26, 2018 Assessment & Plan (1) Acute on chronic heart failure with preserved ejection fraction: Presented with increasing shortness of breath Chest x-ray performed this admission reveals small right greater than left pleural effusions-worse compared with prior Ultrasound did not document enough fluid to have thoracentesis Appreciate cardiology input and recommendation Received 20 of Lasix IV and will continue for now We will monitor kidney function Clinically a lot better today Has been getting 20 of Lasix intravenously the last 2 days We will discharge tomorrow on her usual dose of Lasix Not sure whether she was on oxygen before coming to the hospital (2) Permanent atrial fibrillation: Currently she is rate controlled in the 80s, EKG revealed atrial fibrillation the range of 100 Continue aspirin 81 mg daily. All of the time for cardiology consult back in July and her most recent follow-up visit in November, it describe that she was off of anticoagulation due to fall risk. It appears she is back on Coumadin now. Her admitting INR was 3.5 and today the INR was 4 and therefore it is being held. Continue metoprolol for rate control. History of fall Considered to be not a candidate for anticoagulation in the past Has been on Coumadin for now We will continue Deafness Patient is very deaf DVT prophylaxis On Coumadin INR 3.9 today We will continue her usual dose of Coumadin Subjective She is an 83-year-old female with past medical history significant for COPD; hypothyroidism; hyperlipidemia; chronic atrial fibrillation, Coumadin was stopped because of her fall risk, but seems to be restarted again; chronic kidney disease stage III; carotid stenosis; renal hypertension; urge incontinence; Alzheimer dementia, who lives at [facility]. She was brought in because of shortness of breath. She was admitted with CHF. 12/25 The patient was seen and examined in medical telemetry unit She is very hard of hearing but denies any symptoms Denies any shortness of breath and/or palpitation, any nausea and/or vomiting 12/26 He has been feeling a lot better Apparently she was hiding her pills and under the pillow for the last few days before coming to the hospital Denies any symptoms Physical Exam 2 Vital Signs (Past 24 Hours): Last Vital Signs Temp 36.9 C 12/26/18 11:44 Pulse 71 12/26/18 11:44 Resp 18 12/26/18 11:44 BP 75/45 L 12/26/18 11:44 Pulse Ox 96 12/26/18 11:44 Physical Exam: No apparent distress at rest Constitutional: WD/WN, vitals as above Eyes: PERRL, conjunctivae normal, anicteric sclerae ENMT: external ear and nose normal, oropharynx normal Respiratory: normal respiratory effort; no respiratory distress and no labored breathing Auscultation: + diminished lung sounds and + crackles ( Minimal crackles at the bases) Cardiovascular: Rate/Rhythm: regular rate and regular rhythm Heart Sounds: normal S1 and normal S2 Gastrointestinal (Abdomen): Inspection/Auscultation: abdomen normal to inspection and normal bowel sounds Skin: no rashes, warm and dry Neurologic: Alert, awake and oriented. Very deaf. Mobile with wheelchair Results & Data Laboratory Results [facility] 12/26/18 05:30 Sodium 133 L Potassium 4.3 Chloride 98 Carbon Dioxide 29 BUN 29 H D Creatinine 1.09 Glucose 91 Calcium 8.4 L Medications Administered Current Inpatient Medications Acetaminophen (Tylenol) 650 mg PO Q4H PRN PRN Reason: Pain or Fever Stop: 01/24/19 04:52 Acetaminophen (Tylenol) 1,000 mg PO BID [facility] Stop: 01/24/19 08:59 Last Admin: 12/26/18 08:13 Dose: 1,000 mg Albuterol (Ventolin Hfa) 2 puffs INH QID PRN PRN Reason: Shortness Of Breath Stop: 01/24/19 04:52 Aspirin (Ecotrin Ectab) 81 mg PO DAILY [facility] Stop: 01/24/19 08:59 Last Admin: 12/26/18 08:13 Dose: 81 mg Atorvastatin Calcium (Lipitor) 20 mg PO DAILY [facility] Stop: 01/24/19 08:59 Last Admin: 12/26/18 08:13 Dose: 20 mg Gabapentin (Neurontin) 300 mg PO HS [facility] Stop: 01/24/19 20:59 Last Admin: 12/25/18 20:13 Dose: 300 mg Furosemide 20 mg/ Syringe 2 mls @ 4 mls/min IV BID17 [facility] Stop: 01/24/19 08:59 Last Admin: 12/26/18 08:12 Dose: 4 mls/min Ipratropium [place] (Atrovent 0.02% 0.5mg/2.5ml) 0.5 mg INH Q4H PRN PRN Reason: Shortness Of Breath Or Wheezing Stop: 01/24/19 04:52 Levalbuterol HCl (Xopenex 1.25mg/0.5ml Neb) 1.25 mg INH Q4H PRN PRN Reason: Shortness Of Breath Or Wheezing Stop: 01/24/19 04:52 Levothyroxine Sodium (Synthroid) 25 mcg PO DAILYBB [facility] Stop: 01/24/19 06:29 Last Admin: 12/26/18 05:33 Dose: 25 mcg Metoprolol Tartrate (Lopressor) 100 mg PO BID [facility] Stop: 01/24/19 08:59 Last Admin: 12/26/18 08:13 Dose: 100 mg Nitroglycerin (Nitrostat) 0.4 mg SL UD PRN PRN Reason: Chest Pain Stop: 01/24/19 04:52 Ondansetron HCl (Zofran) 4 mg IV Q6H PRN PRN Reason: Nausea Stop: 01/24/19 04:52 Polyethylene Glycol (Miralax Powder Packet) 17 gm PO DAILY PRN PRN Reason: Constipation Stop: 01/24/19 04:52 Fluticasone/Salmeterol (Advair Diskus 250/50) 1 puffs INH Q12H [facility] Stop: 01/24/19 08:59 Last Admin: 12/26/18 08:12 Dose: 1 puffs Trolamine Salicylate (Myoflex) 1 appln EXT TID PRN PRN Reason: Pain Vitamin D (Vitamin D3) 1,000 units PO DAILY [facility] Stop: 01/24/19 08:59 Last Admin: 12/26/18 08:13 Dose: 1,000 units Warfarin Sodium (Coumadin) 2.5 mg PO [id number]@1600 [facility] Stop: 01/24/19 15:59 Last Admin: 12/25/18 16:20 Dose: Not Given Warfarin Sodium (Coumadin) 5 mg PO We@1600 [facility] Stop: 01/28/19 15:59
[2018-12-26] MEDS: WARFARIN SOD 2.5 MG TAB PO SCH (14:48)
--- NOTE | 2018-12-26 15:06 | Cardiology Progress Note ---
Date of Service December 26, 2018 Assessment & Plan (1) Acute on chronic heart failure with preserved ejection fraction: (2) Permanent atrial fibrillation: Telemetry reveals rate controlled atrial fibrillation in the range of 80 bpm. Her INR is 3.9. At this time, we will discontinue her IV furosemide and transition to furosemide 20 mg p.o. starting tomorrow. Increase activity as tolerated. I am optimistic that she will hopefully be discharged tomorrow. Her most recent blood pressure of 75/45 is felt to be artifactual, as she is feeling well. She has a history of hyponatremia and this is currently stable as is her creatinine. Subjective Chief complaint: Follow-up shortness of breath Subjective: Patient describes interval improvement significantly. She states that she feels good. Her breathing is much improved per her report. Physical Exam 2 Vital Signs (Past 24 Hours): Last Vital Signs Temp 36.9 C 12/26/18 11:44 Pulse 71 12/26/18 11:44 Resp 18 12/26/18 11:44 BP 75/45 L 12/26/18 11:44 Pulse Ox 96 12/26/18 11:44 Constitutional: + thin Respiratory: no cough Auscultation: no crackles, no rales, no rhonchi and no wheezes Cardiovascular: Irregular rhythm, 2/6 systolic murmur, no edema Gastrointestinal (Abdomen): Percussion/Palpation: abdomen soft; abdomen nontender and no guarding Neurologic: Hearing deficit, but is able to respond to questions that I wrote down on a piece of paper, follows commands, moves all 4 extremities Results & Data Diagnostic Findings Echocardiogram performed yesterday 12/25/18 reviewed and apparently: Severe biatrial enlargement is present. Severe mitral regurgitation is present, severe tricuspid regurgitation is present, moderate pulmonary hypertension is present with a PA systolic pressure of 50 mmHg, the LV ejection fraction is mildly reduced at 45-50% Medications Administered Current Inpatient Medications Acetaminophen (Tylenol) 650 mg PO Q4H PRN PRN Reason: Pain or Fever Stop: 01/24/19 04:52 Acetaminophen (Tylenol) 1,000 mg PO BID [facility] Stop: 01/24/19 08:59 Last Admin: 12/26/18 08:13 Dose: 1,000 mg Albuterol (Ventolin Hfa) 2 puffs INH QID PRN PRN Reason: Shortness Of Breath Stop: 01/24/19 04:52 Aspirin (Ecotrin Ectab) 81 mg PO DAILY [facility] Stop: 01/24/19 08:59 Last Admin: 12/26/18 08:13 Dose: 81 mg Atorvastatin Calcium (Lipitor) 20 mg PO DAILY [facility] Stop: 01/24/19 08:59 Last Admin: 12/26/18 08:13 Dose: 20 mg Furosemide (Lasix) 20 mg PO QAM [facility] Stop: 01/26/19 08:59 Gabapentin (Neurontin) 300 mg PO HS [facility] Stop: 01/24/19 20:59 Last Admin: 12/25/18 20:13 Dose: 300 mg Ipratropium [place] (Atrovent 0.02% 0.5mg/2.5ml) 0.5 mg INH Q4H PRN PRN Reason: Shortness Of Breath Or Wheezing Stop: 01/24/19 04:52 Levalbuterol HCl (Xopenex 1.25mg/0.5ml Neb) 1.25 mg INH Q4H PRN PRN Reason: Shortness Of Breath Or Wheezing Stop: 01/24/19 04:52 Levothyroxine Sodium (Synthroid) 25 mcg PO DAILYBB [facility] Stop: 01/24/19 06:29 Last Admin: 12/26/18 05:33 Dose: 25 mcg Metoprolol Tartrate (Lopressor) 100 mg PO BID [facility] Stop: 01/24/19 08:59 Last Admin: 12/26/18 08:13 Dose: 100 mg Nitroglycerin (Nitrostat) 0.4 mg SL UD PRN PRN Reason: Chest Pain Stop: 01/24/19 04:52 Ondansetron HCl (Zofran) 4 mg IV Q6H PRN PRN Reason: Nausea Stop: 01/24/19 04:52 Polyethylene Glycol (Miralax Powder Packet) 17 gm PO DAILY PRN PRN Reason: Constipation Stop: 01/24/19 04:52 Fluticasone/Salmeterol (Advair Diskus 250/50) 1 puffs INH Q12H [facility] Stop: 01/24/19 08:59 Last Admin: 12/26/18 08:12 Dose: 1 puffs Trolamine Salicylate (Myoflex) 1 appln EXT TID PRN PRN Reason: Pain Vitamin D (Vitamin D3) 1,000 units PO DAILY [facility] Stop: 01/24/19 08:59 Last Admin: 12/26/18 08:13 Dose: 1,000 units Warfarin Sodium (Coumadin) 2.5 mg PO [email or web address]@1600 [facility] Stop: 01/24/19 15:59 Last Admin: 12/26/18 14:48 Dose: Not Given Warfarin Sodium (Coumadin) 5 mg PO We@1600 [facility] Stop: 01/28/19 15:59
[2018-12-26] MEDS: GABAPENTIN 300 MG CAP PO SCH (19:52)
[2018-12-27] MEDS: LEVOTHYROXINE SODIUM 25 MCG TABLET PO SCH (06:09)
[2018-12-27 08:58] LABS: INR 1.7 (0.9-1.1); Prothrombin Time 16.7 Seconds (9.0-12.0)
[2018-12-27] MEDS ORDERED: FUROSEMIDE 20 MG TAB PO SCH (09:00)
[2018-12-27] MEDS: ASPIRIN 81 MG ECTAB PO SCH (09:16)
[2018-12-27] MEDS: FLUTICASONE/SALMETEROL 250/50 (ADVAIR) 14 PUFF/1 INHALER INH SCH ×2 (09:16→20:22)
[2018-12-27] MEDS: CHOLECALCIFEROL 1,000 UNITS TAB PO SCH (09:17)
[2018-12-27] MEDS: ACETAMINOPHEN 500 MG TAB PO SCH ×2 (09:17→20:23)
[2018-12-27] MEDS: ATORVASTATIN 20 MG TAB PO SCH (09:17)
[2018-12-27] MEDS: METOPROLOL TARTRATE 100 MG TAB PO SCH ×2 (09:17→20:23)
[2018-12-27 09:26] LABS: BUN Creatinine Ratio 28.7 (10-20); Calcium 8.4 mg/dl (8.5-10.1); Est GFR (African American) 51.9; Est GFR (Non-African American) 44.8; Magnesium 1.8 mg/dl (1.8-2.4); Phosphorus 2.9 mg/dl (2.5-4.9); Potassium 4.2 mmol/L (3.5-5.1)
--- NOTE | 2018-12-27 15:08 | Hospitalist Progress Note ---
Date of Service December 27, 2018 Assessment & Plan (1) Acute on chronic heart failure with preserved ejection fraction: Presented with increasing shortness of breath Chest x-ray performed this admission reveals small right greater than left pleural effusions-worse compared with prior Ultrasound did not document enough fluid to have thoracentesis Appreciate cardiology input and recommendation Received 20 of Lasix IV and will continue for now We will monitor kidney function Clinically a lot better Has been getting 20 of Lasix intravenously the last 2 days We will discharge tomorrow on her usual dose of Lasix Not sure whether she was on oxygen before coming to the hospital She was not on any oxygen before as an outpatient and she does not need She has been stable for the last day Ready to be discharged today (2) Permanent atrial fibrillation: Currently she is rate controlled in the 80s, EKG revealed atrial fibrillation the range of 100 Continue aspirin 81 mg daily. All of the time for cardiology consult back in July and her most recent follow-up visit in November, it describe that she was off of anticoagulation due to fall risk. It appears she is back on Coumadin now. Her admitting INR was 3.5 and today the INR was 4 and therefore it is being held. Continue metoprolol for rate control. 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 She was brought in because of shortness of breath. She was admitted with CHF. 12/25 The patient was seen and examined in medical telemetry unit She is very hard of hearing but denies any symptoms Denies any shortness of breath and/or palpitation, any nausea and/or vomiting 12/26 He has been feeling a lot better Apparently she was hiding her pills and under the pillow for the last few days before coming to the hospital Denies any symptoms 12/27 The patient was seen and examined in medical floor She does not have any symptoms and wants to be discharged Denies any more shortness of breath even with minimal exertion She has not been on oxygen before and she does not need it Physical Exam 2 Vital Signs (Past 24 Hours): Last Vital Signs Temp 36.9 C 12/27/18 07:28 Pulse 120 H 12/27/18 09:15 Resp 18 12/27/18 07:28 BP 112/68 12/27/18 09:15 Pulse Ox 93 12/27/18 07:28 Physical Exam: No apparent distress at rest Constitutional: WD/WN, vitals as above Eyes: PERRL, conjunctivae normal, anicteric sclerae ENMT: external ear and nose normal, oropharynx normal Respiratory: normal respiratory effort; no respiratory distress and no labored breathing Auscultation: + diminished lung sounds and + crackles ( Almost gone) Cardiovascular: Rate/Rhythm: regular rate and regular rhythm Heart Sounds: normal S1 and normal S2 Gastrointestinal (Abdomen): Inspection/Auscultation: abdomen normal to inspection and normal bowel sounds Skin: no rashes, warm and dry Neurologic: Very deaf. Alert and awake. No focal sensory and motor deficit appreciated Results & Data Laboratory Results [facility] 12/27/18 08:13 Sodium 133 L Potassium 4.2 Chloride 98 Carbon Dioxide 29 BUN 32 H Creatinine 1.12 Glucose 124 H Calcium 8.4 L Medications Administered Current Inpatient Medications Acetaminophen (Tylenol) 650 mg PO Q4H PRN PRN Reason: Pain or Fever Stop: 01/24/19 04:52 Acetaminophen (Tylenol) 1,000 mg PO BID [facility] Stop: 01/24/19 08:59 Last Admin: 12/27/18 09:17 Dose: 1,000 mg Albuterol (Ventolin Hfa) 2 puffs INH QID PRN PRN Reason: Shortness Of Breath Stop: 01/24/19 04:52 Aspirin (Ecotrin Ectab) 81 mg PO DAILY [facility] Stop: 01/24/19 08:59 Last Admin: 12/27/18 09:16 Dose: 81 mg Atorvastatin Calcium (Lipitor) 20 mg PO DAILY [facility] Stop: 01/24/19 08:59 Last Admin: 12/27/18 09:17 Dose: 20 mg Furosemide (Lasix) 20 mg PO QAM [facility] Stop: 01/26/19 08:59 Last Admin: 12/27/18 09:17 Dose: 20 mg Gabapentin (Neurontin) 300 mg PO HS [facility] Stop: 01/24/19 20:59 Last Admin: 12/26/18 19:52 Dose: 300 mg Ipratropium [place] (Atrovent 0.02% 0.5mg/2.5ml) 0.5 mg INH Q4H PRN PRN Reason: Shortness Of Breath Or Wheezing Stop: 01/24/19 04:52 Levalbuterol HCl (Xopenex 1.25mg/0.5ml Neb) 1.25 mg INH Q4H PRN PRN Reason: Shortness Of Breath Or Wheezing Stop: 01/24/19 04:52 Levothyroxine Sodium (Synthroid) 25 mcg PO DAILYBB [facility] Stop: 01/24/19 06:29 Last Admin: 12/27/18 06:09 Dose: 25 mcg Metoprolol Tartrate (Lopressor) 100 mg PO BID [facility] Stop: 01/24/19 08:59 Last Admin: 12/27/18 09:17 Dose: 100 mg Nitroglycerin (Nitrostat) 0.4 mg SL UD PRN PRN Reason: Chest Pain Stop: 01/24/19 04:52 Ondansetron HCl (Zofran) 4 mg IV Q6H PRN PRN Reason: Nausea Stop: 01/24/19 04:52 Polyethylene Glycol (Miralax Powder Packet) 17 gm PO DAILY PRN PRN Reason: Constipation Stop: 01/24/19 04:52 Fluticasone/Salmeterol (Advair Diskus 250/50) 1 puffs INH Q12H [facility] Stop: 01/24/19 08:59 Last Admin: 12/27/18 09:16 Dose: 1 puffs Trolamine Salicylate (Myoflex) 1 appln EXT TID PRN PRN Reason: Pain Vitamin D (Vitamin D3) 1,000 units PO DAILY [facility] Stop: 01/24/19 08:59 Last Admin: 12/27/18 09:17 Dose: 1,000 units Warfarin Sodium (Coumadin) 2.5 mg PO [id number]@1600 [facility] Stop: 01/24/19 15:59 Last Admin: 12/26/18 14:48 Dose: Not Given Warfarin Sodium (Coumadin) 5 mg PO We@1600 [facility] Stop: 01/28/19 15:59
[2018-12-27] MEDS: WARFARIN SOD 2.5 MG TAB PO SCH (15:28)
[2018-12-27 16:22] VITALS: BP 122/76; PULSE 98; TEMP 99.1; O2SAT 90
[2018-12-27] MEDS: GABAPENTIN 300 MG CAP PO SCH (20:22)
--- NOTE | 2018-12-28 08:54 | Discharge Summary ---
Date of Service December 28, 2018 Admission HPI Per Admitting Provider DICTATED BY: Marshall Cruz MD DATE OF ADMISSION: 12/25/2018 CHIEF COMPLAINT: Shortness of breath. HISTORY OF PRESENT ILLNESS: This is an 83-year-old female with past medical history significant for COPD; hypothyroidism; hyperlipidemia; chronic atrial fibrillation, Coumadin was stopped because of her fall risk, but seems to be restarted again; chronic kidney disease stage III; carotid stenosis; renal hypertension; urge incontinence; Alzheimer dementia, who lives at [facility]. She was brought in because of shortness of breath. The patient is very hard to hear. Have to write on a paper and she can understand, she answers back appropriately. She states after supper she felt short of breath and she was also having cough with some whitish phlegm. Denies any fever, chills. No chest pain, no nausea, no vomiting, no abdominal pain, no headaches. Appetite is okay. Sleeps okay. Mostly wheelchair bound. Sometimes can walk with a walker. Normal bowel and bladder movements. No blood in the stools, no black stools. No burning micturition. The patient received nebs and Lasix in the ER and right now she is feeling better, hemodynamically stable. Initially was saturating only 82% on room air. She has oxygen at her personal [facility] to use it as needed, but mostly does not use it. Admission Exam Per Admitting Provider GENERAL: The patient is old and frail, not in acute distress, very hard to hear. VITAL SIGNS: Temperature 36.4, pulse 97, respiratory rate 14, blood pressure 168/91, and oxygen 87% room air. HEENT: No pallor, no icterus. Pupils equal, round, and reactive to light. NECK: No JVD, no neck masses, no carotid bruit. CARDIOVASCULAR: S1, S2 heard, regular rate and rhythm, no murmur, no gallop. RESPIRATORY SYSTEM: Normal AP diameter. No accessory muscle use. Mild bibasilar crackles. No wheezing. ABDOMEN: Soft, bowel sounds present. Nontender. No distention. CENTRAL NERVOUS SYSTEM: Cranial nerves II-XII grossly intact. Nonfocal. EXTREMITIES: Bilateral lower extremity, pedal edema +1 present, no erythema seen. Principal Diagnosis Acute on chronic heart failure with preserved ejection fraction, persistent atrial fibrillation Discharge Exam Constitutional WD/WN, vitals as above Eyes PERRL, conjunctivae normal, anicteric sclerae ENMT external ear and nose normal, oropharynx normal Respiratory normal respiratory effort; no respiratory distress and no labored breathing Auscultation: + diminished lung sounds and + crackles (Almost gone) Cardiovascular Rate/Rhythm: regular rate and regular rhythm Heart Sounds: normal S1 and normal S2 Gastrointestinal (Abdomen) Inspection/Auscultation: abdomen normal to inspection and normal bowel sounds Skin no rashes, warm and dry Discharge Data Allergies Allergy/AdvReac Type Severity Reaction Status Date / Time oxycodone Allergy Intermediate DIZZY Verified 12/25/18 01:04 ITCHING tramadol Allergy Intermediate DIZZY Verified 12/25/18 01:04 simvastatin Allergy Mild RASH Verified 12/25/18 01:04 Consultations 12/25/18 02:10 ED Decision to Admit Stat 12/25/18 04:53 Consult Case Management - Discharge Planning Routine 12/25/18 08:00 Consult Cardiology Routine Ordered Studies 12/25/18 04:53 US effusion-chest/mediastinum Routine Hospital Course (1) Acute on chronic heart failure with preserved ejection fraction: Presented with increasing shortness of breath Chest x-ray performed this admission reveals small right greater than left pleural effusions-worse compared with prior Ultrasound did not document enough fluid to have thoracentesis Appreciate cardiology input and recommendation Received 20 of Lasix IV and will continue for now We will monitor kidney function Clinically a lot better Has been getting 20 of Lasix intravenously the last 2 days We will discharge tomorrow on her usual dose of Lasix Not sure whether she was on oxygen before coming to the hospital She was not on any oxygen before as an outpatient and she does not need She has been stable for the last day Ready to be discharged today (2) Permanent atrial fibrillation: Currently she is rate controlled in the 80s, EKG revealed atrial fibrillation the range of 100 Continue aspirin 81 mg daily. All of the time for cardiology consult back in July and her most recent follow-up visit in November, it describe that she was off of anticoagulation due to fall risk. It appears she is back on Coumadin now. Her admitting INR was 3.5 and today the INR was 4 and therefore it is being held. Continue metoprolol for rate control. 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 DVT prophylaxis On Coumadin INR 3.9 today We will continue her usual dose of Coumadin Discussed with cardiology She will be discharged today Total Time Total Time Spent Total Time Spent (In Minutes): 35 minutes Total Time Includes: Examination of the Patient, Discharge Planning, Medication Reconciliation and Communication With Other Providers Discharge Plan Discharge Items Patient Disposition: Personal Alf Reason For Visit: SOB Discharge Diagnosis: Acute on chronic heart failure with preserved ejection fraction, persistent atrial fibrillation Condition: Good Discharge Goals: Decrease discomfort, Increase independence and Improve nutritional status Activity: Resume your previous activity Non-emergency contact: Primary Care Provider Call non-emergency contact if: you have any medication questions and your symptoms worsen Follow-up/Referrals: Montrell Gloria [Physician] - 12/31/18 10:45 am Diet: Heart Healthy and Low Sodium (2gm) Addtl Provider Instructions: Please take precaution to avoid falls Prescriptions: Continue fluticasone-salmeterol [Advair Diskus] 250-50 mcg/dose Blister With Device 1 inh INHALATION Q12H RF: 0 prednisone 10 mg Tablet 10 mg PO DIRECTED PRN (Reason: RESCUE KIT) RF: 0 atorvastatin 20 mg Tablet 20 mg PO DAILY RF: 0 metoprolol tartrate 100 mg Tablet 100 mg PO BID RF: 0 aspirin 81 mg Tablet,Delayed Release (Dr/Ec) 81 mg PO DAILY RF: 0 acetaminophen [Tylenol Extra Strength] 500 mg Tablet 1,000 mg PO AMPM RF: 0 acetaminophen [Tylenol Extra Strength] 500 mg Tablet 1,000 mg PO BID MDD 3000 GRAM/24 HOURS PRN (Reason: Fever Or Pain) RF: 0 levothyroxine 25 mcg Tablet 25 mcg PO DAILYBB RF: 0 gabapentin 300 mg Capsule 300 mg PO HS RF: 0 albuterol sulfate [Ventolin HFA] 90 mcg/actuation Hfa Aerosol Inhaler 2 puff INHALATION QID PRN (Reason: Shortness Of Breath) RF: 0 cholecalciferol (vitamin D3) 1,000 unit Capsule 1,000 unit PO DAILY RF: 0 food supplemt, lactose-reduced [Ensure] Liquid 1 btl PO BID RF: 0 melatonin 5 mg Tablet 5 mg PO HS RF: 0 propylene glycol [Systane Balance] 0.6 % Drops 1 drp OPB BID RF: 0 furosemide [Lasix] 40 mg Tablet 20 mg PO DAILY PRN (Reason: >5 LB WT GAIN) RF: 0 warfarin 2.5 mg Tablet 2.5 mg PO [id number] RF: 0 warfarin 5 mg Tablet 5 mg PO WK RF: 0 carbamide peroxide [Debrox] 6.5 % Drops 5 - 10 drp OTIC (EAR) DAILY PRN (Reason: WAX BUILD UP) RF: 0 lidocaine HCl [Aspercreme (lidocaine)] 4 % Cream 1 applic TOPICAL TID PRN (Reason: Pain) RF: 0 Stand-Alone Forms: [facility] Discharge Orders: Discharge Order (Routine); Ordered 12/27/18 Ordered By: Jaimee Tesfaye Admission Data Admit Date/Time: 12/25/18 03:21 Attending Provider: Jaimee Tesfaye Admit Provider: Marshall Cruz Primary Care Provider: Carlos Ramirez,[facility], [facility] Other Providers: Marshall Cruz ; Clark Pitt ; Michael Gustafson ; Prem Villar ; Jairo Carranza ; Flo Treviño ; Montrell Alarcon ; Jenise Graves ; Alanna De Santiago Service: Telemetry Medical Other Interventions: Discharge Summary Assessment (RN) Last Done: 12/27/18 15:31 DC Date/Time DO NOT enter until pt leaves facility: 12/27/18 21:10
[2018-12-29] MEDS ORDERED: WARFARIN SOD 5 MG TAB PO SCH (16:00)
== END 2018-12-27 21:10 | disposition home or self-care (01) | DRG 291 ==
LOC: ED 00:12 → 2W 03:21

== ENCOUNTER 2020-06-22 07:03 | Observation (INO) ==
[2020-06-22] MEDS ORDERED: ACETAMINOPHEN 1,000 MG/100 ML VIAL IV STA (07:07)
[2020-06-22] MEDS ORDERED: HYDROmorphone INJ 0.5 MG/0.5 ML SYR IV PRN (07:07)
[2020-06-22] MEDS ORDERED: ONDANSETRON INJ 2 MG/ML 2 ML VIAL IV STA (07:07)
[2020-06-22] MEDS ORDERED: LIDOCAINE 5% 1 PATCH TD STA (07:07)
[2020-06-22] MEDS ORDERED: SODIUM CHLORIDE 0.9% 1000ML 500 ML IV ONE ×2 (07:10→09:18)
--- NOTE | 2020-06-22 07:12 | Emergency Department Note ---
History of Present Illness General Chief complaint: Illness Stated complaint: Back Pain Source: patient, EMS, RN notes reviewed and old records reviewed Mode of arrival: EMS Limitations: physical limitation (CANTWELL) History of Present Illness Provider complaint: back pain, sores on feet Onset (ago): day(s) 2 Location: back Radiation: non-radiation Severity: moderate Pain Consistency: + colicky Current Pain Intensity: 5 Quality: + stabbing Relieved By: + immobilization Exacerbated By: + movement Associated symptoms: + denies other symptoms; no chest pain, no fever/chills, no headaches, no nausea/vomiting and no shortness of breath Treatments prior to arrival: none This is an 85-year-old female who was sent in from her assisted over concerns that the patient has not been eating for the past 2 weeks. In addition the patient is also complaining of sores on her feet as well as back pain. She denies any fevers or chills. Patient has not taken anything for the back pain. Patient's family is concerned that the patient has stopped eating and has had a significant weight loss over the past several weeks. Home Medications Home Medications Medication Instructions Recorded Confirmed Type Ensure 1 btl PO BID 07/11/18 06/22/20 History Systane Balance 1 drp OPB Q4H 07/11/18 06/22/20 History acetaminophen [Tylenol Extra 1,000 mg PO AMPM 07/11/18 06/22/20 History Strength] acetaminophen [Tylenol Extra 1,000 mg PO BID PRN MDD 3000 07/11/18 06/22/20 History Strength] GRAM/24 HOURS albuterol sulfate [Ventolin HFA] 2 puff INHALATION QID PRN 07/11/18 06/22/20 History aspirin 81 mg PO DAILY 07/11/18 06/22/20 History atorvastatin 20 mg PO DAILY 07/11/18 06/22/20 History cholecalciferol (vitamin D3) 1,000 unit PO DAILY 07/11/18 06/22/20 History fluticasone propion-salmeterol 1 inh INHALATION Q12H 07/11/18 06/22/20 History [Advair Diskus] levothyroxine 25 mcg PO DAILYBB 07/11/18 06/22/20 History melatonin 5 mg PO HS 07/11/18 06/22/20 History metoprolol tartrate 100 mg PO BID 07/11/18 06/22/20 History prednisone 10 mg PO DIRECTED PRN 07/11/18 06/22/20 History furosemide [Lasix] 20 mg PO DAILY PRN 12/25/18 06/22/20 History lidocaine HCl [Aspercreme 1 applic TOPICAL TID PRN 12/25/18 06/22/20 History (lidocaine)] warfarin 2.5 mg PO DAILY@16 12/25/18 06/22/20 History azithromycin See Rx Instructions .ROUTE 06/22/20 06/22/20 History .COMPLEX PRN furosemide 20 mg PO DAILY 06/22/20 06/22/20 History mirtazapine 7.5 mg PO HS 06/22/20 06/22/20 History Allergies Allergy/AdvReac Type Severity Reaction Status Date / Time oxycodone Allergy Intermediate DIZZY Verified 12/25/18 01:04 ITCHING tramadol Allergy Intermediate DIZZY Verified 12/25/18 01:04 simvastatin Allergy Mild RASH Verified 12/25/18 01:04 Past Med/Surg History Medical History Anemia Atrial fibrillation Chronic kidney disease CKD (chronic kidney disease), stage III COPD (chronic obstructive pulmonary disease) Fall Fracture of head of humerus HLD (hyperlipidemia) HTN (hypertension) HTN, goal to be determined Hypothyroidism Osteoporosis Surgical History History of left-sided carotid endarterectomy Family History Brother Cancer Lung cancer Other No pertinent family history Social History Smoking Status: Former smoker packs per day: 1; Years Smoked: 44; Hx Alcohol Use: No Hx Substance Use: No Preferred Language: Iraqi Communication Ability: Impaired Communication Ability Comment: Hard of hearing Visual Impairment: No Limitations Hearing Ability: Hard of Hearing 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 Beliefs That Will Affect Care: None marital status: / Current Living Situation: Personal Care Facility Current Living Situation Comment: [facility] Feels Safe at Home: Yes Review of Systems A total of 10 systems reviewed and were otherwise negative Physical Exam Vital Signs Vital Signs - 24 hr 06/22/20 07:11 06/22/20 07:17 06/22/20 07:25 Temperature Temperature Source Oral Pulse Rate 102 H Pulse Rate from SpO2 Sensor Respiratory Rate 19 22 Respiratory Effort / Characteristics Respiratory Depth Respiratory Pattern Blood Pressure 149/89 H Blood Pressure Mean 105 Blood Pressure Position Pulse Oximetry Oxygen Delivery Method Sepsis Recent Fever Within 48 Hours Sepsis New/Unexplained Change in Mental Status Sepsis Action Taken by Nursing 06/22/20 07:26 06/22/20 07:30 06/22/20 07:31 Temperature 36.4 C L Temperature Source Oral Pulse Rate 99 H 99 H 96 H Pulse Rate from SpO2 Sensor 98 H 93 H Respiratory Rate 12 19 20 Respiratory Effort / Characteristics Non-Labored Respiratory Depth Normal Respiratory Pattern Regular Blood Pressure 149/81 H 131/92 Blood Pressure Mean 103 116 Blood Pressure Position Lying Pulse Oximetry 98 96 97 Oxygen Delivery Method Room Air Sepsis Recent Fever Within 48 Hours No Sepsis New/Unexplained Change in Mental Status No Sepsis Action Taken by Nursing No Action Required 06/22/20 07:45 06/22/20 08:00 06/22/20 08:01 Temperature Temperature Source Pulse Rate 97 H Pulse Rate from SpO2 Sensor 88 89 97 H Respiratory Rate 16 19 Respiratory Effort / Characteristics Respiratory Depth Respiratory Pattern Blood Pressure 138/96 Blood Pressure Mean 117 Blood Pressure Position Pulse Oximetry 99 95 96 Oxygen Delivery Method Sepsis Recent Fever Within 48 Hours Sepsis New/Unexplained Change in Mental Status Sepsis Action Taken by Nursing 06/22/20 08:15 06/22/20 08:30 06/22/20 08:31 Temperature Temperature Source Pulse Rate 91 H 102 H 91 H Pulse Rate from SpO2 Sensor 93 H 96 H 96 H Respiratory Rate 19 22 21 Respiratory Effort / Characteristics Respiratory Depth Respiratory Pattern Blood Pressure 143/92 H Blood Pressure Mean 125 Blood Pressure Position Pulse Oximetry 96 96 96 Oxygen Delivery Method Sepsis Recent Fever Within 48 Hours Sepsis New/Unexplained Change in Mental Status Sepsis Action Taken by Nursing 06/22/20 08:45 06/22/20 09:00 06/22/20 09:01 Temperature Temperature Source Pulse Rate 93 H 90 Pulse Rate from SpO2 Sensor 92 H Respiratory Rate 17 Respiratory Effort / Characteristics Respiratory Depth Respiratory Pattern Blood Pressure 139/91 Blood Pressure Mean 121 Blood Pressure Position Pulse Oximetry 97 Oxygen Delivery Method Sepsis Recent Fever Within 48 Hours Sepsis New/Unexplained Change in Mental Status Sepsis Action Taken by Nursing 06/22/20 09:15 06/22/20 09:30 06/22/20 09:31 Temperature Temperature Source Pulse Rate 84 92 H 88 Pulse Rate from SpO2 Sensor Respiratory Rate 13 20 19 Respiratory Effort / Characteristics Respiratory Depth Respiratory Pattern Blood Pressure 153/73 H Blood Pressure Mean 109 Blood Pressure Position Pulse Oximetry Oxygen Delivery Method Sepsis Recent Fever Within 48 Hours Sepsis New/Unexplained Change in Mental Status Sepsis Action Taken by Nursing VITAL SIGNS - Vital signs and nursing notes were reviewed. GENERAL - 85-year-old cachectic appearing female stated age who is in no acute distress. [place] SKIN - Without rashes. HEAD - NC/AT. EYES - PERRL with EOMI bilaterally. Sclera anicteric. Palpebral conjunctiva pink and moist with no injection noted. EARS - No deformities of external structures noted on gross examination bilaterally. No pain elicited with palpation of the tragus bilaterally. External auditory canals without discharge or otorrhea. Tympanic membranes pearly escalante without retraction or bulging. No fluid or purulent material visualized behind the TM. Handle of malleus, umbo, cone of light, pars tensa/flaccid all easily visualized. NOSE - Midline and without cyanosis. No epistaxis or purulent drainage noted. Septum midline without deviation or septal hematoma noted. MOUTH/OROPHARYNX - Without perioral cyanosis. Buccal mucosa pink and moist and without leukoplakia. Tongue midline with equal elevation of palate bilaterally. No tonsillar hypertrophy, erythema, or exudates noted. dentition noted. NECK - Neck with FROM. Supple to palpation. lymphadenopathy noted. No nuchal rigidity. LUNGS - Chest wall symmetric without accessory muscle use, intercostals retractions, or central cyanosis. Normal vesicular breath sounds CTA B/L. No wheezes, rales, or rhonchi appreciated. CARDIAC - RRR with S1/S2. No murmur, rubs, or gallops appreciated. ABDOMEN - Abdominal contour without pulsations or visible masses. BS normoactive all four quadrants. No tenderness, palpable masses, hepatosplenomegaly, or ascites noted. EXTREMITIES - No clubbing or peripheral cyanosis. No pretibial edema present. +3/5 radial, posterior tibial, and dorsalis pedis pulses palpated throughout. +5/5 strength noted in UE/LE bilaterally. NEUROLOGIC - Cranial nerves II through XII grossly intact. Sensory intact to light touch throughout. Patellar reflexes +2/4. PSYCH - A&Ox3 and cooperates fully with examiner. Pt is very pleasant and interacts well with examiner. Course Administered Medications Hydromorphone HCl (Hydromorphone Inj 0.5 Mg/0.5 Ml Syr) 0.25 mg IV Q15M PRN PRN Reason: Pain Stop: 07/06/20 07:06 Last Admin: 06/22/20 11:21 Dose: 0.25 mg Documented by: [id number] Discontinued Medications Acetaminophen (Ofirmev) 1,000 mg in 100 mls @ 400 mls/hr IV NOW STA Stop: 06/22/20 07:21 Last Infusion: 06/22/20 08:30 Dose: 0 mls/hr Documented by: [id number] Admin: 06/22/20 08:11 Dose: 400 mls/hr Documented by: [id number] Sodium Chloride (Nss 1000ml) 500 mls @ 999 mls/hr IV .Q31M ONE Stop: 06/22/20 07:40 Last Infusion: 06/22/20 08:45 Dose: 0 mls/hr Documented by: [id number] Admin: 06/22/20 08:11 Dose: 999 mls/hr Documented by: [id number] Sodium Chloride (Nss 1000ml) 500 mls @ 999 mls/hr IV .Q31M ONE Stop: 06/22/20 09:48 Last Infusion: 06/22/20 10:45 Dose: 0 mls/hr Documented by: [id number] Admin: 06/22/20 10:14 Dose: 999 mls/hr Documented by: [id number] Ceftriaxone Sodium (Rocephin) 2,000 mg in 70 mls @ 140 mls/hr IV NOW STA Stop: 06/22/20 09:47 Last Infusion: 06/22/20 11:45 Dose: 0 mls/hr Documented by: [id number] Admin: 06/22/20 11:15 Dose: 140 mls/hr Documented by: [id number] Phytonadione 10 mg/ Sodium (Chloride) 51 mls @ 102 mls/hr IV ONE ONE Stop: 06/22/20 09:53 Last Infusion: 06/22/20 10:11 Dose: 0 mls/hr Documented by: [id number] Admin: 06/22/20 09:41 Dose: 102 mls/hr Documented by: [id number] Lidocaine (Lidocaine 5% 1 Patch) 1 patch TD NOW STA Stop: 06/22/20 07:08 Last Admin: 06/22/20 08:11 Dose: 1 patch Documented by: [id number] Ondansetron HCl (Ondansetron Inj 2 Mg/Ml 2 Ml Vial) 4 mg IV NOW STA Stop: 06/22/20 07:08 Last Admin: 06/22/20 11:21 Dose: 4 mg Documented by: [id number] Ondansetron HCl (Ondansetron Inj 2 Mg/Ml 2 Ml Vial) Confirm Administered Dose 4 mg .ROUTE .STK-MED ONE Stop: 06/22/20 11:21 Last Admin: 06/22/20 11:21 Dose: Not Given Documented by: [id number] Medical Decision Making Differential Diagnosis Infection, dehydration, metabolic abnormality, hypo/hyperglycemia, electrolyte disturbance, anemia, hypoxia, cardiac sources, intracerebral event, toxicologic, neurologic, as well as other pathologies. Medical Records Attestation: I reviewed the patient's medical records. Home Medications Current Medication List: was personally reviewed by me Laboratory Data Attestation: I reviewed the patient's lab results. Result diagrams: 06/22/20 07:20 06/22/20 08:32 Lab Results 06/22/20 06/22/20 06/22/20 Range/Units 07:20 07:20 07:20 WBC 13.80 H (4.8-10.8) K/uL RBC 4.75 (4.2-5.4) M/uL Hgb 15.3 (12.0-16.0) g/dL Hct 46.2 (37-47) % MCV 97.3 (80-100) fL MCH 32.2 (25-34) pg MCHC 33.1 (32-36) g/dL RDW Std Deviation 55.1 H (36.4-46.3) fL RDW Coeff of Tru 16.2 H (11.5-14.5) % Plt Count 224 (130-400) K/uL MPV 10.5 H (7.4-10.4) fL Immature Gran % (Auto) 0.3 % Neut % (Auto) 81.5 % Lymph % (Auto) 12.0 % Crook % (Auto) 5.7 % Eos % (Auto) 0.4 % Baso % (Auto) 0.1 % Neut # (Auto) 11.27 H (1.4-6.5) K/uL Lymph # (Auto) 1.65 (1.2-3.4) K/uL [place] # (Auto) 0.78 H (0.11-0.59) K/uL Eos # (Auto) 0.05 (0-0.5) K/uL Baso # (Auto) 0.01 (0-0.2) K/uL Immature Gran # (Auto) 0.04 H (0.00-0.02) K/uL PT Cancelled INR Cancelled Sodium 139 (136-145) mmol/L Potassium (3.5-5.1) mmol/L Chloride 107 (98-107) mmol/L Carbon Dioxide 26 (21-32) mmol/L Anion Gap 6.0 (3-11) BUN 76 H (7-18) mg/dl Creatinine 1.31 H (0.6-1.2) mg/dl Est Cr Clr Drug Dosing 22.0 ml/min Est GFR ( Amer) 42.3 Est GFR (Non-Af Amer) 36.5 BUN/Creatinine Ratio 58.2 H (10-20) Glucose 97 (70-99) mg/dl Calcium 10.0 (8.5-10.1) mg/dl Total Bilirubin 0.7 (0.2-1) mg/dl AST (15-37) U/L ALT 14 (12-78) U/L Alkaline Phosphatase 80 (45-117) U/L Total Creatine Kinase (26-192) U/L Troponin I < 0.015 (0-0.045) ng/ml Total Protein 8.1 (6.4-8.2) gm/dl Albumin 3.4 (3.4-5.0) gm/dl Globulin 4.7 H (2.5-4.0) gm/dl Albumin/Globulin Ratio 0.7 L (0.9-2) TSH 1.390 (0.300-4.500) uIu/ml Urine Color Urine Appearance (Clear) Urine pH (4.5-7.5) Ur Specific [place] (1.000-1.030) Urine Protein (Negative) Urine Glucose (UA) (Negative) Urine Ketones (Negative) Urine Blood (Negative) Urine Nitrite (Negative) Urine Bilirubin (Negative) Urine Urobilinogen (Negative) Ur Leukocyte Esterase (Negative) Urine WBC (Auto) (0-5) /hpf Urine RBC (Auto) (0-4) /hpf U Hyaline Cast (Auto) (0-5) /lpf U Epithel Cells (Auto) (0-5) /lpf Urine Bacteria (Auto) (Negative) 06/22/20 06/22/20 06/22/20 Range/Units 08:32 08:32 09:15 WBC (4.8-10.8) K/uL RBC (4.2-5.4) M/uL Hgb (12.0-16.0) g/dL Hct (37-47) % MCV (80-100) fL MCH (25-34) pg MCHC (32-36) g/dL RDW Std Deviation (36.4-46.3) fL RDW Coeff of Tru (11.5-14.5) % Plt Count (130-400) K/uL MPV (7.4-10.4) fL Immature Gran % (Auto) % Neut % (Auto) % Lymph % (Auto) % [place] % (Auto) % Eos % (Auto) % Baso % (Auto) % Neut # (Auto) (1.4-6.5) K/uL Lymph # (Auto) (1.2-3.4) K/uL [place] # (Auto) (0.11-0.59) K/uL Eos # (Auto) (0-0.5) K/uL Baso # (Auto) (0-0.2) K/uL Immature Gran # (Auto) (0.00-0.02) K/uL PT > 90.0 H INR > 9.7 H* Sodium (136-145) mmol/L Potassium 3.8 (3.5-5.1) mmol/L Chloride (98-107) mmol/L Carbon Dioxide (21-32) mmol/L Anion Gap (3-11) BUN (7-18) mg/dl Creatinine (0.6-1.2) mg/dl Est Cr Clr Drug Dosing ml/min Est GFR ( Amer) Est GFR (Non-Af Amer) BUN/Creatinine Ratio (10-20) Glucose (70-99) mg/dl Calcium (8.5-10.1) mg/dl Total Bilirubin (0.2-1) mg/dl AST 18 (15-37) U/L ALT (12-78) U/L Alkaline Phosphatase (45-117) U/L Total Creatine Kinase 34 (26-192) U/L Troponin I (0-0.045) ng/ml Total Protein (6.4-8.2) gm/dl Albumin (3.4-5.0) gm/dl Globulin (2.5-4.0) gm/dl Albumin/Globulin Ratio (0.9-2) TSH (0.300-4.500) uIu/ml Urine Color Yellow Urine Appearance Clear (Clear) Urine pH 5.0 (4.5-7.5) Ur Specific [place] 1.021 (1.000-1.030) Urine Protein Trace H (Negative) Urine Glucose (UA) Negative (Negative) Urine Ketones Negative (Negative) Urine Blood Negative (Negative) Urine Nitrite Negative (Negative) Urine Bilirubin Negative (Negative) Urine Urobilinogen Negative (Negative) Ur Leukocyte Esterase Negative (Negative) Urine WBC (Auto) 0 (0-5) /hpf Urine RBC (Auto) 0-4 (0-4) /hpf U Hyaline Cast (Auto) 1-5 (0-5) /lpf U Epithel Cells (Auto) 0-5 (0-5) /lpf Urine Bacteria (Auto) Negative (Negative) Imaging Data Radiologist's Impression: [place], [place] [phone] XRay Report Patient: GRACIELA COWAN Admit Date: 06/22/20 MR#: [id number] Address1: [address] [place] [address] Acct ID:[id number] Address2: [employer] Date: 1935 [facility] Zip: [place] [address] Age: 85 Location: ED Sex: F Room/Bed: Att Phy: Diagnosis: Back Pain Vani Phy: Anellet[address] [employer] Service Date: 06/22/20 Fam Phy: Interpreting Phy: James Choi MD Admit Phy: Ordering Phy: Billy Trujillo MD cc: ~ XR chest 1V portable CLINICAL HISTORY: weakness COMPARISON STUDY: 12/25/2018 FINDINGS: The heart is the upper limits of normal in size. There is no failure. There is no focal pulmonary consolidation. There are no pleural effusions. Nodular opacities within the left hemithorax are felt to relate to costochondral junctions. Arthritic changes are present within the shoulders. There is an old posttraumatic deformity of the proximal left humerus.[ IMPRESSION: No active disease in the chest. ACT 112: Negative or not required by law. Electronically signed by: James Choi M.D. 06/22/2020 7:29 AM Dictated: 06/22/20727 Transcribed: 06/22/20727 [place], [place] [phone] CT Scan Report Patient: GRACIELA COWAN Admit Date: 06/22/20 MR#: [id number] Address1: [address] [place] [address] Acct ID:[id number] Address2: [facility] Date: 1935 [facility] Zip: [place] [address] Age: 85 Location: ED Sex: F Room/Bed: Att Phy: Diagnosis: Back Pain Vani Phy: Anellet[address] [employer] Service Date: 06/22/20 Fam Phy: Interpreting Phy: Jefe Hewitt MD Admit Phy: Ordering Phy: Billy Trujillo MD cc: ~ CT chest wo con CT DOSE: 708.94 mGy.cm HISTORY: Pt c/o severe Rt sided back pain TECHNIQUE: Multiaxial CT images of the chest were performed without contrast. A dose lowering technique was utilized adhering to the principles of ALARA. COMPARISON: Chest CT 07/11/2018. FINDINGS: Mild emphysema. No pneumothorax. No pleural effusions. A few bibasilar linear densities consistent with subsegmental atelectasis. A few punctate calcified granulomas are noted. The central airways are patent. Small amount of mucoid material within the mid trachea. Moderate calcified plaque within the normal caliber thoracic aorta. No mediastinal hilar lymphadenopathy. Mitral annulus calcifications are noted. The heart is top normal in size. Normal esophagus. Limited views of the upper abdomen demonstrate a normal liver and spleen. Bilateral renal hypodense lesions favor cysts. Advanced degenerative changes within the bilateral shoulders. Old fracture seen within the thoracic spine, sternum, left humeral neck, and ribs. No acute fractures identified within the chest. IMPRESSION: 1. No acute fractures within the chest. 2. Multiple old fractures as described above. 3. Mild emphysema. 4. No pneumothorax. ACT 112: Negative or not required by law. Electronically signed by: Jefe Hewitt M.D. 06/22/2020 8:21 AM Dictated: 06/22/20813 Transcribed: 06/22/20813 [place], [place] [phone] CT Scan Report Patient: GRACIELA COWAN Admit Date: 06/22/20 MR#: [id number] Address1: [address] [place] [address] [address] Acct ID:[id number] Address2: [facility] Date: 1935 [facility] Zip: [place] [address] Age: 85 Location: ED Sex: F Room/Bed: Att Phy: Diagnosis: Back Pain Vani Phy: Anellet[address] [employer] Service Date: 06/22/20 Fam Phy: Interpreting Phy: Jefe Hewitt MD Admit Phy: Ordering Phy: Billy Trujillo MD cc: ~ THORACIC SPINE CT, LUMBAR SPINE CT CT DOSE: HISTORY: Pt c/o low back pain TECHNIQUE: Multiaxial CT images of the thoracic and lumbar spine were performed and reformatted in the sagittal and coronal plane without the use of contrast. A dose lowering technique was utilized adhering to the principles of ALARA. COMPARISON: Chest CT 07/11/2018 FINDINGS: Mild anterior wedge-shaped deformity at T6, a severe compression deformity at T8, and a moderate superior endplate compression deformity at L1 remain unchanged. Therefore, these are considered to be old. No acute fractures within the thoracic or lumbar spine. 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 Mild degenerative disc disease throughout the majority of the thoracic spine. There is also mild disc space narrowing at L1-L2 and L4-L5. Severe disc space narrowing at L5-S1. Moderate facet degenerative changes within the lumbar spine. Old, healed fracture at S2. There is also an old, healed sternal fracture. Multiple old, healed bilateral rib fractures. Mild central canal narrowing at L1 due to the mild retropulsion of the old compression deformity. Paravertebral soft tissues within the thoracic and lumbar spine are intact. There is 5 mm of anterolisthesis of L4 on L5. IMPRESSION: 1. Multiple old, healed fractures within the thoracic and lumbar spine as described above. 2. No acute fractures identified. ACT 112: Negative or not required by law. Electronically signed by: Jefe Hewitt M.D. 06/22/2020 8:10 AM Dictated: 06/22/20801 Transcribed: 06/22/20801 ECG Data Attestation: I personally reviewed and interpreted this ECG as follows: Indication: + weakness Rate (beats per minute): 94 Rhythm: + atrial fibrillation ECG Intervals/blocks: + Normal QT-c (437) ECG Holland: + Normal ECG ST segments: no ST depression and no ST elevation Comparison ECG Date: from (12/25/2018) Change: no significant change MDM Narrative Patient was seen and evaluated as above in room A10. Review was performed of nursing notes and vital signs. I did review pertinent previous visits and patient history. After obtaining a thorough history and physical examination the above work up was performed. This is an 85-year-old female who presents the emergency department complaining of back pain. Family is concerned that the patient has lost a significant amount of weight and is not doing well. She was discussed An order was placed for continuous cardiac monitoring. The monitor shows a rate of 99 with Atrial Fib rhythm. I attest that I have personally reviewed the patient medication list. I attest that I have reviewed the patient's blood pressure and it was found to be [] GCS: 15 The patient was evaluated during the global COVID-19 pandemic, and that diagnosis was suspected/considered upon their initial presentation. Their evaluation, treatment and testing was consistent with current guidelines for patients who present with complaints or symptoms that may be related to COVID- 19. Impression & Plan Weight loss, Leukocytosis, MARYLOU (acute kidney injury), Permanent atrial fibrillation, Low back pain at multiple sites, Supratherapeutic INR Discharge Plan Visit Data Chief Complaint: Illness Stated Complaint: Back Pain ED Provider: Billy Trujillo Discharge Problem: Weight loss, Leukocytosis, MARYLOU (acute kidney injury), Permanent atrial fibrillation, Low back pain at multiple sites, Supratherapeutic INR Patient Disposition: Admitted As Inpatient Discharge Instructions Interventions: ED Discharge Assessment Last Done: 06/22/20 12:05 Discharge Problem: Leukocytosis Qualifiers: Leukocytosis type: unspecified Qualified Code(s): D72.829 - Elevated white blood cell count, unspecified
--- NOTE | 2020-06-22 07:30 | XRay Report ---
XR chest 1V portable CLINICAL HISTORY: weakness COMPARISON STUDY: 12/25/2018 FINDINGS: The heart is the upper limits of normal in size. There is no failure. There is no focal pul monary consolidation. There are no pleural effusions. Nodular opacities within the left hemithorax ar e felt to relate to costochondral junctions. Arthritic changes are present within the shoulders. Ther e is an old posttraumatic deformity of the proximal left humerus.[ IMPRESSION: No active disease in the chest. ACT 112: Negative or not required by law. Electronically signed by: James Choi M.D. 06/22/2020 7:29 AM
[2020-06-22 07:44] LABS: Basophils # (auto) 0.01 K/uL (0-0.2); Basophils % (auto) 0.1 %; Eosinophils # (auto) 0.05 K/uL (0-0.5); Eosinophils % (auto) 0.4 %; Hematocrit (blood only) 46.2 % (37-47); Hemoglobin 15.3 g/dL (12.0-16.0); Immature Granulocytes # (auto) 0.04 K/uL (0.00-0.02); Immature Granulocytes % (auto) 0.3 %; Lymphocytes # (auto) 1.65 K/uL (1.2-3.4); Mean Corpuscular Hemoglobin 32.2 pg (25-34); Mean Corpuscular Hgb Conc 33.1 g/dL (32-36); Mean Corpuscular Volume 97.3 fL (80-100); Mean Platelet Volume 10.5 fL (7.4-10.4); Monocytes # (auto) 0.78 K/uL (0.11-0.59); Monocytes % (auto) 5.7 %; Neutrophils # (auto) 11.27 K/uL (1.4-6.5); Neutrophils % (auto) 81.5 %; Platelet Count 224 K/uL (130-400); RDW Coefficient of Variation 16.2 % (11.5-14.5); RDW Standard Deviation 55.1 fL (36.4-46.3); Red Blood Count 4.75 M/uL (4.2-5.4)
--- NOTE | 2020-06-22 08:11 | CT Scan Report ---
THORACIC SPINE CT, LUMBAR SPINE CT CT DOSE: HISTORY: Pt c/o low back pain TECHNIQUE: Multiaxial CT images of the thoracic and lumbar spine were performed and reformatted in th e sagittal and coronal plane without the use of contrast. A dose lowering technique was utilized adh ering to the principles of ALARA. COMPARISON: Chest CT 07/11/2018 FINDINGS: Mild anterior wedge-shaped deformity at T6, a severe compression deformity at T8, and a mod erate superior endplate compression deformity at L1 remain unchanged. Therefore, these are considered to be old. No acute fractures within the thoracic or lumbar spine. 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 Mild degenerative disc disease throughout the majority of the thoracic spine. There is also mild disc space narrowing at L1-L2 and L4-L5. Severe disc space narrowing at L5-S1. Moderate fac et degenerative changes within the lumbar spine. Old, healed fracture at S2. There is also an old, he aled sternal fracture. Multiple old, healed bilateral rib fractures. Mild central canal narrowing at L1 due to the mild retropulsion of the old compression deformity. Paravertebral soft tissues within t he thoracic and lumbar spine are intact. There is 5 mm of anterolisthesis of L4 on L5. IMPRESSION: 1. Multiple old, healed fractures within the thoracic and lumbar spine as described above. 2. No acute fractures identified. ACT 112: Negative or not required by law. Electronically signed by: Jefe Hewitt M.D. 06/22/2020 8:10 AM
--- NOTE | 2020-06-22 08:22 | CT Scan Report ---
CT chest wo con CT DOSE: 708.94 mGy.cm HISTORY: Pt c/o severe Rt sided back pain TECHNIQUE: Multiaxial CT images of the chest were performed without contrast. A dose lowering techni que was utilized adhering to the principles of ALARA. COMPARISON: Chest CT 07/11/2018. FINDINGS: Mild emphysema. No pneumothorax. No pleural effusions. A few bibasilar linear densities con sistent with subsegmental atelectasis. A few punctate calcified granulomas are noted. The central air ways are patent. Small amount of mucoid material within the mid trachea. Moderate calcified plaque wi thin the normal caliber thoracic aorta. No mediastinal hilar lymphadenopathy. Mitral annulus calcific ations are noted. The heart is top normal in size. Normal esophagus. Limited views of the upper abdom en demonstrate a normal liver and spleen. Bilateral renal hypodense lesions favor cysts. Advanced deg enerative changes within the bilateral shoulders. Old fracture seen within the thoracic spine, sternu m, left humeral neck, and ribs. No acute fractures identified within the chest. IMPRESSION: 1. No acute fractures within the chest. 2. Multiple old fractures as described above. 3. Mild emphysema. 4. No pneumothorax. ACT 112: Negative or not required by law. Electronically signed by: Jefe Hewitt M.D. 06/22/2020 8:21 AM
[2020-06-22 08:32] LABS: Alanine Aminotransferase 14 U/L (12-78); Albumin Globulin Ratio 0.7 (0.9-2); Albumin Level 3.4 gm/dl (3.4-5.0); Alkaline Phosphatase 80 U/L (45-117); BUN Creatinine Ratio 58.2 (10-20); Bilirubin,Total 0.7 mg/dl (0.2-1); Blood Urea Nitrogen 76 mg/dl (7-18); Carbon Dioxide 26 mmol/L (21-32); Chloride 107 mmol/L (98-107); Est GFR (African American) 42.3; Est GFR (Non-African American) 36.5; Globulin 4.7 gm/dl (2.5-4.0); Glucose 97 mg/dl (70-99); Sodium 139 mmol/L (136-145); Total Protein 8.1 gm/dl (6.4-8.2); Troponin I < 0.015 ng/ml (0-0.045)
[2020-06-22 08:59] LABS: Potassium 3.8 mmol/L (3.5-5.1)
[2020-06-22] MEDS ORDERED: cefTRIAXone SODIUM 2,000 MG/70 ML BAG IV STA (09:18)
[2020-06-22 09:19] LABS: Prothrombin Time > 90.0 Seconds (9.0-12.0)
[2020-06-22 09:21] LABS: INR > 9.7 (0.9-1.1)
[2020-06-22] MEDS ORDERED: PHYTONADIONE 10 MG in SODIUM CHLORIDE 0.9% 50 ML IV ONE (09:24)
[2020-06-22 09:27] LABS: Appearance Urine Clear (Clear); Bacteria Urine Automated Negative (Negative); Bilirubin Urine Negative (Negative); Blood Urine Negative (Negative); Color Urine Yellow; Epithelial Cell Urine Auto 0-5 /lpf (0-5); Glucose Urine UA Negative (Negative); Ketones Urine Negative (Negative); Leukocyte Esterase Urine Negative (Negative); Nitrite Urine Negative (Negative); Protein Urine Trace (Negative); RBC Urine Automated 0-4 /hpf (0-4); Specific Gravity Urine 1.021 (1.000-1.030); Urobilinogen Urine Negative (Negative); WBC Urine Automated 0 /hpf (0-5)
--- NOTE | 2020-06-22 10:25 | History & Physical Report ---
Date of Service June 22, 2020 Assessment & Plan (1) MARYLOU (acute kidney injury): This is an 85-year-old female who has significant past medical history of chronic atrial fibrillation anticoagulated on warfarin, COPD, HTN, HLD, CKD stage III, hypothyroidism, hard of hearing, Alzheimer's who presents to ED secondary to right-sided low back pain x1 week. Pt with Acute on chronic CKD stage 3 2/2 to pre renal azotemia and dehydration due to poor po intake Admit to tele hold lasix, avoid nephrotoxic agents continue gentle IVF D5 1/[address] Milton at 60cc/hr repeat bmp at 4pm and in a.m. consult marketing specialist baseline cr 0.8-1.0 (2) Weight loss: severe protein-calorie malnutrition pt with 20lb weight loss in 1 month has had decline and has stopped eating/drinking started on remeron 7.5mg yesterday for appetite stimulant/anti depressant consult behavioral health, appreciate their input ST eval to rule out dysphagia (3) Leukocytosis: wbc elevated, may be reactive in setting of dehydration continue IV rocephin empirically until infection ruled out CXR/UA negative, blood cultures ordered (4) Supratherapeutic INR: INR greater than 9.7 Hold warfarin, vitamin K 10 mg given in ED Repeat INR at 4 PM (5) Low back pain at multiple sites: Imaging reveals multiple old compression fractures and kyphosis Likely osteoporosis Lidocaine patch, 1 g Tylenol twice daily, warm compress Consult PT OT Patient is wheelchair-bound (6) Permanent atrial fibrillation: Rate controlled on metoprolol INR supratherapeutic, 10 mg vitamin K given IV No signs or symptoms of bleeding Repeat INR at 4 PM Hold Coumadin (7) Chronic heart failure with preserved ejection fraction: Patient is dry on exam Continue metoprolol, hold Lasix Daily weights, I's and O's Monitor volume status closely (8) COPD (chronic obstructive pulmonary disease): No acute exacerbation Continue Advair, PRN albuterol (9) DVT prophylaxis: INR supratherapeutic Hold warfarin Disposition: Admit to telemetry Follow-up: PCP Dr. Gloria upon discharge/Provider at [facility] Patient was seen and examined in collaboration with Dr. Milton, please see addendum History of Present Illness Chief Complaint: Right-sided low back pain x1 week. Primary Care Provider: [employer] [facility] This is an 85-year-old female who has significant past medical history of chronic atrial fibrillation anticoagulated on warfarin, COPD, HTN, HLD, CKD stage III, hypothyroidism, hard of hearing, Alzheimer's who presents to ED secondary to right-sided low back pain x1 week. Daughter Madison is at bedside. Patient resides at [facility] where she has had limited contact with family. Her daughter last saw her approximately 1 week ago when she took her out to get her hair done and for a car ride. Patient is very hard of hearing and we have to communicate through iPhone notes. She states pain started approximately 1 week ago after she was sitting in her daughter's car and it was very low. Today is the first day her daughter is aware of her complaining of back pain. Pain mostly is on the right side low back, nonradiating, waxes and wanes, rated 7/10, described as, "it hurts." She denies prior symptoms in the past. According to family over the past 1 month she has had a significant decline in weight. She has lost approximately 20 pounds and is, "starving herself to ." Daughter feels she is depressed given the current situation and unable to see family. She is refusing to go to meals. She is wheelchair-bound and has been for the past 2-1/2 years. When I asked patient how she is doing she states, "I feel fine." She denies any fever, chills, sweats, lightheadedness, dizziness, syncope, falls, chest pain, shortness breath, cough, nausea, vomiting, abdominal pain. She was started on Remeron 7.5 mg yesterday for underlying depression and hope to stimulate appetite. At baseline the patient does have decline in memory, but daughter feels today is worse. In ED patient remained hemodynamically stable. She has a notable MARYLOU with BUN 76 and creatinine 1.31, INR greater than 9.7, WBC 13.80. Her urinalysis appears negative for infection. Chest x-ray was no acute abnormality. She underwent CT chest, thoracic spine and lumbar spine which revealed multiple old, healed fractures specifically at T6, severe compression formerly at T8, endplate compression deformity at L1. Severe to space narrowing L5-S1 and old healed fracture at S2. Also noted are multiple bilateral rib fractures that are healed. She does have 5 mm anterior listhesis of L4 on L5. Allergies Allergy/AdvReac Type Severity Reaction Status Date / Time oxycodone Allergy Intermediate DIZZY Verified 12/25/18 01:04 ITCHING tramadol Allergy Intermediate DIZZY Verified 12/25/18 01:04 simvastatin Allergy Mild RASH Verified 12/25/18 01:04 Home Medications Home Medications Medication Instructions Recorded Confirmed Type Ensure 1 btl PO BID 07/11/18 06/22/20 History Systane Balance 1 drp OPB Q4H 07/11/18 06/22/20 History acetaminophen [Tylenol Extra 1,000 mg PO AMPM 07/11/18 06/22/20 History Strength] acetaminophen [Tylenol Extra 1,000 mg PO BID PRN MDD 3000 07/11/18 06/22/20 History Strength] GRAM/24 HOURS albuterol sulfate [Ventolin HFA] 2 puff INHALATION QID PRN 07/11/18 06/22/20 History aspirin 81 mg PO DAILY 07/11/18 06/22/20 History atorvastatin 20 mg PO DAILY 07/11/18 06/22/20 History cholecalciferol (vitamin D3) 1,000 unit PO DAILY 07/11/18 06/22/20 History fluticasone propion-salmeterol 1 inh INHALATION Q12H 07/11/18 06/22/20 History [Advair Diskus] levothyroxine 25 mcg PO DAILYBB 07/11/18 06/22/20 History melatonin 5 mg PO HS 07/11/18 06/22/20 History metoprolol tartrate 100 mg PO BID 07/11/18 06/22/20 History prednisone 10 mg PO DIRECTED PRN 07/11/18 06/22/20 History furosemide [Lasix] 20 mg PO DAILY PRN 12/25/18 06/22/20 History lidocaine HCl [Aspercreme 1 applic TOPICAL TID PRN 12/25/18 06/22/20 History (lidocaine)] warfarin 2.5 mg PO DAILY@16 12/25/18 06/22/20 History azithromycin See Rx Instructions .ROUTE 06/22/20 06/22/20 History .COMPLEX PRN furosemide 20 mg PO DAILY 06/22/20 06/22/20 History mirtazapine 7.5 mg PO HS 06/22/20 06/22/20 History Past Med/Surg History Medical History (Updated 06/22/20 @ 10:43 by Argenis Forrester PA-C) Anemia Atrial fibrillation Chronic kidney disease CKD (chronic kidney disease), stage III COPD (chronic obstructive pulmonary disease) Fall Fracture of head of humerus HLD (hyperlipidemia) HTN (hypertension) HTN, goal to be determined Hypothyroidism Osteoporosis Surgical History (Updated 06/22/20 @ 10:32 by Argenis Forrester PA-C) History of left-sided carotid endarterectomy Family History (Updated 06/22/20 @ 10:33 by Argenis Forrester PA-C) Brother Cancer Lung cancer Other No pertinent family history Social History (Updated 06/22/20 @ 10:34 by Argenis Forrester PA-C) Smoking Status: Former smoker packs per day: 1; Years Smoked: 44; Hx Alcohol Use: No Hx Substance Use: No Preferred Language: Bruneian Communication Ability: Impaired Communication Ability Comment: Hard of hearing Visual Impairment: No Limitations Hearing Ability: 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 of Hearing 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: No Beliefs That Will Affect Care: None marital status: / Current Living Situation: Personal Care Facility Current Living Situation Comment: [facility] Feels Safe at Home: Yes Review of Systems Review of Systems: All systems reviewed & are unremarkable except as noted in HPI & below Physical Exam Physical Exam: Constitutional: Thin, frail, elderly female, hard of hearing, vitals as above, NAD, sitting up in bed, pleasant, conversing easily Head: Normocephalic, Atraumatic Eyes: PERRL, conjunctivae normal, anicteric sclerae ENMT: external ear and nose normal, oropharynx normal, mucous membranes dry Neck: trachea midline, no thyromegaly normal visual inspection Respiratory: normal respiratory effort, lungs clear to auscultation, no wheeze, rales, rhonchi. Normal insp/exp effort, no accessory muscle use Cardiovascular: Irregular rate, irregular rhythm, no murmur, no edema Vessels: no JVD or carotid bruit Chest: normal inspection of chest Abdomen: normal bowel sounds, soft, nontender, no hepatosplenomegaly Musculoskeletal: no cyanosis or clubbing, extremities motor strength 5/5 Skin: Numerous ecchymoses to anterior surfaces of bilateral lower extremities and dorsal surfaces of bilateral upper extremities,warm and dry moderate turgor Neurologic: PERRL, EOMI, accommodation nl, no face palsy, no dysarthria CN's II-XI intact bilaterally and moves all extremities Psychiatric: A+Ox3 to basics, dysthymic affect Lymphatic: no cervical or axillary lymphadenopathy : Torres catheter in place draining clear yellow urine Results & Data Results & Data ([facility]) Vital Signs (Past 12 Hours) Vital Signs Temp Pulse Resp BP Pulse Ox 06/22/20 07:26 36.4 C L 99 H 12 149/81 H 98 Laboratory Results Short CBC 06/22/20 Range/Units 07:20 WBC 13.80 H (4.8-10.8) K/uL Hgb 15.3 (12.0-16.0) g/dL Hct 46.2 (37-47) % Plt Count 224 (130-400) K/uL BMP 06/22/20 06/22/20 07:20 08:32 Sodium 139 Potassium 3.8 Chloride 107 Carbon Dioxide 26 BUN 76 H Creatinine 1.31 H Glucose 97 Calcium 10.0 Cardiac Enzymes 06/22/20 06/22/20 Range/Units 07:20 08:32 Total Creatine Kinase 34 (26-192) U/L Troponin I < 0.015 (0-0.045) ng/ml Liver Function 06/22/20 06/22/20 Range/Units 07:20 08:32 Total Bilirubin 0.7 (0.2-1) mg/dl AST 18 (15-37) U/L ALT 14 (12-78) U/L Alkaline Phosphatase 80 (45-117) U/L Albumin 3.4 (3.4-5.0) gm/dl Urine 06/22/20 Range/Units 09:15 Urine Color Yellow Urine Appearance Clear (Clear) Urine pH 5.0 (4.5-7.5) Ur Specific Thorp 1.021 (1.000-1.030) Urine Protein Trace H (Negative) Urine Glucose (UA) Negative (Negative) Diagnostic Findings CT CHEST: IMPRESSION: 1. No acute fractures within the chest. 2. Multiple old fractures as described above. 3. Mild emphysema. 4. No pneumothorax. Thoracic Spine CT: FINDINGS: Mild anterior wedge-shaped deformity at T6, a severe compression deformity at T8, and a moderate superior endplate compression deformity at L1 remain unchanged. Therefore, these are considered to be old. No acute fractures within the thoracic or lumbar spine. 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 Mild degenerative disc disease throughout the majority of the thoracic spine. There is also mild disc space narrowing at L1-L2 and L4-L5. Severe disc space narrowing at L5-S1. Moderate facet degenerative changes within the lumbar spine. Old, healed fracture at S2. There is also an old, healed sternal fracture. Multiple old, healed bilateral rib fractures. Mild central canal narrowing at L1 due to the mild retropulsion of the old compression deformity. Paravertebral soft tissues within the thoracic and lumbar spine are intact. There is 5 mm of anterolisthesis of L4 on L5. IMPRESSION: 1. Multiple old, healed fractures within the thoracic and lumbar spine as described above. 2. No acute fractures identified. Lumbar Spine: IMPRESSION: 1. Multiple old, healed fractures within the thoracic and lumbar spine as described above. 2. No acute fractures identified. CXR:IMPRESSION: No active disease in the chest. Medications Administered Discontinued Medications Acetaminophen (Ofirmev) 1,000 mg in 100 mls @ 400 mls/hr IV NOW STA Stop: 06/22/20 07:21 Last Infusion: 06/22/20 08:30 Dose: 0 mls/hr Documented by: [id number] Admin: 06/22/20 08:11 Dose: 400 mls/hr Documented by: [id number] Sodium Chloride (Nss 1000ml) 500 mls @ 999 mls/hr IV .Q31M ONE Stop: 06/22/20 07:40 Last Infusion: 06/22/20 08:45 Dose: 0 mls/hr Documented by: [id number] Admin: 06/22/20 08:11 Dose: 999 mls/hr Documented by: [id number] Sodium Chloride (Nss 1000ml) 500 mls @ 999 mls/hr IV .Q31M ONE Stop: 06/22/20 09:48 Last Admin: 06/22/20 10:14 Dose: 999 mls/hr Documented by: [id number] Phytonadione 10 mg/ Sodium (Chloride) 51 mls @ 102 mls/hr IV ONE ONE Stop: 06/22/20 09:53 Last Infusion: 06/22/20 10:11 Dose: 0 mls/hr Documented by: [id number] Admin: 06/22/20 09:41 Dose: 102 mls/hr Documented by: [id number] Lidocaine (Lidocaine 5% 1 Patch) 1 patch TD NOW STA Stop: 06/22/20 07:08 Last Admin: 06/22/20 08:11 Dose: 1 patch Documented by: [id number] ECG Rate (beats per minute): 94 Rhythm: atrial fibrillation Code Status & VTE Plan Code Status DNR/DNI VTE Prophylaxis Plan VTE Prophylaxis will be ordered: No Supervising Physician Co-Signing Physician Notes I, Dr. Izaiah Milton, have seen and examined the patient with physician general surgery physician assistant and agree with the assessment and plan as above and would like to comment that Physical Exam: general: no acute distress, thin, auditory impairments as per niece Heart: regular rate Lungs: regular breathing, no crackles audible, no wheezing abdomen: soft, nontender, positive bowel sounds Extremities: thin, niece reports that baseline the patient moves by wheelchair but can transfer herself on her own from wheelchair to toilet Assessment and Plan -Supratherapeutic INR on admission likely because of poor oral intake. patient's niece reports patient appetite has decreased over time and attributes this to medication from antibiotic eye drops which patient is no longer taking for several days. reported weight loss -vitamin K given in the ED, will trend INR. -give IV fluids with dextrose -speech and swallow service to evaluate whether poor appetite from any swallowing issues -auditory impairments makes assessment of mood to be difficult although her primary care recently prescribed Remeron, continue, and obtain inpatient behavioral health consult to follow -TSH normal. follow B12 levels. and folic acid levels. draw RPR levels in case any reversible causes of dementia as cause of poor oral intake -UA normal, follow blood cultures in case any underlying infectious process -Niece Madison [phone] affirms code Status is DNR/DNI -agree with other assessment and plans as documented by physician general surgery physician assistant
--- NOTE | 2020-06-22 10:54 | CT Scan Report ---
CT head/brain wo con CLINICAL HISTORY: elevated INR HEADACHE. EVALUATE FOR HEMORRHAGE COMPARISON STUDY: July 11, 2018 TECHNIQUE: Axial CT of the brain is performed from the vertex to the skull base. IV contrast was not administered for this examination. A dose lowering technique was utilized adhering to the principles of ALARA. CT DOSE: 655.73 mGy.cm FINDINGS: No intra or extra-axial mass lesions are visualized. There is no CT evidence of acute cortical infarc tion. There is no evidence of midline shift. There is no acute hemorrhage. No calvarial fractures ar e visualized. There are patchy white matter hypodensities likely on a small vessel basis. There is no evidence of pathologic ventricular dilatation. There is right maxillary sinus wall thickening. There is a chronic left mastoid effusion. IMPRESSION: No acute intracranial findings ACT 112: Negative or not required by law. Electronically signed by: James Choi M.D. 06/22/2020 10:52 AM
[2020-06-22] MEDS ORDERED: ONDANSETRON INJ 2 MG/ML 2 ML VIAL ONE (11:20)
[2020-06-22 12:04] LABS: Phosphorus 3.8 mg/dl (2.5-4.9)
[2020-06-22] MEDS ORDERED: MULTI-VITAMIN INFUSION 10 ML, THIAMINE HCL 100 MG, FOLIC ACID 1 MG in SODIUM CHLORIDE 0... IV ONE (12:30)
[2020-06-22] MEDS ORDERED: ALUMINUM/MAGNESIUM SUSP 30 ML UDC PO PRN (12:58)
[2020-06-22] MEDS ORDERED: ALBUTEROL HFA 8 GM INHALER INH PRN (12:58)
[2020-06-22] MEDS ORDERED: ONDANSETRON INJ 2 MG/ML 2 ML VIAL IV PRN (12:58)
[2020-06-22] MEDS ORDERED: MAGNESIUM HYDROXIDE SUSP 30 ML UDC PO PRN (12:58)
[2020-06-22] MEDS ORDERED: ACETAMINOPHEN 325 MG TAB PO PRN (12:58)
[2020-06-22] MEDS ORDERED: PNEUMOCOCCAL POLYSACCHARIDES 25 MCG/0.5 ML VIAL/SYR IM ONE (13:58)
[2020-06-22] MEDS ORDERED: PNEUMOCOCCAL ADMINISTRATION CHARGE ONE (13:58)
--- NOTE | 2020-06-22 15:04 | Electrocardiogram Report ---
Test Reason : Blood Pressure : / mmHG Vent. Rate : 094 BPM Atrial Rate : 105 BPM P-R Int : 000 ms QRS Dur : 086 ms QT Int : 350 ms P-R-T Axes : 000 -59 056 degrees QTc Int : 437 ms Atrial fibrillation Left axis deviation Cannot rule out Anterior infarct (cited on or before 22-JUN-2020) Abnormal ECG When compared with ECG of 25-DEC-2018 00:29, Nonspecific T wave abnormality now evident in Anterior leads Confirmed by Efraín Hernandez ([id number]) on 06/22/2020 3:03:40 PM Referred By: [facility] Confirmed By:Efraín Hernandez
[2020-06-22] MEDS: D5W AND 1/2NSS 1,000 ML IV SCH (15:47)
[2020-06-22 16:20] LABS: Basophils # (auto) 0.01 K/uL (0-0.2); Basophils % (auto) 0.1 %; Eosinophils # (auto) 0.02 K/uL (0-0.5); Eosinophils % (auto) 0.2 %; Hematocrit (blood only) 36.9 % (37-47); Hemoglobin 12.2 g/dL (12.0-16.0); INR 2.3 (0.9-1.1); Immature Granulocytes # (auto) 0.01 K/uL (0.00-0.02); Immature Granulocytes % (auto) 0.1 %; Lymphocytes # (auto) 0.89 K/uL (1.2-3.4); Lymphocytes % (auto) 9.5 %; Mean Corpuscular Hemoglobin 31.7 pg (25-34); Mean Corpuscular Hgb Conc 33.1 g/dL (32-36); Mean Corpuscular Volume 95.8 fL (80-100); Mean Platelet Volume 9.9 fL (7.4-10.4); Monocytes # (auto) 0.49 K/uL (0.11-0.59); Monocytes % (auto) 5.3 %; Neutrophils # (auto) 7.91 K/uL (1.4-6.5); Neutrophils % (auto) 84.8 %; Platelet Count 161 K/uL (130-400); RDW Standard Deviation 54.6 fL (36.4-46.3); Red Blood Count 3.85 M/uL (4.2-5.4); White Blood Count 9.33 K/uL (4.8-10.8)
[2020-06-22 16:27] LABS: BUN Creatinine Ratio 61.6 (10-20); Calcium 8.6 mg/dl (8.5-10.1); Creatinine Clr Calc Pharmacy 28.8 ml/min; Est GFR (African American) 58.7; Est GFR (Non-African American) 50.6; Potassium 3.8 mmol/L (3.5-5.1)
[2020-06-22] MEDS: MIRTAZAPINE TAB 15 MG TAB PO SCH (21:06)
[2020-06-22] MEDS: METOPROLOL TARTRATE 100 MG TAB PO SCH (21:07)
[2020-06-22] MEDS: FLUTICASONE/VILANTEROL 100/25MCG 14 PUFFS/INHALER INH SCH (21:20)
[2020-06-22] MEDS: ACETAMINOPHEN 500 MG TAB PO SCH (21:21)
[2020-06-23 06:19] LABS: Hematocrit (blood only) 37.3 % (37-47); Hemoglobin 12.1 g/dL (12.0-16.0); Mean Corpuscular Hemoglobin 31.9 pg (25-34); Mean Corpuscular Hgb Conc 32.4 g/dL (32-36); Mean Corpuscular Volume 98.4 fL (80-100); Mean Platelet Volume 10.1 fL (7.4-10.4); Platelet Count 168 K/uL (130-400); RDW Coefficient of Variation 16.4 % (11.5-14.5); RDW Standard Deviation 56.3 fL (36.4-46.3); Red Blood Count 3.79 M/uL (4.2-5.4); White Blood Count 8.68 K/uL (4.8-10.8)
[2020-06-23 06:29] LABS: INR 1.4 (0.9-1.1); Prothrombin Time 14.1 Seconds (9.0-12.0)
[2020-06-23] MEDS: LEVOTHYROXINE SODIUM 25 MCG TABLET PO SCH (06:46)
[2020-06-23 06:56] LABS: Albumin Level 2.4 gm/dl (3.4-5.0); BUN Creatinine Ratio 53.7 (10-20); Est GFR (African American) 66.6; Est GFR (Non-African American) 57.5; Potassium 3.6 mmol/L (3.5-5.1)
[2020-06-23 07:05] LABS: Albumin Globulin Ratio 0.7 (0.9-2); Bilirubin,Total 0.7 mg/dl (0.2-1); Globulin 3.4 gm/dl (2.5-4.0); Total Protein 5.8 gm/dl (6.4-8.2)
[2020-06-23] MEDS: D5W AND 1/2NSS 1,000 ML IV SCH (09:07)
[2020-06-23] MEDS: CHOLECALCIFEROL 1,000 UNITS 25 MCG TAB PO SCH (09:08)
[2020-06-23] MEDS: METOPROLOL TARTRATE 100 MG TAB PO SCH ×2 (09:08→20:59)
[2020-06-23] MEDS: ASPIRIN 81 MG ECTAB PO SCH (09:08)
[2020-06-23] MEDS: LIDOCAINE 5% 1 PATCH TD SCH (09:08)
[2020-06-23] MEDS: ATORVASTATIN 20 MG TAB PO SCH (09:09)
[2020-06-23] MEDS: ACETAMINOPHEN 500 MG TAB PO SCH (09:10)
--- NOTE | 2020-06-23 11:28 | Psychiatric Consultation ---
Date of Consultation June 23, 2020 Impression / Recommendations Impression 85 yo female with prior dx of cognitive disorder (Alzheimer's dementia) presents with weight loss in personal care facility, just started a trial of Remeron for suspected depression due to decreased PO intake resulting in dehydration/admission. Plan: I suspect patient's decreased PO intake may be in part to progression of her dementia, needing more prompting around meals/PO. Defer to medicine/sw on level of nursing care needed, encourage to continue medical work up for dysphagia/etc. Trial of Remeron certainly appropriate as so difficult to assess, I would be hesitant to increase the dose as she seems quite groggy this am at 10 am. I'd suggest 7.5 mg for at least 1 week prior to increase to 15 mg Remeron (assuming sedation resolves). If no interval improvement for 4 weeks at 15 mg Remeron, feel low yield to do any further titration and would d/c at that point. Psych History Identifying Data Ms. Jay is an 85 yo female who was admitted 06/22 for dehydration and weight loss from [facility]. Consultation is somewhat limited as she is extremely hard of hearing. Chief Complaint "am I on the roof?"--referring to the roof top she can see from her 2nd floor window. History of Present Illness patient has not been eating well, concern for depression with advancing dementia and limited ability to communicate with 20 lb weight loss. No reported agitation or aggression. No reported modi. No statements re: SI. She is unable to complete a depression rating scale. Past Psychiatric History Previous Psych History: none previously documented, will obtain collateral hx from family contact via liaison prn. Allergies Allergy/AdvReac Type Severity Reaction Status Date / Time oxycodone Allergy Intermediate DIZZY Verified 12/25/18 01:04 ITCHING tramadol Allergy Intermediate DIZZY Verified 12/25/18 01:04 simvastatin Allergy Mild RASH Verified 12/25/18 01:04 Home Medications Home Medications Medication Instructions Recorded Confirmed Type Ensure 1 btl PO BID 07/11/18 06/22/20 History Systane Balance 1 drp OPB Q4H 07/11/18 06/22/20 History acetaminophen [Tylenol Extra 1,000 mg PO AMPM 07/11/18 06/22/20 History Strength] acetaminophen [Tylenol Extra 1,000 mg PO BID PRN MDD 3000 07/11/18 06/22/20 History Strength] GRAM/24 HOURS albuterol sulfate [Ventolin HFA] 2 puff INHALATION QID PRN 07/11/18 06/22/20 History aspirin 81 mg PO DAILY 07/11/18 06/22/20 History atorvastatin 20 mg PO DAILY 07/11/18 06/22/20 History cholecalciferol (vitamin D3) 1,000 unit PO DAILY 07/11/18 06/22/20 History fluticasone propion-salmeterol 1 inh INHALATION Q12H 07/11/18 06/22/20 History [Advair Diskus] levothyroxine 25 mcg PO DAILYBB 07/11/18 06/22/20 History melatonin 5 mg PO HS 07/11/18 06/22/20 History metoprolol tartrate 100 mg PO BID 07/11/18 06/22/20 History prednisone 10 mg PO DIRECTED PRN 07/11/18 06/22/20 History furosemide [Lasix] 20 mg PO DAILY PRN 12/25/18 06/22/20 History lidocaine HCl [Aspercreme 1 applic TOPICAL TID PRN 12/25/18 06/22/20 History (lidocaine)] warfarin 2.5 mg PO DAILY@16 12/25/18 06/22/20 History azithromycin See Rx Instructions .ROUTE 06/22/20 06/22/20 History .COMPLEX PRN furosemide 20 mg PO DAILY 06/22/20 06/22/20 History mirtazapine 7.5 mg PO HS 06/22/20 06/22/20 History Personal History Living Arrangements: Personal Care Facility Beliefs That Will Affect Care: None Patient History Medical History Anemia Atrial fibrillation Chronic kidney disease CKD (chronic kidney disease), stage III COPD (chronic obstructive pulmonary disease) Fall Fracture of head of humerus HLD (hyperlipidemia) HTN (hypertension) HTN, goal to be determined Hypothyroidism Osteoporosis Surgical History History of left-sided carotid endarterectomy Family History Brother Cancer Lung cancer Other No pertinent family history Social History Smoking Status: Former smoker packs per day: 1; Years Smoked: 44; Second Hand Exposure: No; Do You Dip or Chew Tobacco: No; Tobacco Cessation Education Requested by Patient: No Hx Alcohol Use: No Hx Substance Use: No Preferred Language: [place] Communication Ability: Impaired Communication Ability Comment: FANTA, uses text to speech on niece's IPhone to communicate Visual Impairment: No Limitations Hearing Ability: Hard of Hearing Barmaid Required: No Beliefs That Will Affect Care: None marital status: / Current Living Situation: Personal Care Facility Current Living Situation Comment: [facility] Other Information That Helps Us Care for You: No Feels Safe at Home: Yes Safety Concerns: Feels Safe At This Time Physical Exam Psychiatric: very tired in appearance Apperance: appropriately groomed Eye Contact: + poor eye contact in bed speech is non-spontaneous, rote Affect: + blunted affect Thought Process: + concrete thought process Suicidal Thoughts: denies suicidal thoughts did not appear to be responding to internal stimuli Cognition: + attention not intact and + language not intact Insight: + poor insight Vital Signs (Past 24 Hours): Last Vital Signs Temp 36.5 C 06/23/20 06:56 Pulse 82 06/23/20 07:38 Resp 18 06/23/20 06:56 BP 153/81 H 06/23/20 06:56 Pulse Ox 92 06/23/20 06:56 Review of Systems Unobtainable due to cognitive status Results & Data (PSY) Medications Administered Acetaminophen (Acetaminophen 500 Mg Tab) 1,000 mg PO BID [facility] Stop: 07/22/20 20:59 Last Admin: 06/23/20 09:10 Dose: 1,000 mg Documented by: [id number] Admin: 06/22/20 21:21 Dose: 1,000 mg Documented by: [id number] Aspirin (Aspirin 81 Mg Ectab) 81 mg PO DAILY [facility] Stop: 07/23/20 08:59 Last Admin: 06/23/20 09:08 Dose: 81 mg Documented by: [id number] Atorvastatin Calcium (Atorvastatin 20 Mg Tab) 20 mg PO DAILY [facility] Stop: 07/23/20 08:59 Last Admin: 06/23/20 09:09 Dose: 20 mg Documented by: [id number] Fluticasone/Vilanterol (Fluticasone/Vilanterol 100/25mcg 14 Puffs/Inhaler) 1 puffs INH HS [facility] Stop: 07/22/20 20:59 Last Admin: 06/22/20 21:20 Dose: 1 puffs Documented by: [id number] Dextrose/Sodium Chloride (D5w And 1/2nss) 1,000 mls @ 60 mls/hr IV .[id number] [facility] Stop: 07/22/20 13:29 Last Admin: 06/23/20 09:07 Dose: 60 mls/hr Documented by: [id number] Infusion: 06/23/20 08:28 Dose: 60 mls/hr Documented by: [id number] Admin: 06/22/20 15:47 Dose: 60 mls/hr Documented by: [id number] Levothyroxine Sodium (Levothyroxine Sodium 25 Mcg Tablet) [facility]: 07/23/20 06:29 Last Admin: 06/23/20 06:46 Dose: 25 mcg Documented by: [id number] Lidocaine (Lidocaine 5% 1 Patch) 1 patch TD QAM [facility] Stop: 07/23/20 08:59 Last Admin: 06/23/20 09:08 Dose: 1 patch Documented by: [id number] Metoprolol Tartrate (Metoprolol Tartrate 100 Mg Tab) 100 mg PO BID [facility] Stop: 07/22/20 20:59 Last Admin: 06/23/20 09:08 Dose: 100 mg Documented by: [id number] Admin: 06/22/20 21:07 Dose: 100 mg Documented by: [id number] Mirtazapine (Mirtazapine Tab 15 Mg Tab) 7.5 mg PO [facility] Stop: 07/22/20 20:59 Last Admin: 06/22/20 21:06 Dose: 7.5 mg Documented by: [id number] Miscellaneous (Systane Balance ~ Order Awaiting Action) 1 ea N/A QS [facility] Stop: 07/22/20 15:59 Last Admin: 06/23/20 07:17 Dose: Not Given Documented by: [id number] Admin: 06/22/20 23:43 Dose: Not Given Documented by: [id number] Admin: 06/22/20 15:59 Dose: Not Given Documented by: [id number] Miscellaneous (Remove Lidoderm Patch) 1 ea N/A DAILY@2100 [facility] Stop: 07/22/20 20:59 Last Admin: 06/22/20 21:20 Dose: 1 ea Documented by: [id number] Vitamin D (Cholecalciferol 1,000 Units 25 Mcg Tab) 1,000 units PO DAILY [facility] Stop: 07/23/20 08:59 Last Admin: 06/23/20 09:08 Dose: 1,000 units Documented by: [id number] Coding Level of Care Code 58226 U Intl Hosp Care Lvl 2
--- NOTE | 2020-06-23 12:15 | Hospitalist Progress Note ---
Date of Service June 23, 2020 Assessment & Plan (1) MARYLOU (acute kidney injury): -admission creatinine of 1.31 with the acute kidney injury likely from dehydration as outpatient from poor oral intake -creatinine normalized after IV fluids on this admission (2) Leukocytosis: -admission WBC of 12,000 most likely related to dehydration -improved with IV fluids -WBC normalized on 06/23/2020 -admission UA negative, admission CXR with no pneumonia -empirically on ceftriaxone daily which can be stopped if admission blood cultures returns as no growth (3) Weight loss: severe protein-calorie malnutrition -pt with 20lb weight loss in 1 month and correlated with patient not eating or drinking enough when at personal [facility]; Supratherapeutic INR on admission likely because of poor oral intake. patient's niece reports patient appetite has decreased over time and attributes this to medication from antibiotic eye drops which patient is no longer taking for several days -continue Mirtazapine 7.5 mg qHS which was recently prescribed by her outpatient doctors as appetite stimulant/anti depressant -She was given banana bag, Iv fluids with dextrose on admission -she does not have have abnormal TSH, serum folic acid levels, or serum B12 levels. RPR is pending -unclear whether there is any dementia involved, but patient ate her breakfast on 06/23/2020 without difficulty and on her own volition. will give BOOST Supplements with meals (4) Supratherapeutic INR: Supratherapeutic INR on admission on 06/23/2020 -on metoprolol tartrate 100 mg BID for rate control of atrial fibrillation, continue -06/22/2020 with INR greater than 9.7, was given 10 mg IV vitamin K and INR downtrended to 2.3 by 06/23/2020 afternoon -INR subtherapeutic as 1.4 on 06/23/2020 AM labs -06/23/2020: Patient at the breakfast at the bedside on her own and finished most of the food. She has her amplifier for her ears and which helps with communication. Her niece patient's niece Madison [phone] at the bedside and after discussion with her and patient, the wishes are for patient avoid further systemic anticoagulation because maintaining the INR as outpatient has been very difficult to maintain in correct levels of INR of 2 to 3 and that patient is not an ideal candidate for NOAC given age and light body weight, also affirmed that no wished to being on heparin IV as a temporary blood thinner while inpatient, stroke risks were discussed and patient's niece who is medical decision maker affirms understanding of risk of stroke off blood thinners (5) Permanent atrial fibrillation: Chronic atrial fibrillation -management as above (6) Chronic heart failure with preserved ejection fraction: -Continue metoprolol -hold home dose Lasix for now (7) COPD (chronic obstructive pulmonary disease): -Continue Advair, PRN albuterol (8) Low back pain at multiple sites: -admission CT scan of lumbar and thoracic spine: Multiple old, healed fractures within the thoracic and lumbar spine -at baseline, patient is reportedly to be wheel chair bound but can usually transfer herself on and off commode at [facility]. -PT/OT evaluations -supportive care and prn pain medications if back pain exacerbation -currently has brothers while in the hospital until patient demonstrates more mobility with PT/OT (9) DVT prophylaxis: -SCDs patient's niece Madison [phone] affirms code Status is DNR/DNI Admission and Anticipated Discharge Date Admission Date: June 22, 2020 Subjective Patient at the breakfast at the bedside on her own and finished most of the food. She has her amplifier for her ears and which helps with communication. Her niece patient's niece Madison [phone] at the bedside and after discussion with her and patient, the wishes are for patient avoid further systemic anticoagulation because maintaining the INR as outpatient has been very difficult to maintain in correct levels of INR of 2 to 3 and that patient is not an ideal candidate for NOAC given age and light body weight, also affirmed that no wished to being on heparin IV as a temporary blood thinner while inpatient, stroke risks were discussed and patient's niece who is medical decision maker affirms understanding of risk of stroke off blood thinners no fever. no acute pain or symptoms reported by patient. breathing on room air. no respiratory distress . Review of Systems Review of Systems: All systems reviewed & are unremarkable except as noted in Subjective Physical Exam Constitutional: cooperative Eyes: PERRL, conjunctivae normal, anicteric sclerae EOM intact bilaterally ENMT: external ear and nose normal, oropharynx normal Ears: + hearing impairment Neck: trachea midline, no thyromegaly normal visual inspection Respiratory: normal respiratory effort Cardiovascular: Rate/Rhythm: regular rate and + irregularly irregular Gastrointestinal (Abdomen): Inspection/Auscultation: normal bowel sounds Percussion/Palpation: abdomen soft Musculoskeletal: Head/Neck/Chest: normocephalic and head atraumatic Neurologic: PERRL, EOMI, accommodation nl, no face palsy, no dysarthria Psychiatric: Orientation: alert and cooperative Genitourinary: + bladder abnormality (brothers) Results & Data Results & Data ([facility]) Vital Signs (Past 12 Hours) Vital Signs Temp Pulse Pulse Resp BP Pulse Ox 06/23/20 11:24 36.9 C 73 18 101/56 L 99 06/23/20 07:38 82 06/23/20 06:56 36.5 C 77 18 153/81 H 92 06/23/20 04:11 36.9 C 78 16 127/62 96 (1) Leukocytosis Leukocytosis type: unspecified Qualified Code(s): D72.829 - Elevated white blood cell count, unspecified
[2020-06-23] MEDS ORDERED: ACETAMINOPHEN 325 MG TAB PO PRN (12:29)
[2020-06-23] MEDS: cefTRIAXone SODIUM 1,000 MG in DEXTROSE 5% 50 ML IV SCH (13:47)
[2020-06-23] MEDS: ARTIFICIAL TEARS OPB SCH ×2 (16:53→20:58)
[2020-06-23] MEDS: FLUTICASONE/VILANTEROL 100/25MCG 14 PUFFS/INHALER INH SCH (20:59)
[2020-06-23] MEDS: MIRTAZAPINE TAB 15 MG TAB PO SCH (20:59)
[2020-06-24] MEDS: LEVOTHYROXINE SODIUM 25 MCG TABLET PO SCH (06:08)
[2020-06-24] MEDS: ARTIFICIAL TEARS OPB SCH ×2 (08:47→11:20)
[2020-06-24] MEDS: ATORVASTATIN 20 MG TAB PO SCH (08:51)
[2020-06-24] MEDS: METOPROLOL TARTRATE 100 MG TAB PO SCH (08:51)
[2020-06-24] MEDS: CHOLECALCIFEROL 1,000 UNITS 25 MCG TAB PO SCH (08:51)
[2020-06-24] MEDS: LIDOCAINE 5% 1 PATCH TD SCH (08:51)
[2020-06-24] MEDS: ASPIRIN 81 MG ECTAB PO SCH (08:51)
[2020-06-24] MEDS ORDERED: Nursing to Pharmacy Communication SCH (09:15)
--- NOTE | 2020-06-24 09:21 | Hospitalist Progress Note ---
Date of Service June 24, 2020 Assessment & Plan (1) MARYLOU (acute kidney injury): -admission creatinine of 1.31 with the acute kidney injury likely from dehydration as outpatient from poor oral intake -creatinine normalized after IV fluids on this admission (2) Leukocytosis: -admission WBC of 12,000 most likely related to dehydration -improved with IV fluids -WBC normalized on 06/23/2020 -admission UA negative, admission CXR with no pneumonia -06/24/2020: admission blood cultures from 06/22/2020 with no growth to date and 3rd daily dose of ceftriaxone to be completed before patient is discharged under care of her niece to take her back to personal f[facility]. housing case manager notified (3) Weight loss: severe protein-calorie malnutrition -pt with 20lb weight loss in 1 month and correlated with patient not eating or drinking enough when at personal [facility]; Supratherapeutic INR on admission likely because of poor oral intake. patient's niece reports patient appetite has decreased over time and attributes this to medication from antibiotic eye drops which patient is no longer taking for several days -continue Mirtazapine 7.5 mg qHS which was recently prescribed by her outpatient doctors as appetite stimulant/anti depressant -She was given banana bag, Iv fluids with dextrose on admission -she does not have have abnormal TSH, serum folic acid levels, or serum B12 levels. RPR is pending -unclear whether there is any dementia involved, but patient ate her breakfast on 06/23/2020 without difficulty and on her own volition. BOOST Supplements ordered with meals but it program manager reports that patient declined because she does not like the taste -06/24/2020: patient continues to eat the meals; place instructions by psychiatry Dr. Mirian Blancas on 06/23/2020 on how to titrate up Remeron if needed as outpatient in discharge instructions (4) Supratherapeutic INR: Supratherapeutic INR on admission on 06/23/2020 -on metoprolol tartrate 100 mg BID for rate control of atrial fibrillation, continue -06/22/2020 with INR greater than 9.7, was given 10 mg IV vitamin K and INR downtrended to 2.3 by 06/23/2020 afternoon -INR subtherapeutic as 1.4 on 06/23/2020 AM labs -06/23/2020: Patient at the breakfast at the bedside on her own and finished most of the food. She has her amplifier for her ears and which helps with communication. Her niece patient's niece Madsion [phone] at the bedside and after discussion with her and patient, the wishes are for patient avoid further systemic anticoagulation because maintaining the INR as outpatient has been very difficult to maintain in correct levels of INR of 2 to 3 and that patient is not an ideal candidate for NOAC given age and light body weight, also affirmed that no wished to being on heparin IV as a temporary blood thinner while inpatient, stroke risks were discussed and patient's niece who is medical decision maker affirms understanding of risk of stroke off blood thinners (5) Permanent atrial fibrillation: Chronic atrial fibrillation -management as above (6) Chronic heart failure with preserved ejection fraction: -Continue metoprolol -Lasix was held in patient, changes to discharge medications includes reducing Lasix frequency on discharge from home dose 20 mg daily to 20 mg every other day in order to reduce risk of dehydration new furosemide prescription sent electronically to [facility] [address] [place] [address] (7) COPD (chronic obstructive pulmonary disease): -Continue Advair, PRN albuterol (8) Low back pain at multiple sites: -admission CT scan of lumbar and thoracic spine: Multiple old, healed fractures within the thoracic and lumbar spine -at baseline, patient is reportedly to be wheel chair bound but can usually transfer herself on and off commode at [facility] personal care [facility]. -supportive care and prn pain medications if back pain exacerbation were given -currently has brothers while in the hospital which is to be removed on 06/24/2020 (9) DVT prophylaxis: -SCDs while in hospital patient's niece Madison [phone] affirms code Status is DNR/DNI Admission and Anticipated Discharge Date Admission Date: June 22, 2020 Subjective Patient ate the meals for breakfast. She denies any acute pain. no shortness of breath. breathing on room air. Patient reports she feels "fine." admission blood cultures from 06/22/2020 with no growth to date and 3rd daily dose of ceftriaxone to be completed before patient is discharged under care of her niece to take her back to personal f[facility]. housing case manager notified Review of Systems Review of Systems: All systems reviewed & are unremarkable except as noted in Subjective Physical Exam Constitutional: cooperative Eyes: PERRL, conjunctivae normal, anicteric sclerae EOM intact bilaterally ENMT: external ear and nose normal, oropharynx normal Ears: + hearing impairment Neck: trachea midline, no thyromegaly normal visual inspection Respiratory: normal respiratory effort Cardiovascular: Rate/Rhythm: regular rate and + irregularly irregular Gastrointestinal (Abdomen): Inspection/Auscultation: normal bowel sounds Percussion/Palpation: abdomen soft Musculoskeletal: Head/Neck/Chest: normocephalic and head atraumatic Neurologic: PERRL, EOMI, accommodation nl, no face palsy, no dysarthria Psychiatric: Orientation: alert and cooperative Genitourinary: + bladder abnormality (brothers) Results & Data Results & Data ([facility]) Vital Signs (Past 12 Hours) Vital Signs Temp Pulse Pulse Resp BP Pulse Ox 06/24/20 07:04 36.3 C L 86 18 135/84 95 06/24/20 03:17 36.5 C 76 16 123/61 97 06/24/20 00:30 83 06/23/20 23:03 36.5 C 76 18 136/64 97 (1) Leukocytosis Leukocytosis type: unspecified Qualified Code(s): D72.829 - Elevated white blood cell count, unspecified
--- NOTE | 2020-06-24 09:32 | Discharge Summary ---
Date of Service June 24, 2020 Admission HPI Per Admitting Provider This is an 85-year-old female who has significant past medical history of chronic atrial fibrillation anticoagulated on warfarin, COPD, HTN, HLD, CKD stage III, hypothyroidism, hard of hearing, Alzheimer's who presents to ED secondary to right-sided low back pain x1 week. Daughter Madison is at bedside. Patient resides at [facility] where she has had limited contact with family. Her daughter last saw her approximately 1 week ago when she took her out to get her hair done and for a car ride. Patient is very hard of hearing and we have to communicate through iPhone notes. She states pain started approximately 1 week ago after she was sitting in her daughter's car and it was very low. Today is the first day her daughter is aware of her complaining of back pain. Pain mostly is on the right side low back, nonradiating, waxes and wanes, rated 7/10, described as, "it hurts." She denies prior symptoms in the past. According to family over the past 1 month she has had a significant decline in weight. She has lost approximately 20 pounds and is, "starving herself to ." Daughter feels she is depressed given the current situation and unable to see family. She is refusing to go to meals. She is wheelchair-bound and has been for the past 2-1/2 years. When I asked patient how she is doing she states, "I feel fine." She denies any fever, chills, sweats, lightheadedness, dizziness, syncope, falls, chest pain, shortness breath, cough, nausea, vomiting, abdominal pain. She was started on Remeron 7.5 mg yesterday for underlying depression and hope to stimulate appetite. At baseline the patient does have decline in memory, but daughter feels today is worse. In ED patient remained hemodynamically stable. She has a notable MARYLOU with BUN 76 and creatinine 1.31, INR greater than 9.7, WBC 13.80. Her urinalysis appears negative for infection. Chest x-ray was no acute abnormality. She underwent CT chest, thoracic spine and lumbar spine which revealed multiple old, healed fractures specifically at T6, severe compression formerly at T8, endplate compression deformity at L1. Severe to space narrowing L5-S1 and old healed fracture at S2. Also noted are multiple bilateral rib fractures that are healed. She does have 5 mm anterior listhesis of L4 on L5. Principal Diagnosis MARYLOU (acute kidney injury) and Leukocytosis on admission secondary to dehydration Weight loss with severe protein-calorie malnutrition Supratherapeutic INR on admission Chronic atrial fibrillation Discharge Exam Constitutional cooperative Eyes PERRL, conjunctivae normal, anicteric sclerae EOM intact bilaterally ENMT external ear and nose normal, oropharynx normal Ears: + hearing impairment Neck trachea midline, no thyromegaly normal visual inspection Respiratory normal respiratory effort Cardiovascular Rate/Rhythm: regular rate and + irregularly irregular Gastrointestinal (Abdomen) Inspection/Auscultation: normal bowel sounds Percussion/Palpation: abdomen soft Musculoskeletal Head/Neck/Chest: normocephalic and head atraumatic Neurologic PERRL, EOMI, accommodation nl, no face palsy, no dysarthria Psychiatric Orientation: alert and cooperative Genitourinary + bladder abnormality (brothers) Discharge Data Allergies Allergy/AdvReac Type Severity Reaction Status Date / Time oxycodone Allergy Intermediate DIZZY Verified 12/25/18 01:04 ITCHING tramadol Allergy Intermediate DIZZY Verified 12/25/18 01:04 simvastatin Allergy Mild RASH Verified 12/25/18 01:04 Consultations 06/22/20 09:26 ED Decision to Admit Stat 06/22/20 12:58 Consult Case Management - Discharge Planning Routine Consult Psychiatry Routine Ordered Studies 06/22/20 07:10 CT lumbar spine wo con Stat CT thoracic spine wo con Stat 06/22/20 07:12 CT chest wo con Stat 06/22/20 10:03 CT head/brain wo con Stat Hospital Course (1) MARYLOU (acute kidney injury): -admission creatinine of 1.31 with the acute kidney injury likely from dehydration as outpatient from poor oral intake -creatinine normalized after IV fluids on this admission (2) Leukocytosis: -admission WBC of 12,000 most likely related to dehydration -improved with IV fluids -WBC normalized on 06/23/2020 -admission UA negative, admission CXR with no pneumonia -06/24/2020: admission blood cultures from 06/22/2020 with no growth to date and 3rd daily dose of ceftriaxone to be completed before patient is discharged under care of her niece to take her back to personal alf [facility]. returned case inspector notified (3) Weight loss: severe protein-calorie malnutrition -pt with 20lb weight loss in 1 month and correlated with patient not eating or drinking enough when at personal alf; Supratherapeutic INR on admission likely because of poor oral intake. patient's niece reports patient appetite has decreased over time and attributes this to medication from antibiotic eye drops which patient is no longer taking for several days -continue Mirtazapine 7.5 mg qHS which was recently prescribed by her outpatient doctors as appetite stimulant/anti depressant -She was given banana bag, Iv fluids with dextrose on admission -she does not have have abnormal TSH, serum folic acid levels, or serum B12 levels. RPR is pending -unclear whether there is any dementia involved, but patient ate her breakfast on 06/23/2020 without difficulty and on her own volition. BOOST Supplements ordered with meals but firefighter marine reports that patient declined because she does not like the taste -06/24/2020: patient continues to eat the meals; place instructions by psychiatry Dr. Mirian Blancas on 06/23/2020 on how to titrate up Remeron if needed as outpatient in discharge instructions (4) Supratherapeutic INR: Supratherapeutic INR on admission on 06/23/2020 -on metoprolol tartrate 100 mg BID for rate control of atrial fibrillation, continue -06/22/2020 with INR greater than 9.7, was given 10 mg IV vitamin K and INR downtrended to 2.3 by 06/23/2020 afternoon -INR subtherapeutic as 1.4 on 06/23/2020 AM labs -06/23/2020: Patient at the breakfast at the bedside on her own and finished most of the food. She has her amplifier for her ears and which helps with communication. Her niece patient's niece Madison [phone] at the bedside and after discussion with her and patient, the wishes are for patient avoid further systemic anticoagulation because maintaining the INR as outpatient has been very difficult to maintain in correct levels of INR of 2 to 3 and that patient is not an ideal candidate for NOAC given age and light body weight, also affirmed that no wished to being on heparin IV as a temporary blood thinner while inpatient, stroke risks were discussed and patient's niece who is medical decision maker affirms understanding of risk of stroke off blood thinners (5) Permanent atrial fibrillation: Chronic atrial fibrillation -management as above (6) Chronic heart failure with preserved ejection fraction: -Continue metoprolol -Lasix was held in patient, changes to discharge medications includes reducing Lasix frequency on discharge from home dose 20 mg daily to 20 mg every other day in order to reduce risk of dehydration new furosemide prescription sent electronically to [facility] [address] [place] [id number] (7) COPD (chronic obstructive pulmonary disease): -Continue Advair, PRN albuterol (8) Low back pain at multiple sites: -admission CT scan of lumbar and thoracic spine: Multiple old, healed fractures within the thoracic and lumbar spine -at baseline, patient is reportedly to be wheel chair bound but can usually transfer herself on and off commode at [facility]. -supportive care and prn pain medications if back pain exacerbation were given -currently has brothers while in the hospital which is to be removed on 06/24/2020 (9) DVT prophylaxis: -SCDs while in hospital patient's niece Madison [phone] affirms code Status is DNR/DNI Total Time Total Time Spent Total Time Spent (In Minutes): 40 minutes Total Time Includes: Examination of the Patient, Discharge Planning, Medication Reconciliation and Communication With Other Providers Discharge Plan Discharge Items Patient Disposition: Personal [facility] Care Reason For Visit: DEHYDRATION,SUPRATHERAPEUTIC INR Discharge Diagnosis: MARYLOU (acute kidney injury) and Leukocytosis on admission secondary to dehydration Weight loss with severe protein-calorie malnutrition Supratherapeutic INR on admission Chronic atrial fibrillation Condition on Discharge: Fair Activity: Resume your previous activity Non-emergency contact: Primary Care Provider Call non-emergency contact if: you have any medication questions Follow-up/Referrals: [facility], [facility] [Primary Care Provider] - Diet: Regular Addtl Attending Provider Instructions: BOOST Supplements ordered with meals to help with nutrition but firefighter marine reports that patient declined because she does not like the taste changes in discharge medications includes stopping warfarin as per discussion with patient and her niece on 06/23/2020 "Her niece patient's niece Madison [phone] at the bedside and after discussion with her and patient, the wishes are for patient avoid further systemic anticoagulation because maintaining the INR as outpatient has been very difficult to maintain in correct levels of INR of 2 to 3 and that patient is not an ideal candidate for NOAC given age and light body weight, also affirmed that no wished to being on heparin IV as a temporary blood thinner while inpatient, stroke risks were discussed and patient's niece who is medical decision maker affirms understanding of risk of stroke off blood thinners" other changes to discharge medications includes reducing Lasix frequency on discharge from home dose 20 mg daily to 20 mg every other day in order to reduce risk of dehydration new furosemide prescription sent electronically to [facility] [address] [place] [address] Add [employer] Officer Provider Instructions: Psychiatry Recommendations by Dr. Mirian Blancas on 06/23/2020 "85 yo female with prior dx of cognitive disorder (Alzheimer's dementia) presents with weight loss in personal care facility, just started a trial of Remeron for suspected depression due to decreased PO intake resulting in dehydration/admission. Plan: I suspect patient's decreased PO intake may be in part to progression of her dementia, needing more prompting around meals/PO. Defer to medicine/sw on level of nursing care needed, encourage to continue medical work up for dysphagia/etc. Trial of Remeron certainly appropriate as so difficult to assess, I would be hesitant to increase the dose as she seems quite groggy this am at 10 am. I'd suggest 7.5 mg for at least 1 week prior to increase to 15 mg Remeron (assuming sedation resolves). If no interval improvement for 4 weeks at 15 mg Remeron, feel low yield to do any further titration and would d/c at that point." Pending Studies at Discharge: No Stand-Alone Forms: [facility] [employer], Smoking Cessation Skilled Items Patient informed of condition?: Yes DNR: Yes Discharge Level of Care: Other Communicable Disease: No Discharge Prognosis: Stable Lines: None Urinary Catheter: No Medications and DC Order Prescriptions: New furosemide [Lasix] 20 mg tablet 20 mg PO Q OTHER DAY 30 Days Qty: 15 RF: 0 Continued fluticasone propion-salmeterol [Advair Diskus] 250-50 mcg/dose Blister With Device 1 inh INHALATION Q12H RF: 0 prednisone 10 mg Tablet 10 mg PO DIRECTED PRN (Reason: RESCUE KIT) RF: 0 atorvastatin 20 mg Tablet 20 mg PO DAILY RF: 0 metoprolol tartrate 100 mg Tablet 100 mg PO BID RF: 0 aspirin 81 mg Tablet,Delayed Release (Dr/Ec) 81 mg PO DAILY RF: 0 acetaminophen [Tylenol Extra Strength] 500 mg Tablet 1,000 mg PO BID MDD 3000 GRAM/24 HOURS PRN (Reason: Fever Or Pain) RF: 0 levothyroxine 25 mcg Tablet 25 mcg PO DAILYBB RF: 0 albuterol sulfate [Ventolin HFA] 90 mcg/actuation Hfa Aerosol Inhaler 2 puff INHALATION QID PRN (Reason: Shortness Of Breath) RF: 0 cholecalciferol (vitamin D3) 1,000 unit Capsule 1,000 unit PO DAILY RF: 0 Ensure Liquid 1 btl PO BID RF: 0 melatonin 5 mg Tablet 5 mg PO HS RF: 0 Systane Balance 0.6 % Drops 1 drp OPB Q4H RF: 0 furosemide [Lasix] 40 mg Tablet 20 mg PO DAILY PRN (Reason: >5 LB WT GAIN) RF: 0 lidocaine HCl [Aspercreme (lidocaine)] 4 % Cream 1 applic TOPICAL TID PRN (Reason: Pain) RF: 0 mirtazapine 7.5 mg tablet 7.5 mg PO HS RF: 0 Discontinued acetaminophen [Tylenol Extra Strength] 500 mg Tablet 1,000 mg PO AMPM RF: 0 warfarin 2.5 mg Tablet 2.5 mg PO DAILY@16 RF: 0 azithromycin 250 mg tablet See Rx Instructions .ROUTE .COMPLEX PRN (Reason: copd rescue ) RF: 0 furosemide 20 mg tablet 20 mg PO DAILY RF: 0 Discharge Orders: Discharge Order (Routine); Ordered 06/24/20 Ordered By: Izaiah Milton Admission Data Admit Date/Time: 06/22/20 09:35 Attending Provider: Izaiah Milton Admit Provider: Izaiah Milton Primary Care Provider: [facility], [facility] Other Providers: Izaiah Milton ; Flo Salazar I.
[2020-06-24] MEDS: cefTRIAXone SODIUM 1,000 MG in DEXTROSE 5% 50 ML IV SCH (11:19)
== END 2020-06-24 13:42 | disposition home or self-care (01) ==
LOC: 2N 07:03 → ED 07:03 → 2N 12:05

== ENCOUNTER 2021-08-10 10:07 | Inpatient (IN) ==
--- NOTE | 2021-08-10 10:31 | Emergency Department Note ---
Impression & Plan SOB (shortness of breath), Hypoxia, CHF (congestive heart failure), Fluid overload, Hypomagnesemia, Acute hyponatremia ED Provider Note NAME: GRACIELA COWAN AGE: 86 SEX: F : 1935 ARRIVES VIA: Ambulance INFORMANT: [Patient][ems, nursing] ED PROVIDER(S): [Terrell Lee MD] CHIEF COMPLAINT: Short of breath HISTORY OF PRESENT ILLNESS: The patient is an 86-year-old female with a history of COPD, heart failure and atrial fibrillation. She also has dementia. This a.m., she was noted to be coughing and seemed a bit short of breath. Her O2 saturations were somewhat low and recently, she has gained some weight. There is concern for CHF. In route, the patient's O2 saturations were reported at 88% although, here, on room air, she is saturating 95% as per our nursing staff. The patient is a very poor historian. She denies pain or shortness of breath presently but really cannot provide much of a history about her current situation. Given the dementia, no further history obtainable. REVIEW OF SYSTEMS: Unobtainable given her dementia. PMHx/PSHx: See Below SOCIAL HISTORY: See Below. PHYSICAL EXAM: GENERAL: Patient is in no acute distress. HEENT: No acute trauma, normocephalic atraumatic, mucous membranes moist, no nasal congestion, no scleral icterus. NECK: No stridor, no adenopathy, no meningismus, trachea is midline. LUNGS: Diminished breath sounds bilaterally, no wheezing, no crackles, presence are equal. No respiratory distress. HEART: Irregular rhythm with a normal rate. No obvious murmur. ABDOMEN: Soft, nontender, bowel sounds positive, no hernias, no peritonitis. EXTREMITIES: No cyanosis or edema, full range of motion of all the joints without pain or difficulty, no signs for acute trauma. NEUROLOGIC: Awake, confusion noted, no acute motor or sensory deficits, no focal weakness. SKIN: No rash, no jaundice, no diaphoresis. DIFFERENTIAL DIAGNOSIS: Reactive airway disease, pneumonia, pneumothorax, COPD, CHF, COVID-19, infection, cardiac ischemia, pulmonary embolism, bronchitis, musculoskeletal, gastrointestinal, as well as other pathologies. EMERGENCY DEPARTMENT COURSE/PROCEDURES: ECG: Indication was shortness of breath. The ECG shows atrial flutter with a variable AV block. The rate is 73. There is some nonspecific ST change and some baseline artifact. There is no ST elevation. No PVCs. The QTc is 449. Compared to an ECG from 22 June 2020, atrial flutter has replaced atrial fibrillation Continuous Cardiac Monitoring: An order was placed for continuous cardiac monitoring. The monitor shows a rate of 76 with atrial fibrillation. Critical Care Note: I have personally spent 39 minutes of critical care time in the direct management of this patient. This includes bedside care, interpr etation of diagnostic studies, and testing, discussion with consultants, patient, and family members, and other required patient management activities. This 39 minutes is in excess of all separately billable procedures. MEDICAL DECISION MAKING: There is no leukocytosis or concerning anemia. There is a normal platelet count. Sodium is low at 129, no kidney failure. Magnesium is low at 1.7. No concerning liver enzyme elevation. ECG shows atrial flutter, no acute ischemia. Cardiac enzyme testing x1 is not consistent with acute cardiac injury. BNP is elevated consistent with fluid overload. Chest x-ray does show evidence for CHF. Covid testing returned negative. The patient presented with some reported hypoxia and dyspnea. She was found to be in heart failure by work-up. She was hyponatremic and hypomagnesium. The patient was given IV Lasix, she was given IV magnesium. The patient is in need of a hospital stay. She requires diuresis and monit oring. I suspect her symptoms will start to improve once she is further diuresed. I spoke to the patient, I spoke with case management. The on-call hospitalist was consulted. Past Med/Surg History Medical History (Updated 08/10/21 @ 15:31 by Terrell Lee MD) Anemia Atrial fibrillation Chronic kidney disease CKD (chronic kidney disease), stage III COPD (chronic obstructive pulmonary disease) Fall Fracture of head of humerus HLD (hyperlipidemia) HTN (hypertension) HTN, goal to be determined Hypothyroidism Low back pain at multiple sites Osteoporosis Surgical History History of left-sided carotid endarterectomy Family History Brother Cancer Lung cancer Other No pertinent family history Social History Smoking Status: Unknown if ever smoked packs per day: 1; Years Smoked: 44; Second Hand Exposure: No; Hx Alcohol Use: No Hx Substance Use: No Preferred Language: Khmer Communication Ability: Impaired Visual Impairment: No Limitations Hearing Ability: Hard of Hearing Fire Prevention Chief Required: No Beliefs That Will Affect Care: None marital status: / Current Living Situation: Personal Care Facility Current Living Situation Comment: [facility] Feels Safe at Home: Yes Assistive Devices: Denture - Upper, Denture - Lower, Glasses and Wheelchair Allergies Allergies Allergy/AdvReac Type Severity Reaction Status Date / Time oxycodone Allergy Intermediate DIZZY Verified 08/10/21 11:33 ITCHING tramadol Allergy Intermediate DIZZY Verified 08/10/21 11:33 simvastatin Allergy Mild RASH Verified 08/10/21 11:33 Home Meds Home Medications Medication Instructions Recorded Confirmed acetaminophen 500 mg tablet 1,000 mg PO BID PRN MDD 3000 07/11/18 08/10/21 (Tylenol Extra Strength) GRAM/24 HOURS albuterol sulfate 90 mcg/actuation 2 puff INHALATION QID PRN 07/11/18 08/10/21 aerosol inhaler (Ventolin HFA) aspirin 81 mg tablet,delayed 81 mg PO DAILY 07/11/18 08/10/21 release atorvastatin 20 mg tablet 20 mg PO DAILY 07/11/18 08/10/21 cholecalciferol (vitamin D3) 25 1,000 unit PO DAILY 07/11/18 08/10/21 mcg (1,000 unit) capsule fluticasone 250 mcg-salmeterol 50 1 inh INHALATION Q12H 07/11/18 08/10/21 mcg/dose blistr powdr for inhalation (Advair Diskus) levothyroxine 25 mcg tablet 25 mcg PO DAILYBB 07/11/18 08/10/21 metoprolol tartrate 100 mg tablet 100 mg PO BID 07/11/18 08/10/21 prednisone 10 mg tablet 10 mg PO DIRECTED PRN 07/11/18 08/10/21 propylene glycol 0.6 % eye drops 1 drp OPL Q4H 07/11/18 08/10/21 (Systane Balance) furosemide 40 mg tablet (Lasix) 20 mg PO DAILY PRN 12/25/18 08/10/21 lidocaine HCl 4 % topical cream 1 applic TOPICAL TID PRN 12/25/18 08/10/21 (Aspercreme (lidocaine HCl)) mirtazapine 7.5 mg tablet 7.5 mg PO HS 06/22/20 08/10/21 artificial tears with lanolin eye 1 applic OPR Q4H 08/10/21 08/10/21 ointment azithromycin 250 mg tablet 0 mg PO .COMPLEX 08/10/21 08/10/21 furosemide 20 mg tablet 20 mg PO QAM 08/10/21 08/10/21 miconazole nitrate 2 % topical 1 applic TOPICAL TID PRN 08/10/21 08/10/21 cream Results & Data (ED) Vital Signs Vital Signs - 24 hr 08/10/21 09:53 08/10/21 10:09 08/10/21 10:16 Temperature 36.6 C Temperature Source Oral Pulse Rate 78 81 Pulse Rate from SpO2 Sensor 80 Respiratory Rate 16 18 Respiratory Effort / Characteristics Non-Labored Non-Labored Respiratory Depth Normal Normal Respiratory Pattern Regular Blood Pressure 152/96 H 152/96 H Blood Pressure Mean 114 114 Pulse Oximetry 95 95 95 Oxygen Delivery Method Room Air Room Air Sepsis Recent Fever Within 48 Hours No Sepsis New/Unexplained Change in Mental Status N/A Sepsis Action Taken by Nursing No Action Required 08/10/21 10:18 08/10/21 10:20 08/10/21 10:24 Temperature Temperature Source Pulse Rate 72 77 Pulse Rate from SpO2 Sensor 75 Respiratory Rate 16 17 Respiratory Effort / Characteristics Respiratory Depth Respiratory Pattern Blood Pressure Blood Pressure Mean Pulse Oximetry 94 94 Oxygen Delivery Method Room Air Room Air Sepsis Recent Fever Within 48 Hours Sepsis New/Unexplained Change in Mental Status Sepsis Action Taken by Nursing 08/10/21 10:30 08/10/21 10:40 08/10/21 10:50 Temperature Temperature Source Pulse Rate 70 76 72 Pulse Rate from SpO2 Sensor 76 78 74 Respiratory Rate 13 14 14 Respiratory Effort / Characteristics Respiratory Depth Respiratory Pattern Blood Pressure 154/80 H Blood Pressure Mean 104 Pulse Oximetry 94 94 93 Oxygen Delivery Method Sepsis Recent Fever Within 48 Hours Sepsis New/Unexplained Change in Mental Status Sepsis Action Taken by Nursing 08/10/21 11:00 08/10/21 11:10 08/10/21 11:20 Temperature Temperature Source Pulse Rate 76 74 73 Pulse Rate from SpO2 Sensor 78 75 75 Respiratory Rate 13 14 15 Respiratory Effort / Characteristics Respiratory Depth Respiratory Pattern Blood Pressure 159/86 H Blood Pressure Mean 110 Pulse Oximetry 92 92 93 Oxygen Delivery Method Sepsis Recent Fever Within 48 Hours Sepsis New/Unexplained Change in Mental Status Sepsis Action Taken by Nursing 08/10/21 11:30 08/10/21 11:40 08/10/21 11:50 Temperature Temperature Source Pulse Rate 76 72 67 Pulse Rate from SpO2 Sensor 74 71 67 Respiratory Rate 16 12 16 Respiratory Effort / Characteristics Respiratory Depth Respiratory Pattern Blood Pressure 160/98 H Blood Pressure Mean 118 Pulse Oximetry 94 93 92 Oxygen Delivery Method Sepsis Recent Fever Within 48 Hours Sepsis New/Unexplained Change in Mental Status Sepsis Action Taken by Nursing 08/10/21 12:00 08/10/21 12:10 08/10/21 12:20 Temperature Temperature Source Pulse Rate 66 67 67 Pulse Rate from SpO2 Sensor 65 71 67 Respiratory Rate 14 20 15 Respiratory Effort / Characteristics Respiratory Depth Respiratory Pattern Blood Pressure 143/82 H Blood Pressure Mean 102 Pulse Oximetry 94 94 89 L Oxygen Delivery Method Sepsis Recent Fever Within 48 Hours Sepsis New/Unexplained Change in Mental Status Sepsis Action Taken by Nursing 08/10/21 12:30 08/10/21 12:40 08/10/21 12:50 Temperature Temperature Source Pulse Rate 61 70 67 Pulse Rate from SpO2 Sensor 63 73 69 Respiratory Rate 20 13 13 Respiratory Effort / Characteristics Respiratory Depth Respiratory Pattern Blood Pressure 143/73 H Blood Pressure Mean 96 Pulse Oximetry 92 95 93 Oxygen Delivery Method Sepsis Recent Fever Within 48 Hours Sepsis New/Unexplained Change in Mental Status Sepsis Action Taken by Nursing 08/10/21 13:00 08/10/21 13:10 08/10/21 13:20 Temperature Temperature Source Pulse Rate 67 66 69 Pulse Rate from SpO2 Sensor 70 65 69 Respiratory Rate 13 14 12 Respiratory Effort / Characteristics Respiratory Depth Respiratory Pattern Blood Pressure 149/87 H Blood Pressure Mean 107 Pulse Oximetry 93 93 93 Oxygen Delivery Method Sepsis Recent Fever Within 48 Hours Sepsis New/Unexplained Change in Mental Status Sepsis Action Taken by Nursing 08/10/21 13:30 08/10/21 13:40 08/10/21 13:50 Temperature Temperature Source Pulse Rate 67 75 72 Pulse Rate from SpO2 Sensor 68 74 73 Respiratory Rate 15 13 12 Respiratory Effort / Characteristics Respiratory Depth Respiratory Pattern Blood Pressure 151/82 H Blood Pressure Mean 105 Pulse Oximetry 93 93 93 Oxygen Delivery Method Sepsis Recent Fever Within 48 Hours Sepsis New/Unexplained Change in Mental Status Sepsis Action Taken by Nursing 08/10/21 14:00 08/10/21 14:10 08/10/21 14:20 Temperature Temperature Source Pulse Rate 76 73 75 Pulse Rate from SpO2 Sensor 78 73 74 Respiratory Rate 15 13 13 Respiratory Effort / Characteristics Respiratory Depth Respiratory Pattern Blood Pressure 164/101 H Blood Pressure Mean 122 Pulse Oximetry 93 93 92 Oxygen Delivery Method Sepsis Recent Fever Within 48 Hours Sepsis New/Unexplained Change in Mental Status Sepsis Action Taken by Nursing 08/10/21 14:30 08/10/21 14:40 08/10/21 14:50 Temperature Temperature Source Pulse Rate 76 80 79 Pulse Rate from SpO2 Sensor 81 82 78 Respiratory Rate 17 15 16 Respiratory Effort / Characteristics Respiratory Depth Respiratory Pattern Blood Pressure 152/90 H Blood Pressure Mean 110 Pulse Oximetry 93 89 L 92 Oxygen Delivery Method Sepsis Recent Fever Within 48 Hours Sepsis New/Unexplained Change in Mental Status Sepsis Action Taken by Nursing 08/10/21 15:00 Temperature Temperature Source Pulse Rate 79 Pulse Rate from SpO2 Sensor 83 Respiratory Rate 13 Respiratory Effort / Characteristics Respiratory Depth Respiratory Pattern Blood Pressure 170/95 H Blood Pressure Mean 120 Pulse Oximetry 91 Oxygen Delivery Method Sepsis Recent Fever Within 48 Hours Sepsis New/Unexplained Change in Mental Status Sepsis Action Taken by [facility] Medications Current Medication List: was personally reviewed by me Laboratory Data Attestation: I reviewed the patient's lab results. Result diagrams: 08/10/21 10:30 08/10/21 10:30 Lab Results 08/10/21 08/10/21 08/10/21 Range/Units 10:30 10:30 10:46 WBC 8.19 (4.8-10.8) K/uL RBC 4.06 L (4.2-5.4) M/uL Hgb 12.8 (12.0-16.0) g/dL Hct 38.2 (37-47) % MCV 94.1 (80-100) fL MCH 31.5 (25-34) pg MCHC 33.5 (32-36) g/dL RDW Std Deviation 53.4 H (36.4-46.3) fL RDW Coeff of Tru 15.5 H (11.5-14.5) % Plt Count 184 (130-400) K/uL MPV 10.0 (7.4-10.4) fL Immature Gran % (Auto) 0.1 % Neut % (Auto) 79.0 % Lymph % (Auto) 10.1 % [place] % (Auto) 8.8 % Eos % (Auto) 1.8 % Baso % (Auto) 0.2 % Neut # (Auto) 6.46 (1.4-6.5) K/uL Lymph # (Auto) 0.83 L (1.2-3.4) K/uL [place] # (Auto) 0.72 H (0.11-0.59) K/uL Eos # (Auto) 0.15 (0-0.5) K/uL Baso # (Auto) 0.02 (0-0.2) K/uL Immature Gran # (Auto) 0.01 (0.00-0.02) K/uL Sodium 129 L (136-145) mmol/L Potassium 4.4 (3.5-5.1) mmol/L Chloride 97 L (98-107) mmol/L Carbon Dioxide 26 (21-32) mmol/L Anion Gap 6.0 (3-11) BUN 25 H (7-18) mg/dl Creatinine 0.90 (0.6-1.2) mg/dl Est Cr Clr Drug Dosing Not Reportable Est GFR ( Amer) 66.2 ml/min Est GFR (Non-Af Amer) 57.1 ml/min BUN/Creatinine Ratio 27.9 H (10-20) Glucose 101 H (70-99) mg/dl Calcium 9.4 (8.5-10.1) mg/dl Magnesium 1.7 L (1.8-2.4) mg/dl Total Bilirubin 1.1 H (0.2-1) mg/dl AST 21 (15-37) U/L ALT 17 (12-78) U/L Alkaline Phosphatase 70 (45-117) U/L Troponin I < 0.015 (0-0.045) ng/ml NT-Pro-B Natriuret Pep 8151 H (0-1800) pg/ml Total Protein 7.2 (6.4-8.2) gm/dl Albumin 3.4 (3.4-5.0) gm/dl Globulin 3.8 (2.5-4.0) gm/dl Albumin/Globulin Ratio 0.9 (0.9-2) COVID-19 Eval Order Covid19 at [facility] SARS-CoV-2 (PCR) (Negative) 08/10/21 Range/Units 10:46 WBC (4.8-10.8) K/uL RBC (4.2-5.4) M/uL Hgb (12.0-16.0) g/dL Hct (37-47) % MCV (80-100) fL MCH (25-34) pg MCHC (32-36) g/dL RDW Std Deviation (36.4-46.3) fL RDW Coeff of Tru (11.5-14.5) % Plt Count (130-400) K/uL MPV (7.4-10.4) fL Immature Gran % (Auto) % Neut % (Auto) % Lymph % (Auto) % [place] % (Auto) % Eos % (Auto) % Baso % (Auto) % Neut # (Auto) (1.4-6.5) K/uL Lymph # (Auto) (1.2-3.4) K/uL Tr[place]ble # (Auto) (0.11-0.59) K/uL Eos # (Auto) (0-0.5) K/uL Baso # (Auto) (0-0.2) K/uL Immature Gran # (Auto) (0.00-0.02) K/uL Sodium (136-145) mmol/L Potassium (3.5-5.1) mmol/L Chloride (98-107) mmol/L Carbon Dioxide (21-32) mmol/L Anion Gap (3-11) BUN (7-18) mg/dl Creatinine (0.6-1.2) mg/dl Est Cr Clr Drug Dosing Est GFR ( Amer) ml/min Est GFR (Non-Af Amer) ml/min BUN/Creatinine Ratio (10-20) Glucose (70-99) mg/dl Calcium (8.5-10.1) mg/dl Magnesium (1.8-2.4) mg/dl Total Bilirubin (0.2-1) mg/dl AST (15-37) U/L ALT (12-78) U/L Alkaline Phosphatase (45-117) U/L Troponin I (0-0.045) ng/ml NT-Pro-B Natriuret Pep (0-1800) pg/ml Total Protein (6.4-8.2) gm/dl Albumin (3.4-5.0) gm/dl Globulin (2.5-4.0) gm/dl Albumin/Globulin Ratio (0.9-2) COVID-19 Eval Order SARS-CoV-2 (PCR) NEGATIVE (Negative) Administered Medications Discontinued Medications Furosemide (Furosemide 40 Mg/4 Ml Vial) 40 mg IV NOW STA Stop: 08/10/21 11:21 Last Admin: 08/10/21 11:44 Dose: 40 mg Documented by: [id number] Magnesium Sulfate/Dextrose (Magnesium Sulfate / D5w) 1 gm in 100 mls @ 100 mls/hr IV NOW STA Stop: 08/10/21 12:18 Last Admin: 08/10/21 11:44 Dose: 100 mls/hr Documented by: [id number] Imaging Data Radiologist's Impression: Chest X-Ray 08/10/21 10:24 XR chest 1V portable HISTORY: 86 years-old Female Dyspnea acute shortness of breath COMPARISON: Chest radiograph and chest CT 06/22/2020 TECHNIQUE: Portable AP view the chest FINDINGS: Cardiac silhouette is enlarged. Calcified plaque the thoracic aorta. Small left and moderate right pleural effusions with right greater left bibasilar consolidation. Pulmonary vascular congestion with reticular interstitial opacities. Degenerative changes of the shoulders and spine. Chronic fracture deformity of the proximal left humerus. IMPRESSION: 1. Cardiomegaly with pulmonary edema. 2. Small left and moderate right pleural effusions. 3. Right greater than left bibasilar consolidation suggestive of atelectasis versus pneumonia. ACT 112: Negative or not required by law. The above report was generated using voice recognition software. It may contain grammatical, syntax or spelling errors. Electronically signed by: Theron Jaramillo M.D. 08/10/2021 11:22 AM Discharge Plan Visit Data Chief Complaint: Shortness of Breath/Dyspnea ED Provider: Terrell Lee Discharge Problem: SOB (shortness of breath), Hypoxia, CHF (congestive heart failure), Fluid overload, Hypomagnesemia, Acute hyponatremia Patient Disposition: Admitted As Inpatient Condition: Fair Forms Stand Alone Forms: [facility] [employer] Prescriptions Prescriptions: No Action fluticasone propion-salmeterol [Advair Diskus] 250-50 mcg/dose Blister With Device 1 inh INHALATION Q12H RF: 0 prednisone 10 mg Tablet 10 mg PO DIRECTED PRN (Reason: RESCUE KIT) RF: 0 atorvastatin 20 mg Tablet 20 mg PO DAILY RF: 0 metoprolol tartrate 100 mg Tablet 100 mg PO BID RF: 0 aspirin 81 mg Tablet,Delayed Release (Dr/Ec) 81 mg PO DAILY RF: 0 acetaminophen [Tylenol Extra Strength] 500 mg Tablet 1,000 mg PO BID MDD 3000 GRAM/24 HOURS PRN (Reason: Fever Or Pain) RF: 0 levothyroxine 25 mcg Tablet 25 mcg PO DAILYBB RF: 0 albuterol sulfate [Ventolin HFA] 90 mcg/actuation Hfa Aerosol Inhaler 2 puff INHALATION QID PRN (Reason: Shortness Of Breath) RF: 0 cholecalciferol (vitamin D3) 1,000 unit Capsule 1,000 unit PO DAILY RF: 0 Systane Balance 0.6 % Drops 1 drp OPL Q4H RF: 0 furosemide [Lasix] 40 mg Tablet 20 mg PO DAILY PRN (Reason: >5 LB WT GAIN) RF: 0 lidocaine HCl [Aspercreme (lidocaine HCl)] 4 % Cream 1 applic TOPICAL TID PRN (Reason: Pain) RF: 0 mirtazapine 7.5 mg tablet 7.5 mg PO HS RF: 0 azithromycin 250 mg Tablet 0 mg PO .COMPLEX RF: 0 miconazole nitrate [Kierra] 2 % Cream 1 applic TOPICAL TID PRN (Reason: sore protection) RF: 0 furosemide 20 mg tablet 20 mg PO QAM RF: 0 Refresh P.M. (lanolin) Ointment 1 applic OPR Q4H RF: 0 [facility] -
[2021-08-10 10:40] LABS: Basophils # (auto) 0.02 K/uL (0-0.2); Basophils % (auto) 0.2 %; Eosinophils # (auto) 0.15 K/uL (0-0.5); Eosinophils % (auto) 1.8 %; Hematocrit (blood only) 38.2 % (37-47); Hemoglobin 12.8 g/dL (12.0-16.0); Immature Granulocytes # (auto) 0.01 K/uL (0.00-0.02); Immature Granulocytes % (auto) 0.1 %; Lymphocytes # (auto) 0.83 K/uL (1.2-3.4); Lymphocytes % (auto) 10.1 %; Mean Corpuscular Hemoglobin 31.5 pg (25-34); Mean Corpuscular Hgb Conc 33.5 g/dL (32-36); Mean Corpuscular Volume 94.1 fL (80-100); Monocytes # (auto) 0.72 K/uL (0.11-0.59); Monocytes % (auto) 8.8 %; Neutrophils # (auto) 6.46 K/uL (1.4-6.5); Platelet Count 184 K/uL (130-400); RDW Coefficient of Variation 15.5 % (11.5-14.5); RDW Standard Deviation 53.4 fL (36.4-46.3); Red Blood Count 4.06 M/uL (4.2-5.4); White Blood Count 8.19 K/uL (4.8-10.8)
[2021-08-10 10:59] LABS: Alanine Aminotransferase 17 U/L (12-78); Albumin Level 3.4 gm/dl (3.4-5.0); Aspartate Aminotransferase 21 U/L (15-37); BUN Creatinine Ratio 27.9 (10-20); Blood Urea Nitrogen 25 mg/dl (7-18); Calcium 9.4 mg/dl (8.5-10.1); Carbon Dioxide 26 mmol/L (21-32); Chloride 97 mmol/L (98-107); Est GFR (African American) 66.2 ml/min; Est GFR (Non-African American) 57.1 ml/min; Glucose 101 mg/dl (70-99); Magnesium 1.7 mg/dl (1.8-2.4); Potassium 4.4 mmol/L (3.5-5.1); Sodium 129 mmol/L (136-145)
[2021-08-10 11:04] LABS: Albumin Globulin Ratio 0.9 (0.9-2); Alkaline Phosphatase 70 U/L (45-117); Bilirubin,Total 1.1 mg/dl (0.2-1); Globulin 3.8 gm/dl (2.5-4.0); NT Pro B Type Natriuretic Pept 8151 pg/ml (0-1800); Total Protein 7.2 gm/dl (6.4-8.2); Troponin I < 0.015 ng/ml (0-0.045)
[2021-08-10] MEDS ORDERED: MAGNESIUM SULFATE / D5W 1 GM/100 ML BAG IV STA (11:19)
[2021-08-10] MEDS ORDERED: FUROSEMIDE 40 MG/4 ML VIAL IV STA (11:20)
--- NOTE | 2021-08-10 11:24 | XRay Report ---
XR chest 1V portable HISTORY: 86 years-old Female Dyspnea acute shortness of breath COMPARISON: Chest radiograph and chest CT 06/22/2020 TECHNIQUE: Portable AP view the chest FINDINGS: Cardiac silhouette is enlarged. Calcified plaque the thoracic aorta. Small left and moderate right pl eural effusions with right greater left bibasilar consolidation. Pulmonary vascular congestion with r eticular interstitial opacities. Degenerative changes of the shoulders and spine. Chronic fracture de formity of the proximal left humerus. IMPRESSION: 1. Cardiomegaly with pulmonary edema. 2. Small left and moderate right pleural effusions. 3. Right greater than left bibasilar consolidation suggestive of atelectasis versus pneumonia. ACT 112: Negative or not required by law. The above report was generated using voice recognition software. It may contain grammatical, syntax o r spelling errors. Electronically signed by: Theron Jaramillo M.D. 08/10/2021 11:22 AM
--- NOTE | 2021-08-10 12:27 | History & Physical Report ---
Date of Service August 10, 2021 Assessment & Plan (1) Acute on chronic heart failure with preserved ejection fraction: (2) SOB (shortness of breath): Plan: 83-year-old female with significant for COPD; hypothyroidism; hyperlipidemia; chronic atrial fibrillation with (Coumadin discontinued because of her fall risk), chronic kidney disease stage III; carotid stenosis; renal hypertension; urge incontinence; Alzheimer dementia presents with shortness of breath and weight gained Mostly due to acute CHF CXR showed cardiomegaly with pulmonary edema. ProBNP 8151, troponin normal Received lasix 40mg IV in the ER Staff at [facility] said pt was getting PO Lasix every other day Will evaluate for additional lasix in the morning Continue neb treatment Will get a resting ECHO Cardiology consult Continue monitor I/O and 1.8 L fluid restriction daily Continue monitor BMP while on Lasix History of chronic obstructive pulmonary disease. Continue home inhalers and nebs p.r.n. Continue monitor closely History of atrial fibrillation rate control with Lopressor. Coumadin discontinued at last admission due to risk of fall Hyponatremia Na 129 on admission Lasix 40mg Continue monitor BMP History of hyperlipidemia Continue statin History of hypertension On Lopressor. History of hypothyroidism Continue Synthroid. History of dementia Will monitor for delirium. Deep venous thrombosis prophylaxis on Lovenox Code status DNR Disposition Spoke to her niece who is the POA and confirmed code status DNR History of Present Illness Chief Complaint: Shortness of breath Primary Care Provider: [facility], [facility] 86-year-old female with past medical history significant for COPD; hypothyroidism; hyperlipidemia; chronic atrial fibrillation with (Coumadin discontinued because of her fall risk), chronic kidney disease stage III; carotid stenosis; renal hypertension; urge incontinence; Alzheimer dementia, who lives at [facility] was brought to the ER for SOB. History obtained from the nursing staff (over the phone) , chart and patient. As per staff patient walked to the staff office complaint of SOB. Staff said that pt has been having a wet cough for the last 2 days. She said that pt had gained about 3-4 lbs in the last few days. Staff said that her oxygen saturation was in the 80's and was placed on oxygen supplement. Staff said that pt usually uses a walker to ambulate, but this morning she was feeling weak. As per staff pt takes lasix every other day. Currently pt said that she is hungry. Denies any chest pain, palpitation, dizziness and SOB. In the ER chest Xray showed cardiomegaly with pulmonary edema and Small left and moderate right pleural effusions. Lasix 40mg IV given in the ER. Allergies Allergy/AdvReac Type Severity Reaction Status Date / Time oxycodone Allergy Intermediate DIZZY Verified 08/10/21 11:33 ITCHING tramadol Allergy Intermediate DIZZY Verified 08/10/21 11:33 simvastatin Allergy Mild RASH Verified 08/10/21 11:33 Home Medications Medication Instructions Recorded Confirmed Type acetaminophen 500 mg tablet 1,000 mg PO BID PRN MDD 3000 07/11/18 08/10/21 History (Tylenol Extra Strength) GRAM/24 HOURS albuterol sulfate 90 mcg/actuation 2 puff INHALATION QID PRN 07/11/18 08/10/21 History aerosol inhaler (Ventolin HFA) aspirin 81 mg tablet,delayed 81 mg PO DAILY 07/11/18 08/10/21 History release atorvastatin 20 mg tablet 20 mg PO DAILY 07/11/18 08/10/21 History cholecalciferol (vitamin D3) 25 1,000 unit PO DAILY 07/11/18 08/10/21 History mcg (1,000 unit) capsule fluticasone 250 mcg-salmeterol 50 1 inh INHALATION Q12H 07/11/18 08/10/21 History mcg/dose blistr powdr for inhalation (Advair Diskus) levothyroxine 25 mcg tablet 25 mcg PO DAILYBB 07/11/18 08/10/21 History metoprolol tartrate 100 mg tablet 100 mg PO BID 07/11/18 08/10/21 History prednisone 10 mg tablet 10 mg PO DIRECTED PRN 07/11/18 08/10/21 History propylene glycol 0.6 % eye drops 1 drp OPL Q4H 07/11/18 08/10/21 History (Systane Balance) furosemide 40 mg tablet (Lasix) 20 mg PO DAILY PRN 12/25/18 08/10/21 History lidocaine HCl 4 % topical cream 1 applic TOPICAL TID PRN 12/25/18 08/10/21 History (Aspercreme (lidocaine HCl)) mirtazapine 7.5 mg tablet 7.5 mg PO HS 06/22/20 08/10/21 History artificial tears with lanolin eye 1 applic OPR Q4H 08/10/21 08/10/21 History ointment azithromycin 250 mg tablet 0 mg PO .COMPLEX 08/10/21 08/10/21 History furosemide 20 mg tablet 20 mg PO QAM 08/10/21 08/10/21 History miconazole nitrate 2 % topical 1 applic TOPICAL TID PRN 08/10/21 08/10/21 History cream Past Med/Surg History Medical History (Updated 08/10/21 @ 15:31 by Terrell Lee MD) Anemia Atrial fibrillation Chronic kidney disease CKD (chronic kidney disease), stage III COPD (chronic obstructive pulmonary disease) Fall Fracture of head of humerus HLD (hyperlipidemia) HTN (hypertension) HTN, goal to be determined Hypothyroidism Low back pain at multiple sites Osteoporosis Surgical History History of left-sided carotid endarterectomy Family History Brother Cancer Lung cancer Other No pertinent family history Social History Smoking Status: Never smoker packs per day: 1; Years Smoked: 44; Second Hand Exposure: No; Do You Dip or Chew Tobacco: No; Tobacco Cessation Education Requested by Patient: No Hx Alcohol Use: No Hx Substance Use: No Preferred Language: Turkish Communication Ability: Impaired Communication Ability Comment: very Hard of hearing. Worse on Left than Right. 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 Required: No Beliefs That Will Affect Care: None marital status: / Current Living Situation: Personal Care Facility Current Living Situation Comment: [facility] Other Information That Helps Us Care for You: No Feels Safe at Home: Yes Safety Concerns: Feels Safe At This Time Assistive Devices: Denture - Upper, Denture - Lower, Glasses and Wheelchair Review of Systems Review of Systems: All systems reviewed & are unremarkable except as noted in HPI & below Physical Exam Physical Exam: General- No acute distress Head- atraumatic Eyes- PERRL, EOMI, ENT- oropharynx clear, decrease hearing function Neck- supple, no JVD Lungs- clear to auscultation Heart- irregular rhythm; no murmur Abdomen- normal bowel sounds, soft, nontender Extremities- no calf tenderness Neuro- alert, oriented x 3; PERRL, EOMI; no facial palsy; no dysarthria Skin- warm & dry Results & Data Results & Data ([facility]) Vital Signs (Past 12 Hours) Vital Signs Temp Pulse Resp BP Pulse Ox 08/10/21 10:50 72 14 93 08/10/21 10:40 76 14 94 08/10/21 10:30 70 13 154/80 H 94 08/10/21 10:20 77 17 94 08/10/21 10:18 72 16 94 08/10/21 10:16 81 18 152/96 H 95 08/10/21 10:09 36.6 C 78 16 152/96 H 95 08/10/21 09:53 95 Diagnostic Findings XR chest 1V portable HISTORY: 86 years-old Female Dyspnea acute shortness of breath COMPARISON: Chest radiograph and chest CT 06/22/2020 TECHNIQUE: Portable AP view the chest FINDINGS: Cardiac silhouette is enlarged. Calcified plaque the thoracic aorta. Small left and moderate right pleural effusions with right greater left bibasilar consolidation. Pulmonary vascular congestion with reticular interstitial opacities. Degenerative changes of the shoulders and spine. Chronic fracture deformity of the proximal left humerus. IMPRESSION: 1. Cardiomegaly with pulmonary edema. 2. Small left and moderate right pleural effusions. 3. Right greater than left bibasilar consolidation suggestive of atelectasis versus pneumonia. ACT 112: Negative or not required by law. The above report was generated using voice recognition software. It may contain grammatical, syntax or spelling errors. Electronically signed by: Theron Jaramillo M.D. 08/10/2021 11:22 AM Dictated: 08/10/21 1121Transcribed: 08/10/21 1121 Code Status & VTE Plan VTE Prophylaxis Plan VTE Prophylaxis will be ordered: Yes
[2021-08-10] MEDS ORDERED: MICONAZOLE NITRATE 2% CR 30 GM TUBE TOP PRN (16:18)
[2021-08-10] MEDS ORDERED: LIDOCAINE 4% CREAM 15 GM TUBE EXT PRN (16:18)
[2021-08-10] MEDS ORDERED: NON-FORMULARY MEDICATION (Propylene Glycol [Systane Balance] 0.6 % Drops) OPL SCH (16:18)
[2021-08-10] MEDS ORDERED: ALBUTEROL HFA 8 GM INHALER INH PRN (16:18)
[2021-08-10] MEDS ORDERED: [UNRECOGNIZED DRUG - OTHER] OPR SCH (16:18)
[2021-08-10] MEDS ORDERED: FLUTICASONE/SALMETEROL 250/50 (ADVAIR) 14 PUFF/1 INHALER INH SCH (16:18)
[2021-08-10] MEDS ORDERED: ACETAMINOPHEN 500 MG TAB PO PRN (16:30)
[2021-08-10] MEDS: ALBUT/IPRATROP 3MG/0.5MG NEB 3 ML VIAL NEB SCH ×2 (16:43→22:56)
[2021-08-10] MEDS ORDERED: INFLUENZA VACCINE HIGH DOSE PF 65+ 0.7 ML SYR IM ONE (16:44)
[2021-08-10] MEDS: guaiFENesin 200 MG TAB PO SCH (17:45)
[2021-08-10] MEDS: ARTIFICIAL TEARS OP SCH ×2 (19:56→23:23)
[2021-08-10] MEDS: FLUTICASONE/VILANTEROL 100/25MCG 14 PUFFS/INHALER INH SCH (20:04)
[2021-08-10] MEDS: MIRTAZAPINE TAB 15 MG TAB PO SCH (20:05)
[2021-08-10] MEDS: METOPROLOL TARTRATE 100 MG TAB PO SCH (20:09)
[2021-08-10] MEDS ORDERED: ENOXAPARIN INJ 40 MG/0.4 ML SYR SQ SCH (21:00)
[2021-08-11] MEDS: guaiFENesin 200 MG TAB PO SCH ×5 (00:24→22:26)
[2021-08-11] MEDS: ARTIFICIAL TEARS OP SCH ×6 (03:20→22:27)
[2021-08-11] MEDS: LEVOTHYROXINE SODIUM 25 MCG TABLET PO SCH (05:35)
[2021-08-11 07:38] LABS: Hematocrit (blood only) 38.4 % (37-47); Hemoglobin 12.9 g/dL (12.0-16.0); Mean Corpuscular Hemoglobin 31.4 pg (25-34); Mean Corpuscular Hgb Conc 33.6 g/dL (32-36); Mean Corpuscular Volume 93.4 fL (80-100); Mean Platelet Volume 10.2 fL (7.4-10.4); Platelet Count 187 K/uL (130-400); RDW Coefficient of Variation 15.7 % (11.5-14.5); RDW Standard Deviation 53.7 fL (36.4-46.3); Red Blood Count 4.11 M/uL (4.2-5.4); White Blood Count 7.79 K/uL (4.8-10.8)
[2021-08-11] MEDS: ALBUT/IPRATROP 3MG/0.5MG NEB 3 ML VIAL NEB SCH (07:54)
[2021-08-11 07:55] LABS: BUN Creatinine Ratio 34.6 (10-20); Calcium 9.2 mg/dl (8.5-10.1); Creatinine Clr Calc Pharmacy 34.1 ml/min; Est GFR (Non-African American) 63.9 ml/min; Magnesium 1.8 mg/dl (1.8-2.4); Potassium 4.3 mmol/L (3.5-5.1)
[2021-08-11] MEDS ORDERED: ALBUT/IPRATROP 3MG/0.5MG NEB 3 ML VIAL NEB PRN (08:28)
[2021-08-11] MEDS ORDERED: FUROSEMIDE 40 MG in SYRINGE 0 ML IV ONE (08:33)
[2021-08-11] MEDS: METOPROLOL TARTRATE 100 MG TAB PO SCH ×2 (08:35→22:25)
[2021-08-11] MEDS: ASPIRIN 81 MG ECTAB PO SCH (08:37)
[2021-08-11] MEDS: CHOLECALCIFEROL 1,000 UNITS 25 MCG TAB PO SCH (08:37)
[2021-08-11] MEDS: ATORVASTATIN 20 MG TAB PO SCH (08:37)
[2021-08-11] MEDS ORDERED: FUROSEMIDE 20 MG in SYRINGE 0 ML IV ONE (09:00)
--- NOTE | 2021-08-11 11:50 | Electrocardiogram Report ---
Test Reason : Blood Pressure : / mmHG Vent. Rate : 073 BPM Atrial Rate : 312 BPM P-R Int : 000 ms QRS Dur : 084 ms QT Int : 408 ms P-R-T Axes : 000 266 017 degrees QTc Int : 449 ms Atrial flutter with variable A-V block Septal infarct (cited on or before 22-JUN-2020) Abnormal ECG When compared with ECG of 22-JUN-2020 07:37, Atrial flutter has replaced Atrial fibrillation Confirmed by Efraín Hernandez ([id number]) on 08/11/2021 11:50:26 AM Referred By: [facility] Confirmed By:Efraín Hernandez
--- NOTE | 2021-08-11 12:34 | Cardiology Consultation ---
Date of Consultation August 11, 2021 Assessment & Plan (1) CHF (congestive heart failure): (2) Hypoxia: (3) Severe mitral insufficiency: (4) Severe pulmonary arterial systolic hypertension: (5) Permanent atrial fibrillation: (6) Diastolic congestive heart failure due to valvular disease: (7) Pleural effusion, right: Fragile with thin elderly female with chronic dementia admitted with worsening dyspnea and hypoxia with x-ray findings of acute diastolic heart failure secondary to valvular heart disease with right pleural effusion Echocardiogram not significantly changed from prior studies demonstrating severe mitral tricuspid insufficiency and severe pulmonary pretension with preserved left ventricular systolic function Atrial fibrillation rates are controlled Plan agree with continued diuresis. Pleural effusion will need to be followed Would recommend supplementing oxygen Overall prognosis limited, CODE STATUS appropriately addressed History of Present Illness Requesting Physician: Dr. Davis Attending Physician: Lexx Davis MD History of Present Illness Patient is an 86-year-old female, fragile and demented with multiple underlying medical issues which include 1. Chronic atrial fibrillation flutter 2. Valvular heart disease with severe mitral and severe tricuspid insufficiency 3. Severe pulmonary hypertension 4. Chronic obstructive lung disease 5. Stage III CKD 6. Chronic hyponatremia 7. Alzheimer's type dementia 8. Atherosclerotic carotid disease Patient referred from personal care facility with noted cough and mild hypoxia per records. Patient extremely poor historian and unable to offer any additional information. Data observed from review of records in chart. Chest x-ray on presentation demonstrated evidence of interstitial edema as well as right pleural effusion/atelectasis. Patient currently denies any acute complaints. Very disoriented Allergies Allergy/AdvReac Type Severity Reaction Status Date / Time oxycodone Allergy Intermediate DIZZY Verified 08/10/21 11:33 ITCHING tramadol Allergy Intermediate DIZZY Verified 08/10/21 11:33 simvastatin Allergy Mild RASH Verified 08/10/21 11:33 Home Medications Medication Instructions Recorded Confirmed Type acetaminophen 500 mg tablet 1,000 mg PO BID PRN MDD 3000 07/11/18 08/10/21 History (Tylenol Extra Strength) GRAM/24 HOURS albuterol sulfate 90 mcg/actuation 2 puff INHALATION QID PRN 07/11/18 08/10/21 History aerosol inhaler (Ventolin HFA) aspirin 81 mg tablet,delayed 81 mg PO DAILY 07/11/18 08/10/21 History release atorvastatin 20 mg tablet 20 mg PO DAILY 07/11/18 08/10/21 History cholecalciferol (vitamin D3) 25 1,000 unit PO DAILY 07/11/18 08/10/21 History mcg (1,000 unit) capsule fluticasone 250 mcg-salmeterol 50 1 inh INHALATION Q12H 07/11/18 08/10/21 History mcg/dose blistr powdr for inhalation (Advair Diskus) levothyroxine 25 mcg tablet 25 mcg PO DAILYBB 07/11/18 08/10/21 History metoprolol tartrate 100 mg tablet 100 mg PO BID 07/11/18 08/10/21 History prednisone 10 mg tablet 10 mg PO DIRECTED PRN 07/11/18 08/10/21 History propylene glycol 0.6 % eye drops 1 drp OPL Q4H 07/11/18 08/10/21 History (Systane Balance) furosemide 40 mg tablet (Lasix) 20 mg PO DAILY PRN 12/25/18 08/10/21 History lidocaine HCl 4 % topical cream 1 applic TOPICAL TID PRN 12/25/18 08/10/21 History (Aspercreme (lidocaine HCl)) mirtazapine 7.5 mg tablet 7.5 mg PO HS 06/22/20 08/10/21 History artificial tears with lanolin eye 1 applic OPR Q4H 08/10/21 08/10/21 History ointment azithromycin 250 mg tablet 0 mg PO .COMPLEX 08/10/21 08/10/21 History furosemide 20 mg tablet 20 mg PO QAM 08/10/21 08/10/21 History miconazole nitrate 2 % topical 1 applic TOPICAL TID PRN 08/10/21 08/10/21 History cream Patient History Medical History (Updated 08/11/21 @ 12:43 by Prem Villar MD) Anemia Atrial fibrillation Chronic kidney disease CKD (chronic kidney disease), stage III COPD (chronic obstructive pulmonary disease) Fall Fracture of head of humerus HLD (hyperlipidemia) HTN (hypertension) HTN, goal to be determined Hypothyroidism Low back pain at multiple sites Osteoporosis Surgical History History of left-sided carotid endarterectomy Family History Brother Cancer Lung cancer Other No pertinent family history Social History Smoking Status: Never smoker packs per day: 1; Years Smoked: 44; Second Hand Exposure: No; Do You Dip or Chew Tobacco: No; Tobacco Cessation Education Requested by Patient: No Hx Alcohol Use: No Hx Substance Use: No Preferred Language: Frisian Communication Ability: Impaired Communication Ability Comment: very Hard of hearing. Worse on Left than Right. Visual Impairment: No Limitations Hearing Ability: Hard of Hearing Calliope Player Required: No Beliefs That Will Affect Care: None marital status: / Current Living Situation: Personal Care Facility Current Living Situation Comment: [facility] Other Information That Helps Us Care for You: No Feels Safe at Home: Yes Safety Concerns: Feels Safe At This Time Assistive Devices: Denture - Upper, Denture - Lower, Glasses and Wheelchair Review of Systems Review of Systems: Unobtainable due to cognitive status Physical Exam Constitutional: + thin; no acute distress Eyes: PERRL, conjunctivae normal, anicteric sclerae ENMT: external ear and nose normal, oropharynx normal Neck: trachea midline, no thyromegaly Respiratory: Auscultation: + diminished lung sounds (Right base) and + rales Cardiovascular: Rate/Rhythm: + irregularly irregular Heart Sounds: + murmur (Grade 2/6 to 3/6 holosystolic murmurs audible best at mid axillary line ) Vessels: + carotid bruit; no JVD Extremities: no edema Gastrointestinal (Abdomen): normal bowel sounds, soft, nontender, no hepatosplenomegaly Neurologic: awake Patient follows minimal commands no appropriate response to question Results & Data ([facility]) Vital Signs (Past 12 Hours) Vital Signs Temp Pulse Pulse Resp BP BP Pulse Ox 08/11/21 11:59 36.4 C L 73 18 125/69 90 08/11/21 09:37 86 08/11/21 08:00 36.7 C 94 H 18 151/73 H 90 08/11/21 07:54 87 18 92 08/11/21 04:12 74 08/11/21 02:38 36.6 C 72 18 155/87 H 91 Laboratory Results Laboratory Results - last 24 hr 08/10/21 08/10/21 08/11/21 17:53 18:30 06:15 WBC 7.79 RBC 4.11 L Hgb 12.9 Hct 38.4 MCV 93.4 MCH 31.4 MCHC 33.6 RDW Std Deviation 53.7 H RDW Coeff of Tru 15.7 H Plt Count 187 MPV 10.2 Sodium Potassium Chloride Carbon Dioxide Anion Gap BUN Creatinine Est Cr Clr Drug Dosing Est GFR ( Amer) Est GFR (Non-Af Amer) BUN/Creatinine Ratio Glucose Calcium Magnesium 2.0 Nasal Screen MRSA (PCR) Negative 08/11/21 06:15 WBC RBC Hgb Hct MCV MCH MCHC RDW Std Deviation RDW Coeff of Tru Plt Count MPV Sodium 130 L Potassium 4.3 Chloride 99 Carbon Dioxide 22 Anion Gap 9.0 BUN 28 H Creatinine 0.82 Est Cr Clr Drug Dosing 34.1 Est GFR ( Amer) 74.0 Est GFR (Non-Af Amer) 63.9 BUN/Creatinine Ratio 34.6 H Glucose 89 Calcium 9.2 Magnesium 1.8 Nasal Screen MRSA (PCR) (1) CHF (congestive heart failure) Heart failure chronicity: acute on chronic Heart failure type: unspecified Qualified Code(s): I50.9 - Heart failure, unspecified
--- NOTE | 2021-08-11 17:30 | Hospitalist Progress Note ---
Date of Service August 11, 2021 Assessment & Plan (1) Acute on chronic heart failure with preserved ejection fraction: (2) SOB (shortness of breath): Plan: 83-year-old female with significant for COPD; hypothyroidism; hyperlipidemia; chronic atrial fibrillation with (Coumadin discontinued because of her fall risk), chronic kidney disease stage III; carotid stenosis; renal hypertension; urge incontinence; Alzheimer dementia presents with shortness of breath and weight gained Mostly due to acute CHF CXR showed cardiomegaly with pulmonary edema. ProBNP 8151, troponin normal Received lasix 40mg IV in the ER Staff at [facility] said pt was getting PO Lasix every other day Will give lasix 20mg IV x1 today ECho showed severe mitral tricuspid insufficiency and severe pulmonary pretension with preserved left ventricular systolic function. Grade 3 diastolic heart failure Continue neb treatment Cardiology consult Continue monitor I/O and 1.8 L fluid restriction daily Continue monitor BMP while on Lasix History of chronic obstructive pulmonary disease. Continue home inhalers and nebs p.r.n. Continue monitor closely History of atrial fibrillation rate control with Lopressor. Coumadin discontinued at last admission due to risk of fall Hyponatremia Na 129 on admission Recieved IV Lasix 40mg Na 131 today Continue monitor BMP History of hyperlipidemia Continue statin History of hypertension On Lopressor. History of hypothyroidism Continue Synthroid. History of dementia Continue monitor for delirium. Deep venous thrombosis prophylaxis on Lovenox Code status DNR Disposition Spoke to her niece who is the POA and confirmed code status DNR Admission and Anticipated Discharge Date Admission Date: August 10, 2021 Subjective Pt was seen and examined for follow up of SOB Sitting in chair with no acute distress Pt was just finished feeding herself She said that she is feeling good She was saturated well on RA She used a wheelchair to ambulate Denies any chest pain, palpitation and SOB Review of Systems Review of Systems: All systems reviewed & are unremarkable except as noted in Subjective Physical Exam Physical Exam: General- No acute distress Head- atraumatic Eyes- PERRL, EOMI, ENT- oropharynx clear, decrease hearing function Neck- supple, no JVD Lungs- clear to auscultation Heart- irregular rhythm; no murmur Abdomen- normal bowel sounds, soft, nontender Extremities- no calf tenderness Neuro- alert, oriented x 3; PERRL, EOMI; no facial palsy; no dysarthria Skin- warm & dry Results & Data Results & Data ([facility]) Vital Signs (Past 12 Hours) Vital Signs Temp Pulse Pulse Resp BP BP Pulse Ox 08/11/21 16:00 36.4 C L 82 18 148/79 H 93 08/11/21 15:45 71 08/11/21 11:59 36.4 C L 73 18 125/69 90 08/11/21 09:37 86 08/11/21 08:00 36.7 C 94 H 18 151/73 H 90 08/11/21 07:54 87 18 92
[2021-08-11] MEDS: MIRTAZAPINE TAB 15 MG TAB PO SCH (22:25)
[2021-08-11] MEDS: ENOXAPARIN INJ 30 MG/0.3 ML SYR SQ SCH (22:25)
[2021-08-11] MEDS: FLUTICASONE/VILANTEROL 100/25MCG 14 PUFFS/INHALER INH SCH (22:27)
[2021-08-12 00:08] LABS: Calcium 8.6 mg/dl (8.5-10.1); Creatinine Clr Calc Pharmacy 30.7 ml/min; Est GFR (African American) 65.3 ml/min; Est GFR (Non-African American) 56.3 ml/min; Potassium 3.9 mmol/L (3.5-5.1)
[2021-08-12 00:19] LABS: Thyroid Stimulating Hormone 3.67 uIu/ml (0.300-4.500)
[2021-08-12] MEDS: ARTIFICIAL TEARS OP SCH ×6 (03:01→23:26)
[2021-08-12] MEDS: guaiFENesin 200 MG TAB PO SCH ×4 (06:00→23:24)
[2021-08-12] MEDS: LEVOTHYROXINE SODIUM 25 MCG TABLET PO SCH (06:00)
[2021-08-12 06:08] LABS: BUN Creatinine Ratio 36.8 (10-20); Calcium 8.7 mg/dl (8.5-10.1); Creatinine Clr Calc Pharmacy 36.8 ml/min; Est GFR (African American) 81.2 ml/min; Potassium 3.9 mmol/L (3.5-5.1)
[2021-08-12 06:14] LABS: Appearance Urine Clear (Clear); Bacteria Urine Automated Negative (Negative); Bilirubin Urine Negative (Negative); Blood Urine Negative (Negative); Color Urine Yellow; Glucose Urine UA Negative (Negative); Ketones Urine Negative (Negative); Leukocyte Esterase Urine Trace (Negative); Nitrite Urine Negative (Negative); Protein Urine Trace (Negative); RBC Urine Automated 0-4 /hpf (0-4); Specific Gravity Urine 1.014 (1.000-1.030); Urobilinogen Urine Negative (Negative); pH Urine 5.5 (4.5-7.5)
[2021-08-12] MEDS: ATORVASTATIN 20 MG TAB PO SCH (08:10)
[2021-08-12] MEDS: METOPROLOL TARTRATE 100 MG TAB PO SCH ×2 (08:10→20:58)
[2021-08-12] MEDS: ASPIRIN 81 MG ECTAB PO SCH (08:10)
[2021-08-12] MEDS: CHOLECALCIFEROL 1,000 UNITS 25 MCG TAB PO SCH (08:10)
--- NOTE | 2021-08-12 09:19 | Cardiology Progress Note ---
Date of Service August 12, 2021 Assessment & Plan (1) CHF (congestive heart failure): (2) Hypoxia: (3) Severe mitral insufficiency: (4) Severe pulmonary arterial systolic hypertension: (5) Permanent atrial fibrillation: (6) Diastolic congestive heart failure due to valvular disease: (7) Pleural effusion, right: Plan: Acute diastolic heart failure with associated right pleural effusion secondary to severe valvular heart disease, severe pulmonary hypertension. Chronic atrial fibrillation with a controlled ventricular response; anticoagulation notably discontinued in June 2020 as the risks were felt to be greater than the benefit per documentation. Continued cautious diuresis with low dose IV furosemide, supplementing potassium orally. PA and lateral chest x-ray in the AM Supplement oxygen as needed. Laboratory work in the AM Admission and Anticipated Discharge Date Admission Date: August 10, 2021 Supervising Physician Co-Signing Physician Notes Patient was seen and personally examined. Overall appears brighter than yesterday answering questions appropriately. Assessment and plan as outlined above Subjective Patient seen and examined. Chart, medications, and telemetry reviewed. Very hard of hearing, favoring her right ear. She notes a hard time breathing when attempting to lay on her back. No chest pain or palpitations. I/O's negative 1,935 mL's overall. Telemetry: Atrial fibrillation with rates in the 60's - 70's. Review of Systems Review of Systems: Somewhat difficult to obtain. Very hard of hearing History of dementia Physical Exam Physical Exam: General: A&O to person and place. NAD. HENT: Normocephalic. Atraumatic. Eyes: PER. Conjunctiva pink, sclera clear. Neck: + JVD. + bruits. Heart: Irregularly irregular in the 70's. Grade II/ systolic murmur. No diastolic murmur. No rub. PMI is nondisplaced. Lungs: Decreased. Diminished at the bases. Absent breath sounds 1/4 up on the right. + Rales. No wheeze. Abdomen: +BS. Soft. Nontender. No masses or organomegaly. Extremities: Ecchymosis left greater than right. No clubbing. No cyanosis. Limited neurological examination is without focal deficits. Pulses: radial=2/4, posterior tibial=1/4. Results & Data ([facility]) Vital Signs (Past 12 Hours) Vital Signs Temp Pulse Pulse Resp BP Pulse Ox 08/12/21 08:00 68 10/11/21 07:41 36.5 C 68 18 133/80 93 08/12/21 05:11 37.1 C 82 20 125/76 96 08/11/21 23:23 69 08/11/21 23:00 36.4 C L 63 17 137/62 93 08/11/21 22:24 36.8 C 76 18 136/70 91 Laboratory Results Laboratory Results - last 24 hr 08/11/21 08/11/21 08/11/21 23:41 23:41 23:44 Sodium 131 L Potassium 3.9 Chloride 97 L Carbon Dioxide 26 Anion Gap 8.0 BUN 30 H Creatinine 0.91 Est Cr Clr Drug Dosing 30.7 Est GFR ( Amer) 65.3 Est GFR (Non-Af Amer) 56.3 BUN/Creatinine Ratio 33.0 H Glucose 97 Osmolality 275 L Calcium 8.6 Ammonia 25.0 TSH 3.670 Urine Color Urine Appearance Urine pH Ur Specific [place] Urine Protein Urine Glucose (UA) Urine Ketones Urine Blood Urine Nitrite Urine Bilirubin Urine Urobilinogen Ur Leukocyte Esterase Urine WBC (Auto) Urine RBC (Auto) U Hyaline Cast (Auto) U Epithel Cells (Auto) Urine Bacteria (Auto) 08/12/21 08/12/21 05:28 05:56 Sodium 129 L Potassium 3.9 Chloride 99 Carbon Dioxide 24 Anion Gap 6.0 BUN 28 H Creatinine 0.76 Est Cr Clr Drug Dosing 36.8 Est GFR ( Amer) 81.2 Est GFR (Non-Af Amer) 70.0 BUN/Creatinine Ratio 36.8 H Glucose 93 Osmolality Calcium 8.7 Ammonia TSH Urine Color Yellow Urine Appearance Clear Urine pH 5.5 Ur Specific [place] 1.014 Urine Protein Trace H Urine Glucose (UA) Negative Urine Ketones Negative Urine Blood Negative Urine Nitrite Negative Urine Bilirubin Negative Urine Urobilinogen Negative Ur Leukocyte Esterase Trace H Urine WBC (Auto) 1-5 Urine RBC (Auto) 0-4 U Hyaline Cast (Auto) 1-5 U Epithel Cells (Auto) 5-10 H Urine Bacteria (Auto) Negative (1) CHF (congestive heart failure) Heart failure chronicity: acute on chronic Heart failure type: unspecified Qualified Code(s): I50.9 - Heart failure, unspecified
[2021-08-12] MEDS ORDERED: FUROSEMIDE 20 MG in SYRINGE 0 ML IV ONE (09:26)
[2021-08-12] MEDS ORDERED: POTASSIUM CHLORIDE 10 MEQ TABCR PO ONE (09:27)
--- NOTE | 2021-08-12 13:19 | XRay Report ---
XR chest 2V PA/lateral HISTORY: reassess right pleural effusion COMPARISON: Chest 08/10/2021. FINDINGS: Moderate right and small left pleural effusions remain unchanged. No pneumothorax. The hear t is mildly enlarged. There is mild diffuse interstitial thickening, unchanged. This favors mild inte rstitial pulmonary edema. Chronic fracture deformity within the proximal left humerus is again noted. Multiple compression deformities within the thoracic and lumbar spine are likely old. IMPRESSION: 1. No change in the cardiomegaly with mild pulmonary edema. 2. Moderate right and small left pleural effusions persist. ACT 112: Negative or not required by law. Electronically signed by: Jefe Hewitt M.D. 08/12/2021 1:18 PM
[2021-08-12] MEDS: ENOXAPARIN INJ 30 MG/0.3 ML SYR SQ SCH (20:56)
[2021-08-12] MEDS: FLUTICASONE/VILANTEROL 100/25MCG 14 PUFFS/INHALER INH SCH (20:58)
[2021-08-12] MEDS: MIRTAZAPINE TAB 15 MG TAB PO SCH (20:59)
--- NOTE | 2021-08-12 23:40 | Hospitalist Progress Note ---
Date of Service August 12, 2021 Assessment & Plan (1) Acute on chronic heart failure with preserved ejection fraction: (2) SOB (shortness of breath): Plan: 83-year-old female with significant for COPD; hypothyroidism; hyperlipidemia; chronic atrial fibrillation with (Coumadin discontinued because of her fall risk), chronic kidney disease stage III; carotid stenosis; renal hypertension; urge incontinence; Alzheimer dementia presents with shortness of breath and weight gained Mostly due to acute CHF CXR showed cardiomegaly with pulmonary edema. ProBNP 8151, troponin normal Received lasix 40mg IV in the ER Staff at [facility] said pt was getting PO Lasix every other day lasix 20mg IV x1 today ECho showed severe mitral tricuspid insufficiency and severe pulmonary pretension with preserved left ventricular systolic function. Grade 3 diastolic heart failure Continue neb treatment Cardiology consult Continue monitor I/O and 1.8 L fluid restriction daily Continue monitor BMP while on Lasix Plan to transition to PO lasix in am History of chronic obstructive pulmonary disease. Continue home inhalers and nebs p.r.n. Continue monitor closely History of atrial fibrillation rate control with Lopressor. Coumadin discontinued at last admission due to risk of fall Hyponatremia Na 129 on admission Recieved IV Lasix 40mg Na 129 today Continue monitor BMP History of hyperlipidemia Continue statin History of hypertension On Lopressor. History of hypothyroidism Continue Synthroid. History of dementia Continue monitor for delirium. Deep venous thrombosis prophylaxis on Lovenox Code status DNR Disposition Spoke to her niece who is the POA and confirmed code status DNR Admission and Anticipated Discharge Date Admission Date: August 10, 2021 Subjective Pt was seen and examined for follow up of SOB Lying in bed with no acute distress She said that she is feeling good She used a wheelchair to ambulate Denies any chest pain, palpitation and SOB Review of Systems Review of Systems: All systems reviewed & are unremarkable except as noted in Subjective Physical Exam Physical Exam: General- No acute distress Head- atraumatic Eyes- PERRL, EOMI, ENT- oropharynx clear, decrease hearing function Neck- supple, no JVD Lungs- clear to auscultation Heart- irregular rhythm; no murmur Abdomen- normal bowel sounds, soft, nontender Extremities- no calf tenderness Neuro- alert, oriented x 3; PERRL, EOMI; no facial palsy; no dysarthria Skin- warm & dry Results & Data Results & Data ([facility]) Vital Signs (Past 12 Hours) Vital Signs Temp Pulse Resp BP Pulse Ox 08/12/21 19:24 36.7 C 74 17 128/73 90 08/12/21 15:29 36.6 C 67 18 112/69 91 08/12/21 11:54 36.6 C 63 18 118/72 92
[2021-08-13] MEDS: ARTIFICIAL TEARS OP SCH ×6 (04:05→23:48)
[2021-08-13] MEDS: guaiFENesin 200 MG TAB PO SCH ×4 (06:05→23:49)
[2021-08-13] MEDS: LEVOTHYROXINE SODIUM 25 MCG TABLET PO SCH (06:05)
[2021-08-13] MEDS: ASPIRIN 81 MG ECTAB PO SCH (07:36)
[2021-08-13] MEDS: METOPROLOL TARTRATE 100 MG TAB PO SCH ×2 (07:36→20:35)
[2021-08-13] MEDS: ATORVASTATIN 20 MG TAB PO SCH (07:37)
[2021-08-13] MEDS: CHOLECALCIFEROL 1,000 UNITS 25 MCG TAB PO SCH (07:37)
--- NOTE | 2021-08-13 09:30 | Cardiology Progress Note ---
Date of Service August 13, 2021 Assessment & Plan (1) CHF (congestive heart failure): (2) Hypoxia: (3) Severe mitral insufficiency: (4) Severe pulmonary arterial systolic hypertension: (5) Permanent atrial fibrillation: (6) Diastolic congestive heart failure due to valvular disease: (7) Pleural effusion, right: Plan: Acute diastolic heart failure with associated right pleural effusion secondary to severe valvular heart disease, severe pulmonary hypertension. Chronic atrial fibrillation with a controlled ventricular response; anticoagulation notably discontinued in June 2020 as the risks were felt to be greater than the benefit per documentation. Continue diuresis with low dose IV furosemide, supplementing potassium orally. Supplement oxygen as needed. Continue beta-lazara (metoprolol tartrate), aspirin, and statin. Laboratory work in the AM. Admission and Anticipated Discharge Date Admission Date: August 10, 2021 Supervising Physician Co-Signing Physician Notes Patient was seen and personally examined. Plan as outlined above additional IV diuretic today clinically improving still with diminished breath sounds right base Subjective Patient seen and examined in the bedside chair. Chart, medications, and telemetry reviewed. Hard of hearing, favoring her right ear. Breathing has improved. No chest pain or palpitations. I/O's negative 2,732 mL's overall. Telemetry: Atrial fibrillation with rates in the 60's - 80's. Hyponatremia mildly improved. Review of Systems Review of Systems: Complete Review of Systems is as stated above, negative, or noncontributory. Physical Exam Physical Exam: General: A&O to person and place. NAD. HENT: Normocephalic. Atraumatic. Eyes: PER. Conjunctiva pink, sclera clear. Neck: No overt JVD. Heart: Irregularly irregular in the 70's. Grade II/ systolic murmur. No diastolic murmur. No rub. PMI is nondisplaced. Lungs: Decreased. Diminished at the bases. Absent breath sounds 1/4 up on the right. No rales. No wheeze. Abdomen: +BS. Soft. Nontender. No masses or organomegaly. Extremities: Ecchymosis left greater than right. No clubbing. No cyanosis. Limited neurological examination is without focal deficits. Pulses: radial=2/4, posterior tibial=1/4. Results & Data ([facility]) Vital Signs (Past 12 Hours) Vital Signs Temp Pulse Resp BP Pulse Ox 08/13/21 07:35 36.6 C 81 20 160/93 H 92 08/13/21 03:09 36.5 C 66 19 134/76 94 08/12/21 22:38 36.7 C 60 16 137/81 91 Laboratory Results Laboratory Results - last 24 hr 08/13/21 08:45 Sodium 132 L Potassium 4.0 Chloride 99 Carbon Dioxide 28 Anion Gap 5.0 BUN 29 H Creatinine 1.01 Est Cr Clr Drug Dosing 27.7 Est GFR ( Amer) 57.6 Est GFR (Non-Af Amer) 49.7 BUN/Creatinine Ratio 29.1 H Glucose 108 H Calcium 9.3 Diagnostic Findings CXR from 08/12/2021 revealed cardiomegaly, mild pulmonary edema, moderate right pleural effusion, and a small left pleural effusion. (1) CHF (congestive heart failure) Heart failure chronicity: acute on chronic Heart failure type: unspecified Qualified Code(s): I50.9 - Heart failure, unspecified
[2021-08-13 09:31] LABS: BUN Creatinine Ratio 29.1 (10-20); Calcium 9.3 mg/dl (8.5-10.1); Creatinine Clr Calc Pharmacy 27.7 ml/min; Est GFR (African American) 57.6 ml/min; Est GFR (Non-African American) 49.7 ml/min
[2021-08-13] MEDS ORDERED: FUROSEMIDE 20 MG in SYRINGE 0 ML IV ONE (10:00)
[2021-08-13] MEDS ORDERED: POTASSIUM CHLORIDE 10 MEQ TABCR PO ONE (10:00)
[2021-08-13] MEDS: ENOXAPARIN INJ 30 MG/0.3 ML SYR SQ SCH (20:34)
[2021-08-13] MEDS: FLUTICASONE/VILANTEROL 100/25MCG 14 PUFFS/INHALER INH SCH (20:35)
[2021-08-13] MEDS: MIRTAZAPINE TAB 15 MG TAB PO SCH (20:36)
--- NOTE | 2021-08-13 23:58 | Hospitalist Progress Note ---
Date of Service August 13, 2021 Assessment & Plan (1) Acute on chronic heart failure with preserved ejection fraction: (2) SOB (shortness of breath): Plan: 83-year-old female with significant for COPD; hypothyroidism; hyperlipidemia; chronic atrial fibrillation with (Coumadin discontinued because of her fall risk), chronic kidney disease stage III; carotid stenosis; renal hypertension; urge incontinence; Alzheimer dementia presents with shortness of breath and weight gained Mostly due to acute CHF CXR on admission showed cardiomegaly with pulmonary edema. ProBNP 8151, troponin normal Received lasix 40mg IV in the ER Staff at [facility] said pt was getting PO Lasix every other day lasix 20mg IV x1 today ECho showed severe mitral tricuspid insufficiency and severe pulmonary pretension with preserved left ventricular systolic function. Grade 3 diastolic heart failure Continue neb treatment Cardiology consult Continue monitor I/O and 1.8 L fluid restriction daily Repeat CXR showed Moderate right and small left pleural effusions persist. Lasix 20mg IV x1 given today Continue monitor BMP while on Lasix Plan to transition to PO lasix in am History of chronic obstructive pulmonary disease. Continue home inhalers and nebs p.r.n. Continue monitor closely History of atrial fibrillation rate control with Lopressor. Coumadin discontinued at last admission due to risk of fall Hyponatremia Na 129 on admission Recieved IV Lasix 40mg Na 132 today Continue monitor BMP History of hyperlipidemia Continue statin History of hypertension On Lopressor. History of hypothyroidism Continue Synthroid. History of dementia Continue monitor for delirium. Deep venous thrombosis prophylaxis on Lovenox Code status DNR Disposition Spoke to her niece who is the POA and confirmed code status DNR Admission and Anticipated Discharge Date Admission Date: August 10, 2021 Subjective Pt was seen and examined for follow up of SOB Sitting in chair with no acute distress She used a wheelchair to ambulate Denies any chest pain, palpitation and SOB Review of Systems Review of Systems: All systems reviewed & are unremarkable except as noted in Subjective Physical Exam Physical Exam: General- No acute distress Head- atraumatic Eyes- PERRL, EOMI, ENT- oropharynx clear, decrease hearing function Neck- supple, no JVD Lungs- clear to auscultation Heart- irregular rhythm; no murmur Abdomen- normal bowel sounds, soft, nontender Extremities- no calf tenderness Neuro- alert, oriented x 3; PERRL, EOMI; no facial palsy; no dysarthria Skin- warm & dry Results & Data Results & Data ([facility]) Vital Signs (Past 12 Hours) Vital Signs Temp Pulse Pulse Resp BP Pulse Ox 08/13/21 23:00 36 C L 74 18 136/81 95 08/13/21 19:00 36.9 C 72 20 121/71 94 08/13/21 15:16 36.6 C 70 20 126/73 93 08/13/21 15:00 66 08/13/21 12:11 36.4 C L 59 L 18 127/76 91
[2021-08-14] MEDS: ARTIFICIAL TEARS OP SCH ×6 (04:13→23:26)
[2021-08-14] MEDS: guaiFENesin 200 MG TAB PO SCH ×4 (05:31→23:25)
[2021-08-14] MEDS: LEVOTHYROXINE SODIUM 25 MCG TABLET PO SCH (05:31)
[2021-08-14 06:31] LABS: Hematocrit (blood only) 38.7 % (37-47); Mean Corpuscular Hemoglobin 32.1 pg (25-34); Mean Corpuscular Hgb Conc 33.6 g/dL (32-36); Mean Corpuscular Volume 95.6 fL (80-100); Mean Platelet Volume 9.7 fL (7.4-10.4); Platelet Count 177 K/uL (130-400); RDW Coefficient of Variation 15.9 % (11.5-14.5); RDW Standard Deviation 55.3 fL (36.4-46.3); Red Blood Count 4.05 M/uL (4.2-5.4); White Blood Count 5.76 K/uL (4.8-10.8)
[2021-08-14 07:15] LABS: BUN Creatinine Ratio 31.6 (10-20); Calcium 9.2 mg/dl (8.5-10.1); Creatinine Clr Calc Pharmacy 27.4 ml/min; Est GFR (African American) 56.9 ml/min; Est GFR (Non-African American) 49.1 ml/min; Magnesium 1.7 mg/dl (1.8-2.4); Potassium 4.5 mmol/L (3.5-5.1)
[2021-08-14 07:16] LABS: Phosphorus 2.9 mg/dl (2.5-4.9)
[2021-08-14] MEDS: ASPIRIN 81 MG ECTAB PO SCH (07:27)
[2021-08-14] MEDS: CHOLECALCIFEROL 1,000 UNITS 25 MCG TAB PO SCH (07:27)
[2021-08-14] MEDS: METOPROLOL TARTRATE 100 MG TAB PO SCH ×2 (07:27→20:24)
[2021-08-14] MEDS: ATORVASTATIN 20 MG TAB PO SCH (07:27)
--- NOTE | 2021-08-14 08:15 | Hospitalist Progress Note ---
Date of Service August 14, 2021 Assessment & Plan (1) Acute on chronic heart failure with preserved ejection fraction: (2) SOB (shortness of breath): Plan: 83-year-old female with significant for COPD; hypothyroidism; hyperlipidemia; chronic atrial fibrillation with (Coumadin discontinued because of her fall risk), chronic kidney disease stage III; carotid stenosis; renal hypertension; urge incontinence; Alzheimer dementia presents with shortness of breath and weight gained Mostly due to acute CHF CXR on admission showed cardiomegaly with pulmonary edema. ProBNP 8151, troponin normal Received lasix 40mg IV in the ER Per Staff at [facility] - pt was getting PO Lasix every other day was on lasix 20mg IV daily - switch to PO lasix 40 mg daily (08/14/21) Echo showed severe mitral tricuspid insufficiency and severe pulmonary pretension with preserved left ventricular systolic function. Grade 3 diastolic heart failure Continue neb treatment Cardiology consult Continue monitor I/O and 1.8 L fluid restriction daily Repeat CXR showed Moderate right and small left pleural effusions persist. Continue monitor BMP while on Lasix History of chronic obstructive pulmonary disease. Continue home inhalers and nebs p.r.n. Continue monitor closely History of atrial fibrillation rate control with Lopressor. Coumadin discontinued at last admission due to risk of fall Hyponatremia Na 129 on admission Received IV Lasix 40mg Na 132 Continue monitor BMP History of hyperlipidemia Continue statin History of hypertension On Lopressor. History of hypothyroidism Continue Synthroid. History of dementia Continue monitor for delirium. Frequent urination noted by nursing staff pt has hx of urge incontinence, and now also on lasix UA obtained to r/o poss. UTI, UA unremarkable DVT prophylaxis on Lovenox Code status DNR Disposition Admitting provider spoke to pt's niece who is the POA and confirmed code status DNR Admission and Anticipated Discharge Date Admission Date: August 10, 2021 Subjective Pt was seen and examined for follow up of SOB, CHF, pl. effusion Laying in bed in NAD, currently laying flat on her back, breathing comfortably on RA Denies any chest pain, palpitation and SOB Per nursing staff, frequent urination w/ low volume urine Review of Systems Review of Systems: All systems reviewed & are unremarkable except as noted in Subjective Physical Exam Physical Exam: General- elderly F, No acute distress Head- atraumatic Eyes- PERRL, EOMI, ENT- oropharynx clear, decreased hearing function Neck- supple, no JVD Lungs- clear to auscultation Heart- irregular rhythm; + murmur Abdomen- normal bowel sounds, soft, nontender Extremities- no calf tenderness, moves extremities, no LE edema Neuro- awake and alert, PERRL, EOMI; + hearing impairment, no facial asymmetry; no dysarthria Skin- warm & dry Results & Data Results & Data ([facility]) Vital Signs (Past 12 Hours) Vital Signs Temp Pulse Pulse Resp BP Pulse Ox 08/14/21 07:00 36.6 C 73 73 20 150/81 H 93 08/14/21 03:30 36.6 C 67 18 137/70 94 08/14/21 03:04 70 08/13/21 23:00 36 C L 74 18 136/81 95 Laboratory Results 08/14/21 08/14/21 08/13/21 Range/Units 05:49 05:49 08:45 WBC 5.76 (4.8-10.8) K/uL RBC 4.05 L (4.2-5.4) M/uL Hgb 13.0 (12.0-16.0) g/dL Hct 38.7 (37-47) % MCV 95.6 (80-100) fL MCH 32.1 (25-34) pg MCHC 33.6 (32-36) g/dL RDW Std Deviation 55.3 H (36.4-46.3) fL RDW Coeff of Tru 15.9 H (11.5-14.5) % Plt Count 177 (130-400) K/uL MPV 9.7 (7.4-10.4) fL Sodium 132 L 132 L (136-145) mmol/L Potassium 4.5 4.0 (3.5-5.1) mmol/L Chloride 98 99 (98-107) mmol/L Carbon Dioxide 28 28 (21-32) mmol/L Anion Gap 6.0 5.0 (3-11) BUN 32 H 29 H (7-18) mg/dl Creatinine 1.02 1.01 (0.6-1.2) mg/dl Est Cr Clr Drug Dosing 27.4 27.7 ml/min Est GFR ( Amer) 56.9 57.6 ml/min Est GFR (Non-Af Amer) 49.1 49.7 ml/min BUN/Creatinine Ratio 31.6 H 29.1 H (10-20) Glucose 94 108 H (70-99) mg/dl Calcium 9.2 9.3 (8.5-10.1) mg/dl Phosphorus 2.9 (2.5-4.9) mg/dl Magnesium 1.7 L (1.8-2.4) mg/dl Medications Administered Current Inpatient Medications Acetaminophen (Acetaminophen 500 Mg Tab) 1,000 mg PO BID PRN PRN Reason: Fever Or Pain Stop: 09/09/21 16:29 Albuterol (Albuterol Hfa 8 Gm Inhaler) 2 puffs INH QID PRN PRN Reason: Shortness Of Breath Stop: 09/09/21 16:17 Albuterol (Albut/Ipratrop 3mg/0.5mg Neb 3 Ml Vial) 3 ml NEB Q4R PRN PRN Reason: Shortness Of Breath Or Wheezing Stop: 09/10/21 08:27 Artificial Tears (Artificial Tears) 1 drops OP Q4H ALICE Stop: 09/09/21 16:17 Last Admin: 08/14/21 07:27 Dose: 1 drops Documented by: Aspirin (Aspirin 81 Mg Ectab) 81 mg PO DAILY ALICE Stop: 09/10/21 08:59 Last Admin: 08/14/21 07:27 Dose: 81 mg Documented by: Atorvastatin Calcium (Atorvastatin 20 Mg Tab) 20 mg PO DAILY ALICE Stop: 09/10/21 08:59 Last Admin: 08/14/21 07:27 Dose: 20 mg Documented by: Enoxaparin Sodium (Enoxaparin Inj 30 Mg/0.3 Ml Syr) 30 mg SQ HS ALICE Stop: 09/10/21 20:59 Last Admin: 08/13/21 20:34 Dose: 30 mg Documented by: Fluticasone/Vilanterol (Fluticasone/Vilanterol 100/25mcg 14 Puffs/Inhaler) 1 puffs INH QPM ALICE; Protocol Stop: 09/09/21 20:59 Last Admin: 08/13/21 20:35 Dose: 1 puffs Documented by: Guaifenesin (Guaifenesin 200 Mg Tab) 200 mg PO Q6 ALICE Stop: 09/09/21 16:59 Last Admin: 08/14/21 05:31 Dose: 200 mg Documented by: Levothyroxine Sodium (Levothyroxine Sodium 25 Mcg Tablet) 25 mcg PO DAILYBB ALICE Stop: 09/10/21 06:29 Last Admin: 08/14/21 05:31 Dose: 25 mcg Documented by: Lidocaine (Lidocaine 4% Cream 15 Gm Tube) 1 appln EXT TID PRN PRN Reason: Pain Stop: 09/09/21 16:17 Magnesium Oxide (Magnesium Oxide 400 Mg Tab) 400 mg PO BID ALICE Stop: 09/13/21 08:59 Metoprolol Tartrate (Metoprolol Tartrate 100 Mg Tab) 100 mg PO BID ALICE Stop: 09/09/21 20:59 Last Admin: 08/14/21 07:27 Dose: 100 mg Documented by: Miconazole Nitrate (Miconazole Nitrate 2% Cr 30 Gm Tube) 1 appln TOP TID PRN PRN Reason: sore protection Stop: 09/09/21 16:17 Mirtazapine (Mirtazapine Tab 15 Mg Tab) 7.5 mg PO HS ALICE Stop: 09/09/21 20:59 Last Admin: 08/13/21 20:36 Dose: 7.5 mg Documented by: Vitamin D (Cholecalciferol 1,000 Units 25 Mcg Tab) 1,000 units PO DAILY ALICE Stop: 09/10/21 08:59 Last Admin: 08/14/21 07:27 Dose: 1,000 units Documented by:
[2021-08-14] MEDS: MAGNESIUM OXIDE 400 MG TAB PO SCH ×2 (09:33→20:24)
--- NOTE | 2021-08-14 09:49 | Cardiology Progress Note ---
Date of Service August 14, 2021 Assessment & Plan (1) CHF (congestive heart failure): (2) Hypoxia: (3) Severe mitral insufficiency: (4) Severe pulmonary arterial systolic hypertension: (5) Permanent atrial fibrillation: (6) Diastolic congestive heart failure due to valvular disease: (7) Pleural effusion, right: Plan: Presentation with acute diastolic heart failure with associated right pleural effusion secondary to severe valvular heart disease, severe pulmonary hypertension. Chronic atrial fibrillation with a controlled ventricular response; anticoagulation notably discontinued in June 2020 as the risks were felt to be greater than the benefit per documentation. Transition to oral furosemide today, 40 mg/day, with 10 mEq's of supplemental potassium chloride. Continue beta-lazara (metoprolol tartrate), aspirin, and statin. Supplement magnesium Admission and Anticipated Discharge Date Admission Date: August 10, 2021 Supervising Physician Co-Signing Physician Notes Patient was seen and examined agree with outlined recommendations as above. Clinical exam continues to slowly improve. No signs of profound volume overload and will switch diuretic to oral Subjective Patient seen and examined. Chart, medications, and telemetry reviewed. No new complaints. No chest pain. No new or worsening dyspnea. No palpitations. No peripheral edema. I/O's -3,097 mL overall. Telemetry: Atrial fibrillation typically in the 60s to 70s. No significant bradycardia or pauses.. Review of Systems Review of Systems: Complete Review of Systems is as stated above, negative, or noncontributory. Physical Exam Physical Exam: General: A&O to person and place. NAD. HENT: Normocephalic. Atraumatic. Eyes: PER. Conjunctiva pink, sclera clear. Neck: No overt JVD. Heart: Irregularly irregular in the 70's. Grade II/ systolic murmur. No diastolic murmur. No rub. PMI is nondisplaced. Lungs: Decreased. Diminished at the bases. Absent breath sounds 1/4 up on the right. No rales. No wheeze. Abdomen: +BS. Soft. Nontender. No masses or organomegaly. Extremities: Ecchymosis left greater than right. No clubbing. No cyanosis. Limited neurological examination is without focal deficits. Pulses: radial=2/4, posterior tibial=1/4. Results & Data ([facility]) Vital Signs (Past 12 Hours) Vital Signs Temp Pulse Pulse Resp BP Pulse Ox 10/13/21 07:00 36.6 C 73 73 20 150/81 H 93 08/14/21 03:30 36.6 C 67 18 137/70 94 08/14/21 03:04 70 08/13/21 23:00 36 C L 74 18 136/81 95 Diagnostic Findings Laboratory Results - last 24 hr 08/14/21 08/14/21 05:49 05:49 WBC 5.76 RBC 4.05 L Hgb 13.0 Hct 38.7 MCV 95.6 MCH 32.1 MCHC 33.6 RDW Std Deviation 55.3 H RDW Coeff of Tru 15.9 H Plt Count 177 MPV 9.7 Sodium 132 L Potassium 4.5 Chloride 98 Carbon Dioxide 28 Anion Gap 6.0 BUN 32 H Creatinine 1.02 Est Cr Clr Drug Dosing 27.4 Est GFR ( Amer) 56.9 Est GFR (Non-Af Amer) 49.1 BUN/Creatinine Ratio 31.6 H Glucose 94 Calcium 9.2 Phosphorus 2.9 Magnesium 1.7 L (1) CHF (congestive heart failure) Heart failure chronicity: acute on chronic Heart failure type: unspecified Qualified Code(s): I50.9 - Heart failure, unspecified
[2021-08-14] MEDS: FUROSEMIDE 40 MG TAB PO SCH (10:46)
[2021-08-14] MEDS: POTASSIUM CHLORIDE 10 MEQ TABCR PO SCH (10:46)
[2021-08-14 18:37] LABS: Appearance Urine Clear (Clear); Bilirubin Urine Negative (Negative); Blood Urine Negative (Negative); Color Urine Yellow; Glucose Urine UA Negative (Negative); Ketones Urine Negative (Negative); Leukocyte Esterase Urine Negative (Negative); Nitrite Urine Negative (Negative); Protein Urine Negative (Negative); Specific Gravity Urine 1.006 (1.000-1.030); Urobilinogen Urine Negative (Negative); pH Urine 6.5 (4.5-7.5)
[2021-08-14] MEDS: FLUTICASONE/VILANTEROL 100/25MCG 14 PUFFS/INHALER INH SCH (20:21)
[2021-08-14] MEDS: ENOXAPARIN INJ 30 MG/0.3 ML SYR SQ SCH (20:22)
[2021-08-14] MEDS: MIRTAZAPINE TAB 15 MG TAB PO SCH (20:23)
[2021-08-15] MEDS: ARTIFICIAL TEARS OP SCH ×3 (04:00→12:02)
[2021-08-15] MEDS: guaiFENesin 200 MG TAB PO SCH ×2 (06:06→12:03)
[2021-08-15] MEDS: LEVOTHYROXINE SODIUM 25 MCG TABLET PO SCH (06:07)
[2021-08-15 07:14] LABS: BUN Creatinine Ratio 31.4 (10-20); Calcium 9.3 mg/dl (8.5-10.1); Creatinine Clr Calc Pharmacy 32.5 ml/min; Est GFR (African American) 69.9 ml/min; Est GFR (Non-African American) 60.3 ml/min; Magnesium 1.7 mg/dl (1.8-2.4); Potassium 4.1 mmol/L (3.5-5.1)
[2021-08-15] MEDS: CHOLECALCIFEROL 1,000 UNITS 25 MCG TAB PO SCH (08:38)
[2021-08-15] MEDS: MAGNESIUM OXIDE 400 MG TAB PO SCH (08:38)
[2021-08-15] MEDS: FUROSEMIDE 40 MG TAB PO SCH (08:39)
[2021-08-15] MEDS: POTASSIUM CHLORIDE 10 MEQ TABCR PO SCH (08:39)
[2021-08-15] MEDS: ATORVASTATIN 20 MG TAB PO SCH (08:39)
[2021-08-15] MEDS: ASPIRIN 81 MG ECTAB PO SCH (08:39)
--- NOTE | 2021-08-15 09:06 | Hospitalist Progress Note ---
Date of Service August 15, 2021 Assessment & Plan (1) Acute on chronic heart failure with preserved ejection fraction: (2) SOB (shortness of breath): Plan: 83-year-old female with significant for COPD; hypothyroidism; hyperlipidemia; chronic atrial fibrillation with (Coumadin discontinued because of her fall risk), chronic kidney disease stage III; carotid stenosis; renal hypertension; urge incontinence; Alzheimer dementia presents with shortness of breath and weight gained Mostly due to acute CHF CXR on admission showed cardiomegaly with pulmonary edema. ProBNP 8151, troponin normal Received lasix 40mg IV in the ER Per Staff at [facility] - pt was getting PO Lasix every other day was on lasix 20mg IV daily - switched to PO lasix 40 mg daily (08/14/21) Echo showed severe mitral tricuspid insufficiency and severe pulmonary pretension with preserved left ventricular systolic function. Grade 3 diastolic heart failure Continue neb treatment Cardiology consult Continue monitor I/O and 1.8 L fluid restriction daily Repeat CXR showed Moderate right and small left pleural effusions persist. Continue monitor BMP while on Lasix History of chronic obstructive pulmonary disease. Continue home inhalers and nebs p.r.n. Continue monitor closely History of atrial fibrillation rate control with Lopressor. Coumadin discontinued at last admission due to risk of fall Hyponatremia Na 129 on admission Received IV Lasix 40mg Na 132 , now back down to 129 Continue monitor BMP History of hyperlipidemia Continue statin History of hypertension On Lopressor. History of hypothyroidism Continue Synthroid. History of dementia Continue monitor for delirium. Frequent urination noted by nursing staff pt has hx of urge incontinence, and now also on lasix UA obtained to r/o poss. UTI, UA unremarkable DVT prophylaxis on Lovenox Code status DNR - Admitting provider spoke to pt's niece who is the POA and confirmed code status DNR Disposition - plan to DC today Admission and Anticipated Discharge Date Admission Date: August 10, 2021 Subjective Pt was seen and examined for follow up of SOB, CHF, pl. effusion Laying in bed in NAD, currently laying flat on her back, breathing comfortably on RA Denies any chest pain, palpitation and SOB Review of Systems Review of Systems: All systems reviewed & are unremarkable except as noted in Subjective Physical Exam Physical Exam: General- elderly F, No acute distress Head- atraumatic Eyes- PERRL, EOMI, ENT- oropharynx clear, decreased hearing function Neck- supple, no JVD Lungs- clear to auscultation Heart- irregular rhythm; + murmur Abdomen- normal bowel sounds, soft, nontender Extremities- no calf tenderness, moves extremities, no LE edema Neuro- awake and alert, PERRL, EOMI; + hearing impairment, no facial asymmetry; no dysarthria Skin- warm & dry Results & Data Results & Data ([facility]) Vital Signs (Past 12 Hours) Vital Signs Temp Pulse Resp BP Pulse Ox 08/15/21 07:45 36.6 C 79 16 154/82 H 91 08/15/21 04:00 36.4 C L 73 18 127/74 92 08/14/21 23:49 36.6 C 73 20 155/78 H 94 Laboratory Results 08/15/21 08/14/21 Range/Units 06:01 18:28 Sodium 129 L (136-145) mmol/L Potassium 4.1 (3.5-5.1) mmol/L Chloride 96 L (98-107) mmol/L Carbon Dioxide 30 (21-32) mmol/L Anion Gap 3.0 (3-11) BUN 27 H (7-18) mg/dl Creatinine 0.86 (0.6-1.2) mg/dl Est Cr Clr Drug Dosing 32.5 ml/min Est GFR ( Amer) 69.9 ml/min Est GFR (Non-Af Amer) 60.3 ml/min BUN/Creatinine Ratio 31.4 H (10-20) Glucose 103 H (70-99) mg/dl Calcium 9.3 (8.5-10.1) mg/dl Phosphorus 3.0 (2.5-4.9) mg/dl Magnesium 1.7 L (1.8-2.4) mg/dl Urine Color Yellow Urine Appearance Clear (Clear) Urine pH 6.5 (4.5-7.5) Ur Specific [place] 1.006 (1.000-1.030) Urine Protein Negative (Negative) Urine Glucose (UA) Negative (Negative) Urine Ketones Negative (Negative) Urine Blood Negative (Negative) Urine Nitrite Negative (Negative) Urine Bilirubin Negative (Negative) Urine Urobilinogen Negative (Negative) Ur Leukocyte Esterase Negative (Negative) Medications Administered Current Inpatient Medications Acetaminophen (Acetaminophen 500 Mg Tab) 1,000 mg PO BID PRN PRN Reason: Fever Or Pain Stop: 09/09/21 16:29 Albuterol (Albuterol Hfa 8 Gm Inhaler) 2 puffs INH QID PRN PRN Reason: Shortness Of Breath Stop: 09/09/21 16:17 Albuterol (Albut/Ipratrop 3mg/0.5mg Neb 3 Ml Vial) 3 ml NEB Q4R PRN PRN Reason: Shortness Of Breath Or Wheezing Stop: 09/10/21 08:27 Artificial Tears (Artificial Tears) 1 drops OP Q4H ALICE Stop: 09/09/21 16:17 Last Admin: 08/15/21 06:07 Dose: 1 drops Documented by: Aspirin (Aspirin 81 Mg Ectab) 81 mg PO DAILY ALICE Stop: 09/10/21 08:59 Last Admin: 08/15/21 08:39 Dose: 81 mg Documented by: Atorvastatin Calcium (Atorvastatin 20 Mg Tab) 20 mg PO DAILY ALICE Stop: 09/10/21 08:59 Last Admin: 08/15/21 08:39 Dose: 20 mg Documented by: Enoxaparin Sodium (Enoxaparin Inj 30 Mg/0.3 Ml Syr) 30 mg SQ HS ALICE Stop: 09/10/21 20:59 Last Admin: 08/14/21 20:22 Dose: 30 mg Documented by: Fluticasone/Vilanterol (Fluticasone/Vilanterol 100/25mcg 14 Puffs/Inhaler) 1 puffs INH QPM ALICE; Protocol Stop: 09/09/21 20:59 Last Admin: 08/14/21 20:21 Dose: 1 puffs Documented by: Furosemide (Furosemide 40 Mg Tab) 40 mg PO QAM ALICE Stop: 09/13/21 09:59 Last Admin: 08/15/21 08:39 Dose: 40 mg Documented by: Guaifenesin (Guaifenesin 200 Mg Tab) 200 mg PO Q6 ALICE Stop: 09/09/21 16:59 Last Admin: 08/15/21 06:06 Dose: 200 mg Documented by: Magnesium Sulfate/Dextrose (Magnesium Sulfate / D5w) 1 gm in 100 mls @ 50 mls/hr IV ONE ONE Stop: 08/15/21 11:03 Levothyroxine Sodium (Levothyroxine Sodium 25 Mcg Tablet) 25 mcg PO DAILYBB ALICE Stop: 09/10/21 06:29 Last Admin: 08/15/21 06:07 Dose: 25 mcg Documented by: Lidocaine (Lidocaine 4% Cream 15 Gm Tube) 1 appln EXT TID PRN PRN Reason: Pain Stop: 09/09/21 16:17 Magnesium Oxide (Magnesium Oxide 400 Mg Tab) 400 mg PO BID ALICE Stop: 09/13/21 08:59 Last Admin: 08/15/21 08:38 Dose: 400 mg Documented by: Metoprolol Tartrate (Metoprolol Tartrate 100 Mg Tab) 100 mg PO BID ALICE Stop: 09/09/21 20:59 Last Admin: 08/14/21 20:24 Dose: 100 mg Documented by: Miconazole Nitrate (Miconazole Nitrate 2% Cr 30 Gm Tube) 1 appln TOP TID PRN PRN Reason: sore protection Stop: 09/09/21 16:17 Mirtazapine (Mirtazapine Tab 15 Mg Tab) 7.5 mg PO HS ALICE Stop: 09/09/21 20:59 Last Admin: 08/14/21 20:23 Dose: 7.5 mg Documented by: Potassium Chloride (Potassium Chloride 10 Meq Tabcr) 10 meq PO DAILY ALICE Stop: 09/13/21 09:59 Last Admin: 08/15/21 08:39 Dose: 10 meq Documented by: Vitamin D (Cholecalciferol 1,000 Units 25 Mcg Tab) 1,000 units PO DAILY ALICE Stop: 09/10/21 08:59 Last Admin: 08/15/21 08:38 Dose: 1,000 units Documented by:
[2021-08-15] MEDS ORDERED: MAGNESIUM SULFATE / D5W 1 GM/100 ML BAG IV ONE (09:45)
[2021-08-15] MEDS: METOPROLOL TARTRATE 100 MG TAB PO SCH (09:48)
--- NOTE | 2021-08-15 10:13 | Cardiology Progress Note ---
Date of Service August 15, 2021 Assessment & Plan (1) CHF (congestive heart failure): (2) Hypoxia: (3) Severe mitral insufficiency: (4) Severe pulmonary arterial systolic hypertension: (5) Permanent atrial fibrillation: (6) Diastolic congestive heart failure due to valvular disease: (7) Pleural effusion, right: Plan: Presentation with acute diastolic heart failure with associated right pleural effusion secondary to severe valvular heart disease, severe pulmonary hypertension. Patient transitioned to oral furosemide on 08/14/2021, 40 mg/day, with 10 mEq's of supplemental potassium chloride. Chronic atrial fibrillation with a controlled ventricular response; anticoagulation notably discontinued in June 2020 as the risks were felt to be greater than the benefit per documentation. Continue rate control without anticoagulation. Hyponatremia. Chronic. Follow. Supplement magnesium Continue beta-lazara (metoprolol tartrate), aspirin, and statin as prescribed. Admission and Anticipated Discharge Date Admission Date: August 10, 2021 Supervising Physician Co-Signing Physician Notes Patient seen and examined, chart, medications telemetry reviewed. Slowly improving as above. Medications now transitioned to oral. One brief run of ventricular arrhythmias asymptomatic earlier today no further treatment indicated Continue all prior medications as ordered Subjective Patient seen and examined. Chart, medications, and telemetry reviewed. No complaints. Laying completely flat on her back. States "I feel wonderful." + Productive cough. No chest pain. No new or worsening dyspnea. No palpitations. No peripheral edema. I/O's -3,927 mL overall. Telemetry: Atrial fibrillation typically in the 60s to 80s. No significant bradycardia or pauses. Review of Systems Review of Systems: Complete Review of Systems is as stated above, negative, or noncontributory. Physical Exam Physical Exam: General: A&O to person and place. NAD. HENT: Normocephalic. Atraumatic. Eyes: PER. Conjunctiva pink, sclera clear. Neck: No JVD. Heart: Irregularly irregular in the 70's. Grade II/ systolic murmur. No diastolic murmur. No rub. Lungs: Decreased. Diminished at the right base. No rales. No wheeze. Abdomen: +BS. Soft. Nontender. No masses or organomegaly. Extremities: Ecchymosis left greater than right. No clubbing. No cyanosis. Limited neurological examination is without focal deficits. Pulses: radial=2/4, posterior tibial=1/4. Results & Data ([facility]) Vital Signs (Past 12 Hours) Vital Signs Temp Pulse Resp BP Pulse Ox 08/15/21 07:45 36.6 C 79 16 154/82 H 91 08/15/21 04:00 36.4 C L 73 18 127/74 92 08/14/21 23:49 36.6 C 73 20 155/78 H 94 Laboratory Results Laboratory Results - last 24 hr 08/14/21 08/15/21 18:28 06:01 Sodium 129 L Potassium 4.1 Chloride 96 L Carbon Dioxide 30 Anion Gap 3.0 BUN 27 H Creatinine 0.86 Est Cr Clr Drug Dosing 32.5 Est GFR ( Amer) 69.9 Est GFR (Non-Af Amer) 60.3 BUN/Creatinine Ratio 31.4 H Glucose 103 H Calcium 9.3 Phosphorus 3.0 Magnesium 1.7 L Urine Color Yellow Urine Appearance Clear Urine pH 6.5 Ur Specific [place] 1.006 Urine Protein Negative Urine Glucose (UA) Negative Urine Ketones Negative Urine Blood Negative Urine Nitrite Negative Urine Bilirubin Negative Urine Urobilinogen Negative Ur Leukocyte Esterase Negative (1) CHF (congestive heart failure) Heart failure chronicity: acute on chronic Heart failure type: unspecified Qualified Code(s): I50.9 - Heart failure, unspecified
--- NOTE | 2021-08-15 13:14 | Discharge Summary ---
Date of Service August 15, 2021 Admission HPI Per Admitting Provider 86-year-old female with past medical history significant for COPD; hypothyroidism; hyperlipidemia; chronic atrial fibrillation with (Coumadin discontinued because of her fall risk), chronic kidney disease stage III; c arotid stenosis; renal hypertension; urge incontinence; Alzheimer dementia, who lives at [facility] was brought to the ER for SOB. History obtained from the nursing staff (over the phone) , chart and patient. As per staff patient walked to the staff office complaint of SOB. Staff said that pt has been having a wet cough for the last 2 days. She said that pt had gained about 3-4 lbs in the last few days. Staff said that her oxygen saturation was in the 80's and was placed on oxygen supplement. Staff said that pt usually uses a walker to ambulate, but this morning she was feeling weak. As per staff pt takes lasix every other day. Currently pt said that she is hungry. Denies any chest pain, palpitation, dizziness and SOB. In the ER chest Xray showed cardiomegaly with pulmonary edema and Small left and moderate right pleural effusions. Lasix 40mg IV given in the ER. Admission Exam Per Admitting Provider General- No acute distress Head- atraumatic Eyes- PERRL, EOMI, ENT- oropharynx clear, decrease hearing function Neck- supple, no JVD Lungs- clear to auscultation Heart- irregular rhythm; no murmur Abdomen- normal bowel sounds, soft, nontender Extremities- no calf tenderness Neuro- alert, oriented x 3; PERRL, EOMI; no facial palsy; no dysarthria Skin- warm & dry Principal Diagnosis Acute on chronic heart failure with preserved ejection fraction Pleural effusion Hyponatremia Discharge Exam General- elderly F, No acute distress Head- atraumatic Eyes- PERRL, EOMI, ENT- oropharynx clear, decreased hearing function Neck- supple, no JVD Lungs- clear to auscultation Heart- irregular rhythm; + murmur Abdomen- normal bowel sounds, soft, nontender Extremities- no calf tenderness, moves extremities, no LE edema Neuro- awake and alert, PERRL, EOMI; + hearing impairment, no facial asymmetry; no dysarthria Skin- warm & dry Discharge Data Allergies Allergy/AdvReac Type Severity Reaction Status Date / Time oxycodone Allergy Intermediate DIZZY Verified 08/10/21 11:33 ITCHING tramadol Allergy Intermediate DIZZY Verified 08/10/21 11:33 simvastatin Allergy Mild RASH Verified 08/10/21 11:33 Consultations 08/10/21 11:28 ED Decision to Admit Stat 08/10/21 16:18 Consult Cardiology Routine Hospital Course (1) Acute on chronic heart failure with preserved ejection fraction: (2) SOB (shortness of breath): 83-year-old female with significant for COPD; hypothyroidism; hyperlipidemia; chronic atrial fibrillation with (Coumadin discontinued because of her fall risk), chronic kidney disease stage III; carotid stenosis; renal hypertension; urge incontinence; Alzheimer dementia presents with shortness of breath and weight gained Mostly due to acute CHF CXR on admission showed cardiomegaly with pulmonary edema. ProBNP 8151, troponin normal Received lasix 40mg IV in the ER Per Staff at [facility] - pt was getting PO Lasix every other day was on lasix 20mg IV daily - switched to PO lasix 40 mg daily (08/14/21) Echo showed severe mitral tricuspid insufficiency and severe pulmonary pretension with preserved left ventricular systolic function. Grade 3 diastolic heart failure Continue neb treatment Cardiology consult Continue monitor I/O and 1.8 L fluid restriction daily Repeat CXR showed Moderate right and small left pleural effusions persist. Continue monitor BMP while on Lasix History of chronic obstructive pulmonary disease. Continue home inhalers and nebs p.r.n. Continue monitor closely History of atrial fibrillation rate control with Lopressor. Coumadin discontinued at last admission due to risk of fall Hyponatremia Na 129 on admission Received IV Lasix 40mg Na 132 , now back down to 129 Continue monitor BMP History of hyperlipidemia Continue statin History of hypertension On Lopressor. History of hypothyroidism Continue Synthroid. History of dementia Continue monitor for delirium. Frequent urination noted by nursing staff pt has hx of urge incontinence, and now also on lasix UA obtained to r/o poss. UTI, UA unremarkable DVT prophylaxis on Lovenox Code status DNR - Admitting provider spoke to pt's niece who is the POA and confirmed code status DNR Disposition - plan to DC today Total Time Total Time Spent Total Time Spent (In Minutes): 40 Discharge Plan Discharge Items Patient Disposition: Personal Senior Care Reason For Visit: CHF Discharge Diagnosis: Acute on chronic heart failure with preserved ejection fraction Pleural effusion Hyponatremia Condition on Discharge: Fair Activity: Per Instructions section Non-emergency contact: Primary Care Provider and Direct Care Worker Call non-emergency contact if: you have any medication questions and your symptoms worsen Follow-up/Referrals: Montrell Gloria MD [Outside Practitioners] - (Date & Time 08/19/2021 11:00 AM Provider Aby Mcintyre Department [facility] ) Weilos [Primary Care Provider] - Diet: Low Sodium (2gm) Fluids: 1800ml (7 cups) Addtl Attending Provider Instructions: Follow-up with your primary care doctor, the appointment was scheduled for you for August 19. Take Lasix 40 mg daily, and potassium and magnesium supplement. Recommend to monitor your weight daily and read instructions below in detail. Make sure to notify your healthcare providers in any change of your weight, or any new symptoms. Addtl Project Engineering Director Provider Instructions: Call your Primary Care doctor if any of the following symptoms or problems start or get worse: * Shortness of breath or difficulty breathing * Wake up at night short of breath * Chest pain * Cough * Swelling of your hands, feet, or legs * More fatigued or tired with your normal activity * Palpitations - sudden fast heart beats WEIGHT * Weigh yourself every morning after using the bathroom. * Use the same scale. * Wear the same amount of clothing. * Write your weight down on a chart. * Call your Primary Care doctor if you gain more than 2-3 pounds in 1-2 days. MEDICATIONS * Use this discharge instruction sheet for medication instructions. * Take your medications at the time your doctor ordered. * Do not skip a dose of your medicines. * If you miss a dose of medicine, take it as soon as possible, but DO NOT DOUBLE A DOSE. * Read your medicine information when you get home. * Know all of the side effects of your medicine. If in doubt, ask your pharmacist * Call your Primary Care doctor's office if you have any side effects. * Be sure all of your doctors know what medicine and herbs you take (including cold, flu, and herbal medicine). Take the following with you to your follow-up doctor appointments: * Weight Chart * Medication List * List of questions Do not drink excessive alcohol, beer or wine. Pending Studies at Discharge: No Stand-Alone Forms: My [employer], Smoking Cessation Skilled Items Patient informed of condition?: Yes DNR: Yes Discharge Level of Care: Other Communicable Disease: No Discharge Prognosis: Stable Lines: None Urinary Catheter: No Medications and DC Order Prescriptions: New furosemide 40 mg Tablet 40 mg PO QAM Qty: 30 RF: 0 potassium chloride 10 mEq Tablet,Er Particles/Crystals 10 meq PO DAILY Qty: 30 RF: 0 magnesium oxide 400 mg (241.3 mg magnesium) Tablet 400 mg PO BID Qty: 20 RF: 0 Continued fluticasone propion-salmeterol [Advair Diskus] 250-50 mcg/dose Blister With Device 1 inh INHALATION Q12H RF: 0 prednisone 10 mg Tablet 10 mg PO DIRECTED PRN (Reason: RESCUE KIT) RF: 0 atorvastatin 20 mg Tablet 20 mg PO DAILY RF: 0 metoprolol tartrate 100 mg Tablet 100 mg PO BID RF: 0 aspirin 81 mg Tablet,Delayed Release (Dr/Ec) 81 mg PO DAILY RF: 0 acetaminophen [Tylenol Extra Strength] 500 mg Tablet 1,000 mg PO BID MDD 3000 GRAM/24 HOURS PRN (Reason: Fever Or Pain) RF: 0 levothyroxine 25 mcg Tablet 25 mcg PO DAILYBB RF: 0 albuterol sulfate [Ventolin HFA] 90 mcg/actuation Hfa Aerosol Inhaler 2 puff INHALATION QID PRN (Reason: Shortness Of Breath) RF: 0 cholecalciferol (vitamin D3) 1,000 unit Capsule 1,000 unit PO DAILY RF: 0 Systane Balance 0.6 % Drops 1 drp OPL Q4H RF: 0 furosemide [Lasix] 40 mg Tablet 20 mg PO DAILY PRN (Reason: >5 LB WT GAIN) RF: 0 lidocaine HCl [Aspercreme (lidocaine HCl)] 4 % Cream 1 applic TOPICAL TID PRN (Reason: Pain) RF: 0 mirtazapine 7.5 mg tablet 7.5 mg PO HS RF: 0 azithromycin 250 mg Tablet 0 mg PO .COMPLEX RF: 0 miconazole nitrate [Kierra] 2 % Cream 1 applic TOPICAL TID PRN (Reason: sore protection) RF: 0 Refresh P.M. (lanolin) Ointment 1 applic OPR Q4H RF: 0 Discontinued furosemide 20 mg tablet 20 mg PO QAM RF: 0 Discharge Orders: Discharge Order (Routine); Ordered 08/15/21 Ordered By: Dariel Weller Admission Data Admit Date/Time: 08/10/21 12:25 Attending Provider: Dariel Weller Admit Provider: Lexx Davis Primary Care Provider: Carlos Ramirez,[facility], [facility] Other Providers: Lexx Davis ; Prem Villar
[2021-08-17] MEDS ORDERED: FUROSEMIDE 40 MG TAB PO ONE (05:56)
== END 2021-08-15 14:40 | disposition home or self-care (01) | DRG 291 ==
LOC: ED 10:07 → SUATTDRO 12:25 → 2N 12:25